=== PATIENT | male | born 1960 | race Caucasian/White ===

== ENCOUNTER → 2020-03-19 15:23 | Outpatient (BNVA) | payer BC, SELFPAY | PROVIDERS: PCP Family Medicine; Visit Provider Internal Medicine | DX: Z95.2 Presence of prosthetic heart valve (principal); Z51.81 Encounter for therapeutic drug level monitoring; Z79.01 Long term (current) use of anticoagulants | CPT/HCPCS: 85610 ==

== ENCOUNTER → 2020-04-16 15:00 | Outpatient (BNVA) | payer BC, SELFPAY | PROVIDERS: PCP Family Medicine; Visit Provider Internal Medicine | DX: Z95.2 Presence of prosthetic heart valve (principal); Z51.81 Encounter for therapeutic drug level monitoring; Z79.01 Long term (current) use of anticoagulants | CPT/HCPCS: 85610; 99211 ==

== ENCOUNTER → 2020-05-14 15:52 | Outpatient (BNVA) | payer BC, SELFPAY | PROVIDERS: PCP Family Medicine; Visit Provider Internal Medicine | DX: Z95.2 Presence of prosthetic heart valve (principal); Z51.81 Encounter for therapeutic drug level monitoring; Z79.01 Long term (current) use of anticoagulants | CPT/HCPCS: 85610; 99211 ==

== ENCOUNTER → 2020-06-11 15:45 | Outpatient (BNVA) | payer BC, SELFPAY | PROVIDERS: PCP Family Medicine; Visit Provider Internal Medicine | DX: Z95.2 Presence of prosthetic heart valve (principal); Z51.81 Encounter for therapeutic drug level monitoring; Z79.01 Long term (current) use of anticoagulants | CPT/HCPCS: 85610; 99211 ==

== ENCOUNTER → 2020-07-09 15:43 | Outpatient (BNVA) | payer BC, SELFPAY | PROVIDERS: PCP Family Medicine; Visit Provider Internal Medicine | DX: Z95.2 Presence of prosthetic heart valve (principal); Z51.81 Encounter for therapeutic drug level monitoring; Z79.01 Long term (current) use of anticoagulants | CPT/HCPCS: 85610; 99211 ==

== ENCOUNTER → 2020-07-23 15:48 | Outpatient (BNVA) | payer BC, SELFPAY | PROVIDERS: PCP Family Medicine; Visit Provider Internal Medicine | DX: Z95.2 Presence of prosthetic heart valve (principal); Z51.81 Encounter for therapeutic drug level monitoring; Z79.01 Long term (current) use of anticoagulants | CPT/HCPCS: 85610; 99211 ==

== ENCOUNTER → 2020-08-13 15:35 | Outpatient (BNVA) | payer BC, SELFPAY | PROVIDERS: PCP Nurse Practitioner Family; Visit Provider Internal Medicine | DX: Z95.2 Presence of prosthetic heart valve (principal); Z51.81 Encounter for therapeutic drug level monitoring; Z79.01 Long term (current) use of anticoagulants | CPT/HCPCS: 85610; 99211 ==

== ENCOUNTER → 2020-08-27 15:53 | Outpatient (BNVA) | payer BC, SELFPAY | PROVIDERS: PCP Nurse Practitioner Family; Visit Provider Internal Medicine | DX: Z95.2 Presence of prosthetic heart valve (principal); Z51.81 Encounter for therapeutic drug level monitoring; Z79.01 Long term (current) use of anticoagulants | CPT/HCPCS: 85610; 99211 ==

== ENCOUNTER → 2020-09-06 13:04 | Outpatient (BNVA) | payer BC, SELFPAY | PROVIDERS: PCP Nurse Practitioner Family; Visit Provider Internal Medicine | DX: Z95.2 Presence of prosthetic heart valve (principal); Z79.01 Long term (current) use of anticoagulants; Z51.81 Encounter for therapeutic drug level monitoring | CPT/HCPCS: 85610; 99211 ==

== ENCOUNTER → 2020-09-20 13:31 | Outpatient (BNVA) | payer BC, SELFPAY | PROVIDERS: PCP Nurse Practitioner Family; Visit Provider Internal Medicine | DX: Z95.2 Presence of prosthetic heart valve (principal); Z79.01 Long term (current) use of anticoagulants; Z51.81 Encounter for therapeutic drug level monitoring | CPT/HCPCS: 85610; 99211 ==

== ENCOUNTER → 2020-10-04 15:54 | Outpatient (BNVA) | payer BC, SELFPAY | PROVIDERS: PCP Nurse Practitioner Family; Visit Provider Internal Medicine | DX: Z95.2 Presence of prosthetic heart valve (principal); Z79.01 Long term (current) use of anticoagulants; Z51.81 Encounter for therapeutic drug level monitoring | CPT/HCPCS: 85610; 99211 ==

== ENCOUNTER → 2020-10-08 09:57 | Outpatient (BNVA) | payer BC, SELFPAY | PROVIDERS: PCP Nurse Practitioner Family; Visit Provider Internal Medicine | DX: Z95.2 Presence of prosthetic heart valve (principal); Z51.81 Encounter for therapeutic drug level monitoring; Z79.01 Long term (current) use of anticoagulants | CPT/HCPCS: 85610; 99211 ==

== ENCOUNTER → 2020-10-15 15:30 | Outpatient (BNVA) | payer BC, SELFPAY | PROVIDERS: PCP Nurse Practitioner Family; Visit Provider Internal Medicine | DX: Z95.2 Presence of prosthetic heart valve (principal); Z51.81 Encounter for therapeutic drug level monitoring; Z79.01 Long term (current) use of anticoagulants | CPT/HCPCS: 85610; 99211 ==

== ENCOUNTER → 2020-10-29 15:33 | Outpatient (BNVA) | payer BC, SELFPAY | PROVIDERS: PCP Nurse Practitioner Family; Visit Provider Internal Medicine | DX: Z95.2 Presence of prosthetic heart valve (principal); Z51.81 Encounter for therapeutic drug level monitoring; Z79.01 Long term (current) use of anticoagulants | CPT/HCPCS: 85610; 99211 ==

== ENCOUNTER → 2020-11-05 15:26 | Outpatient (BNVA) | payer BC, SELFPAY | PROVIDERS: PCP Nurse Practitioner Family; Visit Provider Internal Medicine | DX: Z95.2 Presence of prosthetic heart valve (principal); Z51.81 Encounter for therapeutic drug level monitoring; Z79.01 Long term (current) use of anticoagulants | CPT/HCPCS: 85610; 99211 ==

== ENCOUNTER → 2020-12-05 15:23 | Outpatient (BNVA) | payer BC, SELFPAY | PROVIDERS: PCP Nurse Practitioner Family; Visit Provider Internal Medicine | DX: Z95.2 Presence of prosthetic heart valve (principal); Z51.81 Encounter for therapeutic drug level monitoring; Z79.01 Long term (current) use of anticoagulants | CPT/HCPCS: 85610; 99211 ==

== ENCOUNTER → 2020-12-11 15:09 | Outpatient (BNVA) | payer BC, SELFPAY | PROVIDERS: PCP Nurse Practitioner Family; Visit Provider Internal Medicine | DX: Z95.2 Presence of prosthetic heart valve (principal); Z51.81 Encounter for therapeutic drug level monitoring; Z79.01 Long term (current) use of anticoagulants | CPT/HCPCS: 85610; 99211 ==

== ENCOUNTER → 2020-12-24 15:58 | Outpatient (BNVA) | payer BC, SELFPAY | PROVIDERS: PCP Nurse Practitioner Family; Visit Provider Internal Medicine | DX: Z95.2 Presence of prosthetic heart valve (principal); Z51.81 Encounter for therapeutic drug level monitoring; Z79.01 Long term (current) use of anticoagulants | CPT/HCPCS: 85610; 99211 ==

== ENCOUNTER → 2021-01-16 14:23 | Outpatient (BNVA) | payer BC, SELFPAY | PROVIDERS: PCP Nurse Practitioner Family; Visit Provider Internal Medicine | DX: Z95.2 Presence of prosthetic heart valve (principal); Z51.81 Encounter for therapeutic drug level monitoring; Z79.01 Long term (current) use of anticoagulants | CPT/HCPCS: 85610; 99211 ==

== ENCOUNTER → 2021-01-30 14:59 | Outpatient (BNVA) | payer BC, SELFPAY | PROVIDERS: PCP Nurse Practitioner Family; Visit Provider Internal Medicine | DX: Z95.2 Presence of prosthetic heart valve (principal); Z51.81 Encounter for therapeutic drug level monitoring; Z79.01 Long term (current) use of anticoagulants | CPT/HCPCS: 85610; 99211 ==

== ENCOUNTER → 2021-02-20 15:25 | Outpatient (BNVA) | payer BC, SELFPAY | PROVIDERS: PCP Nurse Practitioner Family; Visit Provider Internal Medicine | DX: Z95.2 Presence of prosthetic heart valve (principal); Z51.81 Encounter for therapeutic drug level monitoring; Z79.01 Long term (current) use of anticoagulants | CPT/HCPCS: 85610; 99211 ==

== ENCOUNTER → 2021-03-04 15:34 | Outpatient (BNVA) | payer BC, SELFPAY | PROVIDERS: PCP Nurse Practitioner Family; Visit Provider Internal Medicine | DX: Z95.2 Presence of prosthetic heart valve (principal); Z51.81 Encounter for therapeutic drug level monitoring; Z79.01 Long term (current) use of anticoagulants | CPT/HCPCS: 85610; 99211 ==

== ENCOUNTER → 2021-03-18 15:26 | Outpatient (BNVA) | payer BC, SELFPAY | PROVIDERS: PCP Nurse Practitioner Family; Visit Provider Internal Medicine | DX: Z95.2 Presence of prosthetic heart valve (principal); Z51.81 Encounter for therapeutic drug level monitoring; Z79.01 Long term (current) use of anticoagulants | CPT/HCPCS: 85610; 99211 ==

== ENCOUNTER → 2021-03-27 15:35 | Outpatient (BNVA) | payer BC, SELFPAY | PROVIDERS: PCP Nurse Practitioner Family; Visit Provider Internal Medicine | DX: Z95.2 Presence of prosthetic heart valve (principal); Z51.81 Encounter for therapeutic drug level monitoring; Z79.01 Long term (current) use of anticoagulants | CPT/HCPCS: 85610; 99211 ==

== ENCOUNTER → 2021-04-08 13:41 | Outpatient (BNVA) | payer BC, SELFPAY | PROVIDERS: PCP Nurse Practitioner Family; Visit Provider Internal Medicine | DX: Z95.2 Presence of prosthetic heart valve (principal); Z51.81 Encounter for therapeutic drug level monitoring; Z79.01 Long term (current) use of anticoagulants | CPT/HCPCS: 85610; 99211 ==

== ENCOUNTER → 2021-04-22 15:28 | Outpatient (BNVA) | payer BC, SELFPAY | PROVIDERS: PCP Nurse Practitioner Family; Visit Provider Internal Medicine | DX: Z95.2 Presence of prosthetic heart valve (principal); Z51.81 Encounter for therapeutic drug level monitoring; Z79.01 Long term (current) use of anticoagulants | CPT/HCPCS: 85610; 99211 ==

== ENCOUNTER → 2021-05-06 15:23 | Outpatient (BNVA) | payer BC, SELFPAY | PROVIDERS: PCP Nurse Practitioner Family; Visit Provider Internal Medicine | DX: Z95.2 Presence of prosthetic heart valve (principal); Z51.81 Encounter for therapeutic drug level monitoring; Z79.01 Long term (current) use of anticoagulants | CPT/HCPCS: 85610; 99211 ==

== ENCOUNTER → 2021-05-20 15:22 | Outpatient (BNVA) | payer BC, SELFPAY | PROVIDERS: PCP Nurse Practitioner Family; Visit Provider Internal Medicine | DX: Z95.2 Presence of prosthetic heart valve (principal); Z51.81 Encounter for therapeutic drug level monitoring; Z79.01 Long term (current) use of anticoagulants | CPT/HCPCS: 85610; 99211 ==

== ENCOUNTER → 2021-06-10 15:42 | Outpatient (BNVA) | payer BC, SELFPAY | PROVIDERS: PCP Nurse Practitioner Family; Visit Provider Internal Medicine | DX: Z95.2 Presence of prosthetic heart valve (principal); Z51.81 Encounter for therapeutic drug level monitoring; Z79.01 Long term (current) use of anticoagulants | CPT/HCPCS: 85610; 99211 ==

== ENCOUNTER → 2021-07-01 15:32 | Outpatient (BNVA) | payer BC, SELFPAY | PROVIDERS: PCP Nurse Practitioner Family; Visit Provider Internal Medicine | DX: Z95.2 Presence of prosthetic heart valve (principal); Z51.81 Encounter for therapeutic drug level monitoring; Z79.01 Long term (current) use of anticoagulants | CPT/HCPCS: 85610; 99211 ==

== ENCOUNTER → 2021-07-15 15:31 | Outpatient (BNVA) | payer BC, SELFPAY | PROVIDERS: PCP Nurse Practitioner Family; Visit Provider Internal Medicine | DX: Z95.2 Presence of prosthetic heart valve (principal); Z51.81 Encounter for therapeutic drug level monitoring; Z79.01 Long term (current) use of anticoagulants | CPT/HCPCS: 85610; 99211 ==

== ENCOUNTER → 2021-07-29 15:41 | Outpatient (BNVA) | payer BC, SELFPAY | PROVIDERS: PCP Nurse Practitioner Family; Visit Provider Internal Medicine | DX: Z95.2 Presence of prosthetic heart valve (principal); Z51.81 Encounter for therapeutic drug level monitoring; Z79.01 Long term (current) use of anticoagulants | CPT/HCPCS: 85610; 99211 ==

== ENCOUNTER → 2021-08-14 15:42 | Outpatient (BNVA) | payer BC, SELFPAY | PROVIDERS: PCP Nurse Practitioner Family; Visit Provider Internal Medicine | DX: Z95.2 Presence of prosthetic heart valve (principal); Z51.81 Encounter for therapeutic drug level monitoring; Z79.01 Long term (current) use of anticoagulants | CPT/HCPCS: 85610; 99211 ==

== ENCOUNTER → 2021-08-27 15:37 | Outpatient (BNVA) | payer BC, SELFPAY | PROVIDERS: PCP Nurse Practitioner Family; Visit Provider Internal Medicine | DX: Z95.2 Presence of prosthetic heart valve (principal); Z51.81 Encounter for therapeutic drug level monitoring; Z79.01 Long term (current) use of anticoagulants | CPT/HCPCS: 85610; 99211 ==

== ENCOUNTER → 2021-09-17 15:28 | Outpatient (BNVA) | payer BC, SELFPAY | PROVIDERS: PCP Family Medicine; Visit Provider Internal Medicine | DX: Z95.2 Presence of prosthetic heart valve (principal); Z79.01 Long term (current) use of anticoagulants; Z51.81 Encounter for therapeutic drug level monitoring | CPT/HCPCS: 85610; 99211 ==

== ENCOUNTER → 2021-10-08 15:07 | Outpatient (BNVA) | payer BC, SELFPAY | PROVIDERS: PCP Family Medicine; Visit Provider Internal Medicine | DX: Z95.2 Presence of prosthetic heart valve (principal); Z79.01 Long term (current) use of anticoagulants; Z51.81 Encounter for therapeutic drug level monitoring | CPT/HCPCS: 85610; 99211 ==

== ENCOUNTER → 2021-10-22 15:23 | Outpatient (BNVA) | payer BC, SELFPAY | PROVIDERS: PCP Family Medicine; Visit Provider Internal Medicine | DX: Z95.2 Presence of prosthetic heart valve (principal); Z51.81 Encounter for therapeutic drug level monitoring; Z79.01 Long term (current) use of anticoagulants | CPT/HCPCS: 85610; 99211 ==

== ENCOUNTER → 2021-11-06 09:58 | Outpatient (BNVA) | payer BC, SELFPAY | PROVIDERS: PCP Family Medicine; Visit Provider Internal Medicine | DX: Z95.2 Presence of prosthetic heart valve (principal); Z79.01 Long term (current) use of anticoagulants; Z51.81 Encounter for therapeutic drug level monitoring | CPT/HCPCS: 85610; 99211 ==

== ENCOUNTER → 2021-11-27 15:55 | Outpatient (BNVA) | payer BC, SELFPAY | PROVIDERS: PCP Family Medicine; Visit Provider Internal Medicine | DX: Z95.2 Presence of prosthetic heart valve (principal); Z51.81 Encounter for therapeutic drug level monitoring; Z79.01 Long term (current) use of anticoagulants | CPT/HCPCS: 85610; 99211 ==

== ENCOUNTER → 2021-12-08 15:39 | Outpatient (BNVA) | payer BC, SELFPAY | PROVIDERS: PCP Family Medicine; Visit Provider Internal Medicine | DX: Z95.2 Presence of prosthetic heart valve (principal); Z51.81 Encounter for therapeutic drug level monitoring; Z79.01 Long term (current) use of anticoagulants | CPT/HCPCS: 85610; 99211 ==

== ENCOUNTER → 2021-12-23 15:17 | Outpatient (BNVA) | payer BC, SELFPAY | PROVIDERS: PCP Family Medicine; Visit Provider Internal Medicine | DX: Z95.2 Presence of prosthetic heart valve (principal); Z51.81 Encounter for therapeutic drug level monitoring; Z79.01 Long term (current) use of anticoagulants | CPT/HCPCS: 85610; 99211 ==

== ENCOUNTER → 2022-01-06 15:41 | Outpatient (BNVA) | payer BC, SELFPAY | PROVIDERS: PCP Family Medicine; Visit Provider Internal Medicine | DX: Z95.0 Presence of cardiac pacemaker (principal); Z51.81 Encounter for therapeutic drug level monitoring; Z79.01 Long term (current) use of anticoagulants | CPT/HCPCS: 85610; 99211 ==

== ENCOUNTER → 2022-01-15 10:24 | Outpatient (BNVA) | payer BC, SELFPAY | PROVIDERS: PCP Family Medicine; Visit Provider Internal Medicine | DX: Z95.2 Presence of prosthetic heart valve (principal); Z51.81 Encounter for therapeutic drug level monitoring; Z79.01 Long term (current) use of anticoagulants | CPT/HCPCS: 85610; 99211 ==

== ENCOUNTER → 2022-01-28 15:24 | Outpatient (BNVA) | payer BC, SELFPAY | PROVIDERS: PCP Family Medicine; Visit Provider Internal Medicine | DX: Z95.2 Presence of prosthetic heart valve (principal); Z51.81 Encounter for therapeutic drug level monitoring; Z79.01 Long term (current) use of anticoagulants | CPT/HCPCS: 85610; 99211 ==

== ENCOUNTER → 2022-01-30 14:21 | Outpatient (BNVA) | payer BC, SELFPAY | PROVIDERS: PCP Family Medicine; Visit Provider Internal Medicine | DX: Z95.2 Presence of prosthetic heart valve (principal); Z51.81 Encounter for therapeutic drug level monitoring; Z79.01 Long term (current) use of anticoagulants | CPT/HCPCS: 85610; 99211 ==

== ENCOUNTER → 2022-02-06 08:16 | Outpatient (BNVA) | payer BC, SELFPAY | PROVIDERS: PCP Family Medicine; Visit Provider Internal Medicine | DX: Z95.2 Presence of prosthetic heart valve (principal); Z51.81 Encounter for therapeutic drug level monitoring; Z79.01 Long term (current) use of anticoagulants | CPT/HCPCS: 85610; 99211 ==

== ENCOUNTER → 2022-02-17 15:14 | Outpatient (BNVA) | payer SELFPAY | PROVIDERS: PCP Family Medicine; Visit Provider Internal Medicine | DX: Z95.2 Presence of prosthetic heart valve (principal); Z51.81 Encounter for therapeutic drug level monitoring; Z79.01 Long term (current) use of anticoagulants | CPT/HCPCS: 85610; 99212 ==

== ENCOUNTER → 2022-02-24 15:29 | Outpatient (BNVA) | payer SELFPAY | PROVIDERS: PCP Family Medicine; Visit Provider Internal Medicine | DX: Z95.2 Presence of prosthetic heart valve (principal); Z79.01 Long term (current) use of anticoagulants; Z51.81 Encounter for therapeutic drug level monitoring | CPT/HCPCS: 85610; 99211 ==

== ENCOUNTER → 2022-03-12 14:55 | Outpatient (BNVA) | payer BC, SELFPAY | PROVIDERS: PCP Family Medicine; Visit Provider Internal Medicine | DX: Z95.2 Presence of prosthetic heart valve (principal); Z79.01 Long term (current) use of anticoagulants; Z51.81 Encounter for therapeutic drug level monitoring | CPT/HCPCS: 85610; 99211 ==

== ENCOUNTER → 2022-03-31 15:37 | Outpatient (BNVA) | payer BC, SELFPAY | PROVIDERS: PCP Family Medicine; Visit Provider Internal Medicine | DX: Z95.2 Presence of prosthetic heart valve (principal); Z79.01 Long term (current) use of anticoagulants; Z51.81 Encounter for therapeutic drug level monitoring | CPT/HCPCS: 85610; 99211 ==

== ENCOUNTER → 2022-04-14 15:24 | Outpatient (BNVA) | payer BC, SELFPAY | PROVIDERS: PCP Family Medicine; Visit Provider Internal Medicine | DX: Z95.2 Presence of prosthetic heart valve (principal); Z79.01 Long term (current) use of anticoagulants; Z51.81 Encounter for therapeutic drug level monitoring | CPT/HCPCS: 85610; 99211 ==

== ENCOUNTER → 2022-04-21 15:25 | Outpatient (BNVA) | payer BC, SELFPAY | PROVIDERS: PCP Family Medicine; Visit Provider Internal Medicine | DX: Z95.2 Presence of prosthetic heart valve (principal); Z51.81 Encounter for therapeutic drug level monitoring; Z79.01 Long term (current) use of anticoagulants | CPT/HCPCS: 85610; 99211 ==

== ENCOUNTER → 2022-05-05 15:19 | Outpatient (BNVA) | payer BC, SELFPAY | PROVIDERS: PCP Family Medicine; Visit Provider Internal Medicine | DX: Z95.2 Presence of prosthetic heart valve (principal); Z51.81 Encounter for therapeutic drug level monitoring; Z79.01 Long term (current) use of anticoagulants | CPT/HCPCS: 85610; 99211 ==

== ENCOUNTER → 2022-05-26 15:20 | Outpatient (BNVA) | payer BC, SELFPAY | PROVIDERS: PCP Family Medicine; Visit Provider Internal Medicine | DX: Z95.2 Presence of prosthetic heart valve (principal); Z79.01 Long term (current) use of anticoagulants; Z51.81 Encounter for therapeutic drug level monitoring | CPT/HCPCS: 85610; 99211 ==

== ENCOUNTER → 2022-06-17 14:56 | Outpatient (BNVA) | payer BC, SELFPAY | PROVIDERS: PCP Family Medicine; Visit Provider Internal Medicine | DX: Z95.2 Presence of prosthetic heart valve (principal); Z51.81 Encounter for therapeutic drug level monitoring; Z79.01 Long term (current) use of anticoagulants | CPT/HCPCS: 85610; 99211 ==

== ENCOUNTER → 2022-07-07 15:34 | Outpatient (BNVA) | payer BC, SELFPAY | PROVIDERS: PCP Family Medicine; Visit Provider Internal Medicine | DX: Z95.2 Presence of prosthetic heart valve (principal); Z51.81 Encounter for therapeutic drug level monitoring; Z79.01 Long term (current) use of anticoagulants | CPT/HCPCS: 85610; 99211 ==

== ENCOUNTER 2022-07-28 15:17 | Outpatient (REF) | payer BC, SELFPAY ==
[2022-07-28 15:58] LABS: Prothrombin Time 101.8 SEC (10.0-13.1)
[2022-07-28 16:20] LABS: INTERNATIONAL NORM RATIO 8.1 (0.9-1.1)
== END 2022-07-28 15:18 | disposition home or self-care (01) ==
LOC: HO.LAB 15:17
PROVIDERS: PCP Family Medicine; Visit Provider Internal Medicine
DX: Z95.2 Presence of prosthetic heart valve (principal); Z51.81 Encounter for therapeutic drug level monitoring; Z79.01 Long term (current) use of anticoagulants
CPT/HCPCS: 36415; 85610; 99212

== ENCOUNTER → 2022-07-31 14:47 | Outpatient (BNVA) | payer BC, SELFPAY | PROVIDERS: PCP Family Medicine; Visit Provider Internal Medicine | DX: Z95.2 Presence of prosthetic heart valve (principal); Z51.81 Encounter for therapeutic drug level monitoring; Z79.01 Long term (current) use of anticoagulants | CPT/HCPCS: 85610; 99211 ==

== ENCOUNTER → 2022-08-07 14:26 | Outpatient (BNVA) | payer BC, SELFPAY | PROVIDERS: PCP Family Medicine; Visit Provider Internal Medicine | DX: Z95.2 Presence of prosthetic heart valve (principal); Z51.81 Encounter for therapeutic drug level monitoring; Z79.01 Long term (current) use of anticoagulants | CPT/HCPCS: 85610; 99211 ==

== ENCOUNTER → 2022-08-13 15:14 | Outpatient (BNVA) | payer BC, SELFPAY | PROVIDERS: PCP Family Medicine; Visit Provider Internal Medicine | DX: Z95.2 Presence of prosthetic heart valve (principal); Z51.81 Encounter for therapeutic drug level monitoring; Z70.1 Counseling related to patient's sexual behavior and orientation | CPT/HCPCS: 85610; 99211 ==

== ENCOUNTER → 2022-08-19 15:19 | Outpatient (BNVA) | payer BC, SELFPAY | PROVIDERS: PCP Family Medicine; Visit Provider Internal Medicine | DX: Z95.2 Presence of prosthetic heart valve (principal); Z51.81 Encounter for therapeutic drug level monitoring; Z79.01 Long term (current) use of anticoagulants | CPT/HCPCS: 85610; 99211 ==

== ENCOUNTER → 2022-08-25 15:27 | Outpatient (BNVA) | payer BC, SELFPAY | PROVIDERS: PCP Family Medicine; Visit Provider Internal Medicine | DX: Z95.2 Presence of prosthetic heart valve (principal); Z51.81 Encounter for therapeutic drug level monitoring; Z79.01 Long term (current) use of anticoagulants | CPT/HCPCS: 85610; 99211 ==

== ENCOUNTER → 2022-09-01 15:57 | Outpatient (BNVA) | payer BC, SELFPAY | PROVIDERS: PCP Family Medicine; Visit Provider Internal Medicine | DX: Z95.2 Presence of prosthetic heart valve (principal); Z51.81 Encounter for therapeutic drug level monitoring; Z79.01 Long term (current) use of anticoagulants | CPT/HCPCS: 85610; 99211 ==

== ENCOUNTER → 2022-09-08 15:36 | Outpatient (BNVA) | payer BC, SELFPAY | PROVIDERS: PCP Family Medicine; Visit Provider Internal Medicine | DX: Z95.2 Presence of prosthetic heart valve (principal); Z51.81 Encounter for therapeutic drug level monitoring; Z79.01 Long term (current) use of anticoagulants | CPT/HCPCS: 85610; 99211 ==

== ENCOUNTER → 2022-09-15 15:38 | Outpatient (BNVA) | payer BC, SELFPAY | PROVIDERS: PCP Family Medicine; Visit Provider Internal Medicine | DX: Z95.2 Presence of prosthetic heart valve (principal); Z51.81 Encounter for therapeutic drug level monitoring; Z79.01 Long term (current) use of anticoagulants | CPT/HCPCS: 85610; 99211 ==

== ENCOUNTER → 2022-09-22 15:18 | Outpatient (BNVA) | payer BC, SELFPAY | PROVIDERS: PCP Family Medicine; Visit Provider Internal Medicine | DX: Z95.2 Presence of prosthetic heart valve (principal); Z51.81 Encounter for therapeutic drug level monitoring; Z79.01 Long term (current) use of anticoagulants | CPT/HCPCS: 85610; 99211 ==

== ENCOUNTER → 2022-10-07 15:39 | Outpatient (BNVA) | payer BC, SELFPAY | PROVIDERS: PCP Family Medicine; Visit Provider Internal Medicine | DX: Z95.2 Presence of prosthetic heart valve (principal); Z51.81 Encounter for therapeutic drug level monitoring; Z79.01 Long term (current) use of anticoagulants | CPT/HCPCS: 85610; 99211 ==

== ENCOUNTER → 2022-10-28 15:31 | Outpatient (BNVA) | payer BC, SELFPAY | PROVIDERS: PCP Family Medicine; Visit Provider Internal Medicine | DX: Z95.2 Presence of prosthetic heart valve (principal); Z51.81 Encounter for therapeutic drug level monitoring; Z79.01 Long term (current) use of anticoagulants | CPT/HCPCS: 85610; 99211 ==

== ENCOUNTER → 2022-11-17 15:13 | Outpatient (BNVA) | payer BC, SELFPAY | PROVIDERS: PCP Family Medicine; Visit Provider Internal Medicine | DX: Z51.81 Encounter for therapeutic drug level monitoring (principal); Z79.01 Long term (current) use of anticoagulants; Z95.2 Presence of prosthetic heart valve | CPT/HCPCS: 85610; 99211 ==

== ENCOUNTER → 2022-12-02 15:25 | Outpatient (BNVA) | payer BC, SELFPAY | PROVIDERS: PCP Family Medicine; Visit Provider Internal Medicine | DX: Z51.81 Encounter for therapeutic drug level monitoring (principal); Z79.01 Long term (current) use of anticoagulants; Z95.2 Presence of prosthetic heart valve | CPT/HCPCS: 85610; 99211 ==

== ENCOUNTER 2022-12-30 15:47 | Outpatient (AMB) | payer BC, SELFPAY ==
[2022-12-30 15:54] LABS: Prothrombin Time Whole Bld POC 38.4 sec (11.1-13.5); ~PT, ~INR - Anti Coag Clinic 3.2 (0.9-1.1)
--- NOTE | 2022-12-30 15:59 | MHC.OFFVISCO ---
Intake Intake Visit Reasons: Anticoagulation Allergies meperidine [From Demerol] Allergy (Severe, Verified 12/30/22 15:47) DIFF BREATHING clopidogrel [From Plavix] Allergy (Intermediate, Verified 12/30/22 15:47) EDEMA allopurinol Allergy (Intermediate, Uncoded 12/30/22 15:47) Hives contrast dye Adverse Reaction (Intermediate, Uncoded 12/30/22 15:47) Hives Medication List - Last Reconciled 12/30/22 by Marguerite Mcclelland RN amoxicillin 2,000 mg PO ONCE PRN aspirin (Adult Low Dose Aspirin) 81 mg PO DAILY ergocalciferol (vitamin D2) 1,250 mcg PO QWEEK fenofibrate micronized 134 mg PO DAILY hydrochlorothiazide 25 mg PO DAILY insulin glargine (Lantus Solostar U-100 Insulin) subcut every morning; metformin ER 1,500 mg PO DAILY metoprolol tartrate 100 mg PO BID metronidazole 1% topical pen needle, diabetic As directed rosuvastatin 40 mg PO DAILY semaglutide 0.5 mg subcut QWEEK warfarin 4 mg See Protocol PO DAILY Nursing Note INR: 3.2 in therapeutic range Medications and supplements reviewed No changes in diet, medications, or supplements, STATES HIS VISION HAS 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 Bleeding, bruising, clotting discussed Nutritional guidance given - KEEP EATING AMIX OF FRUITS AND VEGETABLES Dose: KEEP SAME 6MG X 3 DAYS / 4MG X 4 DAYS F/U INR: 01/26/23Wednesday Patient verbalizes understanding of instructions given Coding Level of Care Code Est Patient Level 1 Diagnoses Current use of anticoagulant therapy Z79.01 Assessment & Plan Assessment & Plan (1) Current use of anticoagulant therapy: Code(s): Z79.01 - shelter (current) use of anticoagulants Category: Medical
== END 2022-12-30 16:01 | disposition home or self-care (01) ==
LOC: HO.ACS 15:47
PROVIDERS: PCP Family Medicine; Visit Provider Internal Medicine
DX: Z79.01 Long term (current) use of anticoagulants (principal)

== ENCOUNTER → 2022-12-30 15:47 | Outpatient (BNVA) | payer BC, SELFPAY | PROVIDERS: PCP Family Medicine; Visit Provider Internal Medicine | DX: Z51.81 Encounter for therapeutic drug level monitoring (principal); Z79.01 Long term (current) use of anticoagulants; Z95.2 Presence of prosthetic heart valve | CPT/HCPCS: 85610; 99211 ==

== ENCOUNTER 2023-01-26 15:30 | Outpatient (AMB) | payer BC, SELFPAY ==
--- NOTE | 2023-01-26 15:35 | MHC.OFFVISCO ---
Intake Intake Visit Reasons: Anticoagulation Allergies meperidine [From Demerol] Allergy (Severe, Verified 01/26/23 15:30) DIFF BREATHING clopidogrel [From Plavix] Allergy (Intermediate, Verified 01/26/23 15:30) EDEMA allopurinol Allergy (Intermediate, Uncoded 01/26/23 15:30) Hives contrast dye Adverse Reaction (Intermediate, Uncoded 01/26/23 15:30) Hives Medication List - Last Reconciled 01/26/23 by Blanca Pavon RN amoxicillin 2,000 mg PO ONCE PRN aspirin (Adult Low Dose Aspirin) 81 mg PO DAILY ergocalciferol (vitamin D2) 1,250 mcg PO QWEEK fenofibrate micronized 134 mg PO DAILY hydrochlorothiazide 25 mg PO DAILY insulin glargine (Lantus Solostar U-100 Insulin) subcut every morning; metformin ER 1,500 mg PO DAILY metoprolol tartrate 100 mg PO BID metronidazole 1% topical pen needle, diabetic As directed rosuvastatin 40 mg PO DAILY semaglutide 0.5 mg subcut QWEEK warfarin 4 mg See Protocol PO DAILY Nursing Note INR 2.3-? out of therapeutic range- unsure if missed a dose Medications and supplements reviewed Patient status: pt recent vacation Medications or supplements: no changes Diet: same Denies any signs and symptoms of bleeding or clotting or unusual bruising Bleeding, bruising, clotting discussed Nutritional guidance given: no greens for 2 days, will have a red today Dose: 6mg today then cont reg 6mg x 3, 4mg x 4 F/U INR Date : 2 weeks?? Patient verbalizing understanding of instructions given. 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
[2023-01-26 15:36] LABS: Prothrombin Time Whole Bld POC 27.7 sec (11.1-13.5); ~PT, ~INR - Anti Coag Clinic 2.3 (0.9-1.1)
== END 2023-01-26 15:42 | disposition home or self-care (01) ==
LOC: HO.ACS 15:30
PROVIDERS: PCP Family Medicine; Visit Provider Internal Medicine
DX: Z79.01 Long term (current) use of anticoagulants (principal)

== ENCOUNTER → 2023-01-26 15:30 | Outpatient (BNVA) | payer BC, SELFPAY | PROVIDERS: PCP Family Medicine; Visit Provider Internal Medicine | DX: Z95.2 Presence of prosthetic heart valve (principal); Z51.81 Encounter for therapeutic drug level monitoring; Z79.01 Long term (current) use of anticoagulants | CPT/HCPCS: 85610; 99211 ==

== ENCOUNTER 2023-02-09 15:26 | Outpatient (AMB) | payer BC, SELFPAY ==
[2023-02-09 15:34] LABS: Prothrombin Time Whole Bld POC 35.6 sec (11.1-13.5)
--- NOTE | 2023-02-09 15:36 | MHC.OFFVISCO ---
Intake Intake Visit Reasons: Anticoagulation Allergies meperidine [From Demerol] Allergy (Severe, Verified 02/09/23 15:27) DIFF BREATHING clopidogrel [From Plavix] Allergy (Intermediate, Verified 02/09/23 15:27) EDEMA allopurinol Allergy (Intermediate, Uncoded 02/09/23 15:27) Hives contrast dye Adverse Reaction (Intermediate, Uncoded 02/09/23 15:27) Hives Medication List - Last Reconciled 02/09/23 by Kimi Garcia RN amoxicillin 2,000 mg PO ONCE PRN aspirin (Adult Low Dose Aspirin) 81 mg PO DAILY fenofibrate micronized 134 mg PO DAILY hydrochlorothiazide 25 mg PO DAILY insulin glargine (Lantus Solostar U-100 Insulin) subcut every morning; metformin ER 1,500 mg PO DAILY metoprolol tartrate 100 mg PO BID metronidazole 1% topical pen needle, diabetic As directed rosuvastatin 40 mg PO DAILY semaglutide 0.5 mg subcut QWEEK warfarin 4 mg See Protocol PO DAILY Nursing Note Amb to [facility] feeling well Medications and supplements reviewed No changes in health, diet, medications, or supplements Denies any unusual signs and symptoms of bruising, bleeding Denies any new Chest pain, SOB, or clotting INR: 3.0 in therapeutic range Nutritional guidance given: balance greens and reds in diet Dose: continue usual dosing;6mg x 3 days and 4mg x 4 days F/U INR: ppt will be in [place] for vacation so f/u 3 weeks Patient verbalizes understanding of instructions given with accurate read back/ teach back of dosing Coding Level of Care Code Est Patient Level 1 Diagnoses Current use of anticoagulant therapy Z79.01 Time Spent (min) 15 Assessment & Plan Assessment & Plan (1) Current use of anticoagulant therapy: Code(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
== END 2023-02-09 15:39 | disposition home or self-care (01) ==
LOC: HO.ACS 15:26
PROVIDERS: PCP Family Medicine; Visit Provider Internal Medicine
DX: Z79.01 Long term (current) use of anticoagulants (principal)

== ENCOUNTER → 2023-02-09 15:26 | Outpatient (BNVA) | payer BC, SELFPAY | PROVIDERS: PCP Family Medicine; Visit Provider Internal Medicine | DX: Z95.2 Presence of prosthetic heart valve (principal); Z51.81 Encounter for therapeutic drug level monitoring; Z79.01 Long term (current) use of anticoagulants | CPT/HCPCS: 85610; 99211 ==

== ENCOUNTER 2023-03-03 08:28 | Outpatient (AMB) | payer BC, SELFPAY ==
--- NOTE | 2023-03-03 08:33 | MHC.OFFVISCO ---
Intake Intake Visit Reasons: Anticoagulation Allergies meperidine [From Demerol] Allergy (Severe, Verified 03/03/23 08:29) DIFF BREATHING clopidogrel [From Plavix] Allergy (Intermediate, Verified 03/03/23 08:29) EDEMA allopurinol Allergy (Intermediate, Uncoded 03/03/23 08:29) Hives contrast dye Adverse Reaction (Intermediate, Uncoded 03/03/23 08:29) Hives Medication List - Last Reconciled 03/03/23 by Blanca Pavon RN amoxicillin 2,000 mg PO ONCE PRN aspirin (Adult Low Dose Aspirin) 81 mg PO DAILY fenofibrate micronized 134 mg PO DAILY hydrochlorothiazide 25 mg PO DAILY insulin glargine (Lantus Solostar U-100 Insulin) subcut every morning; metformin ER 1,500 mg PO DAILY metoprolol tartrate 100 mg PO BID metronidazole 1% topical pen needle, diabetic As directed rosuvastatin 40 mg PO DAILY semaglutide 0.5 mg subcut QWEEK warfarin 4 mg See Protocol PO DAILY Nursing Note INR: 3.4- in therapeutic range Medications and supplements reviewed No changes in health, diet, medications, or supplements, Denies any signs and symptoms of bleeding or bruising or clotting. 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
[2023-03-03 08:34] LABS: Prothrombin Time Whole Bld POC 41.1 sec (11.1-13.5); ~PT, ~INR - Anti Coag Clinic 3.4 (0.9-1.1)
== END 2023-03-03 08:38 | disposition home or self-care (01) ==
LOC: HO.ACS 08:28
PROVIDERS: PCP Family Medicine; Visit Provider Internal Medicine
DX: Z79.01 Long term (current) use of anticoagulants (principal)

== ENCOUNTER → 2023-03-03 08:28 | Outpatient (BNVA) | payer BC, SELFPAY | PROVIDERS: PCP Family Medicine; Visit Provider Internal Medicine | DX: Z95.2 Presence of prosthetic heart valve (principal); Z51.81 Encounter for therapeutic drug level monitoring; Z79.01 Long term (current) use of anticoagulants | CPT/HCPCS: 85610; 99211 ==

== ENCOUNTER 2023-03-23 11:54 | Outpatient (AMB) | payer BC, SELFPAY ==
--- NOTE | 2023-03-23 12:00 | MHC.OFFVISCO ---
Intake Intake Visit Reasons: Anticoagulation Allergies meperidine [From Demerol] Allergy (Severe, Verified 03/23/23 11:55) DIFF BREATHING clopidogrel [From Plavix] Allergy (Intermediate, Verified 03/23/23 11:55) EDEMA allopurinol Allergy (Intermediate, Uncoded 03/23/23 11:55) Hives contrast dye Adverse Reaction (Intermediate, Uncoded 03/23/23 11:55) Hives Medication List - Last Reconciled 03/23/23 by Marguerite Mcclelland RN amoxicillin 2,000 mg PO ONCE PRN aspirin (Adult Low Dose Aspirin) 81 mg PO DAILY fenofibrate micronized 134 mg PO DAILY hydrochlorothiazide 25 mg PO DAILY insulin glargine (Lantus Solostar U-100 Insulin) subcut every morning; metformin ER 1,500 mg PO DAILY metoprolol tartrate 100 mg PO BID metronidazole 1% topical pen needle, diabetic As directed rosuvastatin 40 mg PO DAILY semaglutide 0.5 mg subcut QWEEK sildenafil mg PO warfarin 4 mg See Protocol PO DAILY Nursing Note INR: 3.5 in therapeutic range Medications and supplements reviewed No changes in health, diet, medications, or supplements, Denies any signs and symptoms of bleeding or bruising or clotting. Bleeding, bruising, clotting discussed Nutritional guidance given - [employer] WILL LOWER YOUR INR MORE, ALLOWS MORE VIT K ABOSRPTION Dose: 6MG MWF/ 4MG X 4 DAYS F/U INR: 3 WEEKS Patient verbalizes understanding of instructions given Coding Level of Care Code Est Patient Level 1 Diagnoses Current use of anticoagulant therapy Z79.01 Assessment & Plan Assessment & Plan (1) Current use of anticoagulant therapy: Code(s): Z79.01 - USP (current) use of anticoagulants Category: Medical
[2023-03-23 12:04] LABS: Prothrombin Time Whole Bld POC 42.5 sec (11.1-13.5); ~PT, ~INR - Anti Coag Clinic 3.5 (0.9-1.1)
== END 2023-03-23 12:10 | disposition home or self-care (01) ==
LOC: HO.ACS 11:54
PROVIDERS: PCP Family Medicine; Visit Provider Internal Medicine
DX: Z79.01 Long term (current) use of anticoagulants (principal)

== ENCOUNTER → 2023-03-23 11:54 | Outpatient (BNVA) | payer BC, SELFPAY | PROVIDERS: PCP Family Medicine; Visit Provider Internal Medicine | DX: Z95.2 Presence of prosthetic heart valve (principal); Z51.81 Encounter for therapeutic drug level monitoring; Z79.01 Long term (current) use of anticoagulants | CPT/HCPCS: 85610; 99211 ==

== ENCOUNTER 2023-04-13 15:29 | Outpatient (AMB) | payer BC, SELFPAY ==
[2023-04-13 15:37] LABS: Prothrombin Time Whole Bld POC 35.8 sec (11.1-13.5)
--- NOTE | 2023-04-13 15:42 | MHC.OFFVISCO ---
Intake Intake Visit Reasons: Anticoagulation Allergies meperidine [From Demerol] Allergy (Severe, Verified 04/13/23 15:29) DIFF BREATHING clopidogrel [From Plavix] Allergy (Intermediate, Verified 04/13/23 15:29) EDEMA allopurinol Allergy (Intermediate, Uncoded 04/13/23 15:29) Hives contrast dye Adverse Reaction (Intermediate, Uncoded 04/13/23 15:29) Hives Medication List - Last Reconciled 04/13/23 by Marguerite Mcclelland RN amoxicillin 2,000 mg PO ONCE PRN aspirin (Adult Low Dose Aspirin) 81 mg PO DAILY fenofibrate micronized 134 mg PO DAILY hydrochlorothiazide 25 mg PO DAILY insulin glargine (Lantus Solostar U-100 Insulin) subcut every morning; metformin ER 1,500 mg PO DAILY metoprolol tartrate 100 mg PO BID metronidazole 1% topical pen needle, diabetic As directed rosuvastatin 40 mg PO DAILY semaglutide 0.5 mg subcut QWEEK sildenafil mg PO warfarin 4 mg See Protocol PO DAILY Nursing Note INR: 3.0 in therapeutic range Medications and supplements reviewed No changes in health, diet, medications, or supplements, Denies any signs and symptoms of bleeding or bruising or clotting. 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
== END 2023-04-13 15:45 | disposition home or self-care (01) ==
LOC: HO.ACS 15:29
PROVIDERS: PCP Family Medicine; Visit Provider Internal Medicine
DX: Z79.01 Long term (current) use of anticoagulants (principal)

== ENCOUNTER → 2023-04-13 15:29 | Outpatient (BNVA) | payer BC, SELFPAY | PROVIDERS: PCP Family Medicine; Visit Provider Internal Medicine | DX: Z95.2 Presence of prosthetic heart valve (principal); Z51.81 Encounter for therapeutic drug level monitoring; Z79.01 Long term (current) use of anticoagulants | CPT/HCPCS: 85610; 99211 ==

== ENCOUNTER 2023-05-04 15:27 | Outpatient (AMB) | payer BC, SELFPAY ==
--- NOTE | 2023-05-04 15:31 | MHC.OFFVISCO ---
Intake Intake Visit Reasons: Anticoagulation Allergies meperidine [From Demerol] Allergy (Severe, Verified 04/13/23 15:29) DIFF BREATHING clopidogrel [From Plavix] Allergy (Intermediate, Verified 04/13/23 15:29) EDEMA allopurinol Allergy (Intermediate, Uncoded 04/13/23 15:29) Hives contrast dye Adverse Reaction (Intermediate, Uncoded 04/13/23 15:29) Hives Medication List - Last Reconciled 05/04/23 by Blanca Pavon RN amoxicillin 2,000 mg PO ONCE PRN aspirin (Adult Low Dose Aspirin) 81 mg PO DAILY fenofibrate micronized 134 mg PO DAILY hydrochlorothiazide 25 mg PO DAILY insulin glargine (Lantus Solostar U-100 Insulin) subcut every morning; metformin ER 1,500 mg PO DAILY metoprolol tartrate 100 mg PO BID metronidazole 1% topical pen needle, diabetic As directed rosuvastatin 40 mg PO DAILY semaglutide 0.5 mg subcut QWEEK sildenafil mg PO warfarin 4 mg See Protocol PO DAILY Nursing Note INR 2.0-?? out of therapeutic range of 2.5-3.5 Medications and supplements reviewed Patient status: no c.o, pt states may have missed a dose Medications or supplements: no changes Diet: same Denies any signs and symptoms of bleeding or clotting or unusual bruising Bleeding, bruising, clotting discussed Nutritional guidance given: no greens for 2 days, will eat a red today and tomm Dose: 6mg today then cont reg 6mg x 3, 4mg x 4 F/U INR Date : 1 week? Patient verbalizing understanding of instructions given. pcp office dr horta called with low inr/dosing and f/u appt- spoke to [facility] at 1542. made aware of missed dose. ? 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
[2023-05-04 15:32] LABS: Prothrombin Time Whole Bld POC 24.3 sec (11.1-13.5)
== END 2023-05-04 15:53 | disposition home or self-care (01) ==
PROVIDERS: PCP Family Medicine; Visit Provider Internal Medicine
DX: Z79.01 Long term (current) use of anticoagulants (principal)

== ENCOUNTER → 2023-05-04 15:27 | Outpatient (BNVA) | payer BC, SELFPAY | PROVIDERS: PCP Family Medicine; Visit Provider Internal Medicine | DX: Z95.2 Presence of prosthetic heart valve (principal); Z51.81 Encounter for therapeutic drug level monitoring; Z79.01 Long term (current) use of anticoagulants | CPT/HCPCS: 85610; 99211 ==

== ENCOUNTER 2023-05-06 14:23 | Outpatient (AMB) | payer BC, SELFPAY ==
--- NOTE | 2023-05-06 14:40 | MHC.OFFVISCO ---
Intake Intake Visit Reasons: Anticoagulation Allergies meperidine [From Demerol] Allergy (Severe, Verified 05/06/23 14:36) DIFF BREATHING clopidogrel [From Plavix] Allergy (Intermediate, Verified 05/06/23 14:36) EDEMA allopurinol Allergy (Intermediate, Uncoded 05/06/23 14:36) Hives contrast dye Adverse Reaction (Intermediate, Uncoded 05/06/23 14:36) Hives Medication List - Last Reconciled 05/06/23 by Blanca Pavon RN amoxicillin 2,000 mg PO ONCE PRN aspirin (Adult Low Dose Aspirin) 81 mg PO DAILY fenofibrate micronized 134 mg PO DAILY hydrochlorothiazide 25 mg PO DAILY insulin glargine (Lantus Solostar U-100 Insulin) subcut every morning; metformin ER 1,500 mg PO DAILY metoprolol tartrate 100 mg PO BID metronidazole 1% topical pen needle, diabetic As directed rosuvastatin 40 mg PO DAILY semaglutide 0.5 mg subcut QWEEK sildenafil mg PO warfarin 4 mg See Protocol PO DAILY Nursing Note INR 2.2-? out of therapeutic range of 2.5-3.5 Medications and supplements reviewed Patient status: cont with low inr Medications or supplements: no changes Diet: same Denies any signs and symptoms of bleeding or clotting or unusual bruising Bleeding, bruising, clotting discussed Nutritional guidance given: no greens, eat reds today Dose: 6mg today continue lovenox until inr therapeutic F/U INR Date : 05/07/23?? Patient verbalizing understanding of instructions given. Coding Level of Care Code Est Patient Level 1 Diagnoses Current use of anticoagulant therapy Z79.01 Results AMB INR Fingerstick AMB INR Fingerstick 2.2 Last Edit by Blanca Pavon RN on 05/06/23 14:42 Assessment & Plan Assessment & Plan (1) Current use of anticoagulant therapy: Code(s): Z79.01 - senior living (current) use of anticoagulants Category: Medical
[2023-05-07 08:05] LABS: Prothrombin Time Whole Bld POC 26.3 sec (11.1-13.5); ~PT, ~INR - Anti Coag Clinic 2.2 (0.9-1.1)
== END 2023-05-06 15:03 | disposition home or self-care (01) ==
LOC: HO.ACS 14:23
PROVIDERS: PCP Family Medicine; Visit Provider Internal Medicine
DX: Z79.01 Long term (current) use of anticoagulants (principal)

== ENCOUNTER → 2023-05-06 14:23 | Outpatient (BNVA) | payer BC, SELFPAY | PROVIDERS: PCP Family Medicine; Visit Provider Internal Medicine | DX: Z95.2 Presence of prosthetic heart valve (principal); Z51.81 Encounter for therapeutic drug level monitoring; Z79.01 Long term (current) use of anticoagulants | CPT/HCPCS: 85610; 99211 ==

== ENCOUNTER 2023-05-07 15:02 | Outpatient (AMB) | payer BC, SELFPAY ==
--- NOTE | 2023-05-07 15:06 | MHC.OFFVISCO ---
Intake Intake Visit Reasons: Anticoagulation Allergies meperidine [From Demerol] Allergy (Severe, Verified 05/07/23 15:02) DIFF BREATHING clopidogrel [From Plavix] Allergy (Intermediate, Verified 05/07/23 15:02) EDEMA allopurinol Allergy (Intermediate, Uncoded 05/07/23 15:02) Hives contrast dye Adverse Reaction (Intermediate, Uncoded 05/06/23 14:36) Hives Medication List - Last Reconciled 05/07/23 by Blanca Pavon RN amoxicillin 2,000 mg PO ONCE PRN aspirin (Adult Low Dose Aspirin) 81 mg PO DAILY fenofibrate micronized 134 mg PO DAILY hydrochlorothiazide 25 mg PO DAILY insulin glargine (Lantus Solostar U-100 Insulin) subcut every morning; metformin ER 1,500 mg PO DAILY metoprolol tartrate 100 mg PO BID metronidazole 1% topical pen needle, diabetic As directed rosuvastatin 40 mg PO DAILY semaglutide 0.5 mg subcut QWEEK sildenafil mg PO warfarin 4 mg See Protocol PO DAILY Nursing Note INR 2.4?? out of therapeutic range of 2.5-3.5 Medications and supplements reviewed Patient status: no c.o Medications or supplements: no changes Diet: same Denies any signs and symptoms of bleeding or clotting or unusual bruising Bleeding, bruising, clotting discussed Nutritional guidance given: no greens for 2 days, eat reds to raise Dose: 6mg today, then cont reg 6mg x 3, 4mg x 4 cont lovenox F/U INR Date : wed05/10/23?? Patient verbalizing understanding of instructions given. Coding Level of Care Code Est Patient Level 1 Diagnoses Current use of anticoagulant therapy Z79.01 Assessment & Plan Assessment & Plan (1) Current use of anticoagulant therapy: Code(s): Z79.01 - longterm (current) use of anticoagulants Category: Medical
[2023-05-07 15:07] LABS: Prothrombin Time Whole Bld POC 28.4 sec (11.1-13.5); ~PT, ~INR - Anti Coag Clinic 2.4 (0.9-1.1)
== END 2023-05-07 15:21 | disposition home or self-care (01) ==
LOC: HO.ACS 15:02
PROVIDERS: PCP Family Medicine; Visit Provider Internal Medicine
DX: Z79.01 Long term (current) use of anticoagulants (principal)

== ENCOUNTER → 2023-05-07 15:02 | Outpatient (BNVA) | payer BC, SELFPAY | PROVIDERS: PCP Family Medicine; Visit Provider Internal Medicine | DX: Z95.2 Presence of prosthetic heart valve (principal); Z51.81 Encounter for therapeutic drug level monitoring; Z79.01 Long term (current) use of anticoagulants | CPT/HCPCS: 85610; 99211 ==

== ENCOUNTER 2023-05-10 15:31 | Outpatient (AMB) | payer BC, SELFPAY ==
[2023-05-10 15:39] LABS: Prothrombin Time Whole Bld POC 34.8 sec (11.1-13.5); ~PT, ~INR - Anti Coag Clinic 2.9 (0.9-1.1)
--- NOTE | 2023-05-10 15:46 | MHC.OFFVISCO ---
Intake Intake Visit Reasons: Anticoagulation Allergies meperidine [From Demerol] Allergy (Severe, Verified 05/10/23 15:31) DIFF BREATHING clopidogrel [From Plavix] Allergy (Intermediate, Verified 05/10/23 15:31) EDEMA allopurinol Allergy (Intermediate, Uncoded 05/10/23 15:31) Hives contrast dye Adverse Reaction (Intermediate, Uncoded 05/10/23 15:31) Hives Medication List - Last Reconciled 05/10/23 by Marguerite Mcclelland RN amoxicillin 2,000 mg PO ONCE PRN aspirin (Adult Low Dose Aspirin) 81 mg PO DAILY fenofibrate micronized 134 mg PO DAILY hydrochlorothiazide 25 mg PO DAILY insulin glargine (Lantus Solostar U-100 Insulin) subcut every morning; metformin ER 1,500 mg PO DAILY metoprolol tartrate 100 mg PO BID metronidazole 1% topical pen needle, diabetic As directed rosuvastatin 40 mg PO DAILY semaglutide 0.5 mg subcut QWEEK sildenafil mg PO warfarin 4 mg See Protocol PO DAILY Nursing Note INR: 2.9 in therapeutic range- INR DIPPED LOW 05/04/23 WHEN HE MISSED A DOSE AND TOOK 6 DAYS TO RECOVER Medications and supplements reviewed No changes in health, diet, medications, or supplements, Denies any signs and symptoms of bleeding or bruising or clotting. Bleeding, bruising, clotting discussed Nutritional guidance given : REVIEW FOOD LIST WEEKLY DURING THE HOLIDAYS AND BALANCE YOUR DIET THE BEST YOU CAN Dose: RESUME USUAL DOSE 6MG X 3 DAYS / 4MG X 4 DAYS - STOP LOVENOX F/U INR: 3 WEEKS Patient verbalizes understanding of instructions given Coding Level of Care Code Est Patient Level 1 Diagnoses Current use of anticoagulant therapy Z79.01 Results AMB INR Fingerstick AMB INR Fingerstick 2.9 Last Edit by Marguerite Mcclelland RN on 05/10/23 15:41 manual entry interface failure Assessment & Plan Assessment & Plan (1) Current use of anticoagulant therapy: Code(s): 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
== END 2023-05-10 15:49 | disposition home or self-care (01) ==
LOC: HO.ACS 15:31
PROVIDERS: PCP Family Medicine; Visit Provider Internal Medicine
DX: Z79.01 Long term (current) use of anticoagulants (principal)

== ENCOUNTER → 2023-05-10 15:31 | Outpatient (BNVA) | payer BC, SELFPAY | PROVIDERS: PCP Family Medicine; Visit Provider Internal Medicine | DX: Z95.2 Presence of prosthetic heart valve (principal); Z51.81 Encounter for therapeutic drug level monitoring; Z79.01 Long term (current) use of anticoagulants | CPT/HCPCS: 85610; 99211 ==

== ENCOUNTER 2023-06-01 15:25 | Outpatient (AMB) | payer BC, SELFPAY ==
--- NOTE | 2023-06-01 15:31 | MHC.OFFVISCO ---
Intake Intake Visit Reasons: Anticoagulation Allergies meperidine [From Demerol] Allergy (Severe, Verified 06/01/23 15:26) DIFF BREATHING clopidogrel [From Plavix] Allergy (Intermediate, Verified 06/01/23 15:26) EDEMA allopurinol Allergy (Intermediate, Uncoded 06/01/23 15:26) Hives contrast dye Adverse Reaction (Intermediate, Uncoded 06/01/23 15:26) Hives Medication List - Last Reconciled 06/01/23 by Blanca Pavon RN amoxicillin 2,000 mg PO ONCE PRN aspirin (Adult Low Dose Aspirin) 81 mg PO DAILY fenofibrate micronized 134 mg PO DAILY hydrochlorothiazide 25 mg PO DAILY insulin glargine (Lantus Solostar U-100 Insulin) subcut every morning; metformin ER 1,500 mg PO DAILY metoprolol tartrate 100 mg PO BID metronidazole 1% topical pen needle, diabetic As directed rosuvastatin 40 mg PO DAILY semaglutide 0.5 mg subcut QWEEK sildenafil mg PO warfarin 4 mg See Protocol PO DAILY Nursing Note INR: 2.6- in therapeutic range of 2.5-3.5 Medications and supplements reviewed- no changes No changes in health, diet, medications, or supplements, Denies any signs and symptoms of bleeding or bruising or clotting. 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
[2023-06-01 15:32] LABS: Prothrombin Time Whole Bld POC 31.7 sec (11.1-13.5); ~PT, ~INR - Anti Coag Clinic 2.6 (0.9-1.1)
== END 2023-06-01 15:36 | disposition home or self-care (01) ==
LOC: HO.ACS 15:25
PROVIDERS: PCP Family Medicine; Visit Provider Internal Medicine
DX: Z79.01 Long term (current) use of anticoagulants (principal)

== ENCOUNTER → 2023-06-01 15:25 | Outpatient (BNVA) | payer BC, SELFPAY | PROVIDERS: PCP Family Medicine; Visit Provider Internal Medicine | DX: Z95.2 Presence of prosthetic heart valve (principal); Z51.81 Encounter for therapeutic drug level monitoring; Z79.01 Long term (current) use of anticoagulants | CPT/HCPCS: 85610; 99211 ==

== ENCOUNTER 2023-07-07 14:55 | Outpatient (AMB) | payer BC, SELFPAY ==
--- NOTE | 2023-07-07 14:59 | MHC.OFFVISCO ---
Intake Intake Visit Reasons: Anticoagulation Allergies meperidine [From Demerol] Allergy (Severe, Verified 07/07/23 14:55) DIFF BREATHING clopidogrel [From Plavix] Allergy (Intermediate, Verified 07/07/23 14:55) EDEMA allopurinol Allergy (Intermediate, Uncoded 07/07/23 14:55) Hives contrast dye Adverse Reaction (Intermediate, Uncoded 07/07/23 14:55) Hives Medication List - Last Reconciled 07/07/23 by Blanca Pavon RN amoxicillin 2,000 mg PO ONCE PRN aspirin (Adult Low Dose Aspirin) 81 mg PO DAILY fenofibrate micronized 134 mg PO DAILY hydrochlorothiazide 25 mg PO DAILY insulin glargine (Lantus Solostar U-100 Insulin) subcut every morning; metformin ER 1,500 mg PO DAILY metoprolol tartrate 100 mg PO BID metronidazole 1% topical pen needle, diabetic As directed rosuvastatin 40 mg PO DAILY semaglutide 0.5 mg subcut QWEEK sildenafil mg PO warfarin 4 mg See Protocol PO DAILY Nursing Note INR: 3.2-in therapeutic range of 2.5-3.5 Medications and supplements reviewed- no changes No changes in health, diet, medications, or supplements, Denies any signs and symptoms of bleeding or bruising or clotting. 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
[2023-07-07 15:01] LABS: ~PT, ~INR - Anti Coag Clinic 3.2 (0.9-1.1)
== END 2023-07-07 15:04 | disposition home or self-care (01) ==
LOC: HO.ACS 14:55
PROVIDERS: PCP Family Medicine; Visit Provider Internal Medicine
DX: Z79.01 Long term (current) use of anticoagulants (principal)

== ENCOUNTER → 2023-07-07 14:55 | Outpatient (BNVA) | payer BC, SELFPAY | PROVIDERS: PCP Family Medicine; Visit Provider Internal Medicine | DX: Z95.2 Presence of prosthetic heart valve (principal); Z51.81 Encounter for therapeutic drug level monitoring; Z79.01 Long term (current) use of anticoagulants | CPT/HCPCS: 85610; 99211 ==

== ENCOUNTER 2023-08-03 15:10 | Outpatient (AMB) | payer BC, SELFPAY ==
[2023-08-03 15:17] LABS: Prothrombin Time Whole Bld POC 35.8 sec (11.1-13.5)
--- NOTE | 2023-08-03 15:19 | MHC.OFFVISCO ---
Intake Intake Visit Reasons: Anticoagulation Allergies meperidine [From Demerol] Allergy (Severe, Verified 08/03/23 15:11) DIFF BREATHING clopidogrel [From Plavix] Allergy (Intermediate, Verified 08/03/23 15:11) EDEMA allopurinol Allergy (Intermediate, Uncoded 08/03/23 15:11) Hives contrast dye Adverse Reaction (Intermediate, Uncoded 08/03/23 15:11) Hives Medication List - Last Reconciled 08/03/23 by Kimi Gross RN amoxicillin 2,000 mg PO ONCE PRN aspirin (Adult Low Dose Aspirin) 81 mg PO DAILY fenofibrate micronized 134 mg PO DAILY hydrochlorothiazide 25 mg PO DAILY insulin glargine (Lantus Solostar U-100 Insulin) subcut every morning; metformin ER 1,500 mg PO DAILY metoprolol tartrate 100 mg PO BID metronidazole 1% topical pen needle, diabetic As directed rosuvastatin 40 mg PO DAILY semaglutide 0.5 mg subcut QWEEK sildenafil mg PO warfarin 4 mg See Protocol PO DAILY Nursing Note INR: 3.0 in therapeutic range 2.5-3.5 Medications and supplements reviewed, no changes No changes in health, diet, medications, or supplements, Denies any signs and symptoms of bleeding or bruising or clotting. 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
== END 2023-08-03 15:27 | disposition home or self-care (01) ==
LOC: HO.ACS 15:10
PROVIDERS: PCP Family Medicine; Visit Provider Internal Medicine
DX: Z79.01 Long term (current) use of anticoagulants (principal)

== ENCOUNTER → 2023-08-03 15:10 | Outpatient (BNVA) | payer BC, SELFPAY | PROVIDERS: PCP Family Medicine; Visit Provider Internal Medicine | DX: Z95.2 Presence of prosthetic heart valve (principal); Z51.81 Encounter for therapeutic drug level monitoring; Z79.01 Long term (current) use of anticoagulants | CPT/HCPCS: 85610; 99211 ==

== ENCOUNTER 2023-09-01 15:35 | Outpatient (AMB) | payer BC, SELFPAY ==
--- NOTE | 2023-09-01 15:45 | MHC.OFFVISCO ---
Intake Intake Visit Reasons: Anticoagulation Allergies meperidine [From Demerol] Allergy (Severe, Verified 09/01/23 15:36) DIFF BREATHING clopidogrel [From Plavix] Allergy (Intermediate, Verified 09/01/23 15:36) EDEMA allopurinol Allergy (Intermediate, Uncoded 08/03/23 15:11) Hives contrast dye Adverse Reaction (Intermediate, Uncoded 08/03/23 15:11) Hives Medication List - Last Reconciled 09/01/23 by Ruby iDck RN amoxicillin 2,000 mg PO ONCE PRN aspirin (Adult Low Dose Aspirin) 81 mg PO DAILY fenofibrate micronized 134 mg PO DAILY hydrochlorothiazide 25 mg PO DAILY insulin glargine (Lantus Solostar U-100 Insulin) subcut every morning; metformin ER 1,500 mg PO DAILY metoprolol tartrate 100 mg PO BID metronidazole 1% topical pen needle, diabetic As directed rosuvastatin 40 mg PO DAILY semaglutide 0.5 mg subcut QWEEK sildenafil mg PO warfarin 4 mg See Protocol PO DAILY Nursing Note PT.HAS BEEN TAKING X 4 DAILY FOR APPROX.4-5 DAYS NO CP,SOB,DIET CHANGES,FALLS OR SX OF BLEEDING. HOLD WARFARIN TODAY THEN RESUME USUAL DOSE AND FOLLOW-UP ON 09/06. GOOD UNDERSTANDING OF DOSING INSTR. 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
[2023-09-01 16:44] LABS: ~PT, ~INR - Anti Coag Clinic 4.4 (0.9-1.1)
== END 2023-09-01 15:48 | disposition home or self-care (01) ==
LOC: HO.ACS 15:35
PROVIDERS: PCP Family Medicine; Visit Provider Internal Medicine
DX: Z79.01 Long term (current) use of anticoagulants (principal)

== ENCOUNTER → 2023-09-01 15:35 | Outpatient (BNVA) | payer BC, SELFPAY | PROVIDERS: PCP Family Medicine; Visit Provider Internal Medicine | DX: Z95.2 Presence of prosthetic heart valve (principal); Z51.81 Encounter for therapeutic drug level monitoring; Z79.01 Long term (current) use of anticoagulants | CPT/HCPCS: 85610; 99211 ==

== ENCOUNTER 2023-09-07 15:05 | Outpatient (AMB) | payer BC, SELFPAY ==
--- NOTE | 2023-09-07 15:09 | MHC.OFFVISCO ---
Intake Intake Visit Reasons: Anticoagulation Allergies meperidine [From Demerol] Allergy (Severe, Verified 09/07/23 15:06) DIFF BREATHING clopidogrel [From Plavix] Allergy (Intermediate, Verified 09/07/23 15:06) EDEMA allopurinol Allergy (Intermediate, Uncoded 09/07/23 15:06) Hives contrast dye Adverse Reaction (Intermediate, Uncoded 09/07/23 15:06) Hives Nursing Note INR: 2.6- in therapeutic range of 2.5-3.5 Medications and supplements reviewed No changes in health, diet, medications, or supplements, Denies any signs and symptoms of bleeding or bruising or clotting. 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
[2023-09-07 15:10] LABS: Prothrombin Time Whole Bld POC 31.7 sec (11.1-13.5); ~PT, ~INR - Anti Coag Clinic 2.6 (0.9-1.1)
== END 2023-09-07 15:14 | disposition home or self-care (01) ==
LOC: HO.ACS 15:05
PROVIDERS: PCP Family Medicine; Visit Provider Internal Medicine
DX: Z79.01 Long term (current) use of anticoagulants (principal)

== ENCOUNTER → 2023-09-07 15:05 | Outpatient (BNVA) | payer BC, SELFPAY | PROVIDERS: PCP Family Medicine; Visit Provider Internal Medicine | DX: Z95.2 Presence of prosthetic heart valve (principal); Z51.81 Encounter for therapeutic drug level monitoring; Z79.01 Long term (current) use of anticoagulants | CPT/HCPCS: 85610; 99211 ==

== ENCOUNTER 2023-09-23 15:27 | Outpatient (AMB) | payer BC, SELFPAY ==
[2023-09-23 15:33] LABS: Prothrombin Time Whole Bld POC 37.7 sec (11.1-13.5); ~PT, ~INR - Anti Coag Clinic 3.1 (0.9-1.1)
--- NOTE | 2023-09-23 15:40 | MHC.OFFVISCO ---
Intake Intake Visit Reasons: Anticoagulation Allergies meperidine [From Demerol] Allergy (Severe, Verified 09/23/23 15:28) DIFF BREATHING clopidogrel [From Plavix] Allergy (Intermediate, Verified 09/23/23 15:28) EDEMA allopurinol Allergy (Intermediate, Uncoded 09/23/23 15:28) Hives contrast dye Adverse Reaction (Intermediate, Uncoded 09/23/23 15:28) Hives Medication List - Last Reconciled 09/23/23 by Marguerite Mcclelland RN amoxicillin 2,000 mg PO ONCE PRN aspirin (Adult Low Dose Aspirin) 81 mg PO DAILY fenofibrate micronized 134 mg PO DAILY hydrochlorothiazide 25 mg PO DAILY insulin glargine (Lantus Solostar U-100 Insulin) subcut every morning; metformin ER 1,500 mg PO DAILY metoprolol tartrate 100 mg PO BID metronidazole 1% topical pen needle, diabetic As directed rosuvastatin 40 mg PO DAILY semaglutide 0.5 mg subcut QWEEK sildenafil mg PO warfarin 4 mg See Protocol PO DAILY Nursing Note INR: 3.1 in therapeutic range Medications and supplements reviewed No changes in health, diet, medications, or supplements, Denies any signs and symptoms of bleeding or bruising or clotting. 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
== END 2023-09-23 15:43 | disposition home or self-care (01) ==
LOC: HO.ACS 15:27
PROVIDERS: PCP Family Medicine; Visit Provider Internal Medicine
DX: Z79.01 Long term (current) use of anticoagulants (principal)

== ENCOUNTER → 2023-09-23 15:27 | Outpatient (BNVA) | payer BC, SELFPAY | PROVIDERS: PCP Family Medicine; Visit Provider Internal Medicine | DX: Z95.2 Presence of prosthetic heart valve (principal); Z51.81 Encounter for therapeutic drug level monitoring; Z79.01 Long term (current) use of anticoagulants | CPT/HCPCS: 85610; 99211 ==

== ENCOUNTER 2023-10-19 14:23 | Outpatient (AMB) | payer BC, SELFPAY ==
[2023-10-19 14:40] LABS: Prothrombin Time Whole Bld POC 37.9 sec (11.1-13.5); ~PT, ~INR - Anti Coag Clinic 3.2 (0.9-1.1)
--- NOTE | 2023-10-19 14:42 | MHC.OFFVISCO ---
Intake Intake Visit Reasons: Anticoagulation Allergies meperidine [From Demerol] Allergy (Severe, Verified 10/19/23 14:34) DIFF BREATHING clopidogrel [From Plavix] Allergy (Intermediate, Verified 10/19/23 14:34) EDEMA allopurinol Allergy (Intermediate, Uncoded 10/19/23 14:34) Hives contrast dye Adverse Reaction (Intermediate, Uncoded 10/19/23 14:34) Hives Medication List - Last Reconciled 10/19/23 by Kimi Garcia RN amoxicillin 2,000 mg PO ONCE PRN aspirin (Adult Low Dose Aspirin) 81 mg PO DAILY fenofibrate micronized 134 mg PO DAILY hydrochlorothiazide 25 mg PO DAILY insulin glargine (Lantus Solostar U-100 Insulin) subcut every morning; metformin ER 1,500 mg PO DAILY metoprolol tartrate 100 mg PO BID metronidazole 1% topical pen needle, diabetic As directed rosuvastatin 40 mg PO DAILY semaglutide 0.5 mg subcut QWEEK sildenafil mg PO warfarin 4 mg See Protocol PO DAILY Nursing Note Amb to ACS feeling well Medications and supplements reviewed No changes in health, diet, medications, or supplements, Denies any signs and symptoms of bleeding or bruising or clotting. INR 3.2 in therapeutic range (2.5-3.5) Dose: continue same dosing 6mg x 3 days and 4mg x 4 days balance greens and reds in diet, be consistent F/U INR:3 weeks Patient verbalizes understanding of instructions given Questionnaires HAS-BLED Does the patient had uncontrolled Hypertension?: No Does the patient have renal disease?: No Does the patient have liver disease?: No Does the patient have a history of stroke?: No Has the patient had major bleeding or predisposition to bleeding?: Yes Does the patient have labile INRs?: No Is the patient over 65 years of age?: Yes Is the patient on medications that gives them a predisposition to bleeding?: Yes Does the patient use alcohol?: Yes HAS-BLED Score: 4 CHADSVASC Age: <65 Gender: Male Does the patient have a history of CHF?: No Does the patient have a history of Hypertension?: Yes Does the patient have a history of Stroke/TIA/Thromboembolism?: No Does the patient have a history of Vascular Disease (prior SC, PAD or aortic plaque)?: Yes Does the patient have a history of Diabetes?: Yes CHADS VACS Score: 3 Julieta Prediction Score Rsk VTE Active Cancer: No Previous VTE, excluding superficial vein thrombosis: No Reduced mobility: No Already known Thrombophilic Condition: Yes With-in last month Trauma and/or Surgery: No Elderly 70 year or older: No Heart and/or Respiratory Failure: No Acute Myocardial infarction and/or Ischemic Stroke: No Acute Infection and/or Rheumatologic Disorder: No Obesity (BMI 30 or greater): No Ongoing Hormonal Treatment: No Score: 3 Julieta Score less than 4; Low Risk of VTE Julieta Score 4 or greater; High Risk of VTE Coding Level of Care Code Est Patient Level 1 Diagnoses Current use of anticoagulant therapy Z79.01 Time Spent (min) 15 Assessment & Plan Assessment & Plan (1) Current use of anticoagulant therapy: Code(s): Z79.01 - [facility] (current) use of anticoagulants Category: Medical
== END 2023-10-19 14:50 | disposition home or self-care (01) ==
LOC: HO.ACS 14:23
PROVIDERS: PCP Family Medicine; Visit Provider Internal Medicine
DX: Z79.01 Long term (current) use of anticoagulants (principal)

== ENCOUNTER → 2023-10-19 14:23 | Outpatient (BNVA) | payer BC, SELFPAY | PROVIDERS: PCP Family Medicine; Visit Provider Internal Medicine | DX: Z95.2 Presence of prosthetic heart valve (principal); Z51.81 Encounter for therapeutic drug level monitoring; Z79.01 Long term (current) use of anticoagulants | CPT/HCPCS: 85610; 99211 ==

== ENCOUNTER 2023-11-09 15:22 | Outpatient (AMB) | payer BC, SELFPAY ==
[2023-11-09 15:37] LABS: Prothrombin Time Whole Bld POC 42.9 sec (11.1-13.5); ~PT, ~INR - Anti Coag Clinic 3.6 (0.9-1.1)
--- NOTE | 2023-11-09 15:41 | MHC.OFFVISCO ---
Intake Intake Visit Reasons: Anticoagulation Allergies meperidine [From Demerol] Allergy (Severe, Verified 11/09/23 15:23) DIFF BREATHING clopidogrel [From Plavix] Allergy (Intermediate, Verified 11/09/23 15:23) EDEMA allopurinol Allergy (Intermediate, Uncoded 11/09/23 15:23) Hives contrast dye Adverse Reaction (Intermediate, Uncoded 11/09/23 15:23) Hives Medication List - Last Reconciled 11/09/23 by Kimi Gross RN amoxicillin 2,000 mg PO ONCE PRN aspirin (Adult Low Dose Aspirin) 81 mg PO DAILY fenofibrate micronized 134 mg PO DAILY hydrochlorothiazide 25 mg PO DAILY insulin glargine (Lantus Solostar U-100 Insulin) subcut every morning; metformin ER 1,500 mg PO DAILY metoprolol tartrate 100 mg PO BID metronidazole 1% topical mupirocin 2% 1 appl topical TID pen needle, diabetic As directed rosuvastatin 40 mg PO DAILY semaglutide 0.5 mg subcut QWEEK sildenafil mg PO triamcinolone acetonide 0.1% appl topical warfarin 4 mg See Protocol PO DAILY Nursing Note INR: 3.6 out of therapeutic range of 2.5-3.5 Pt states has had cherries and rhubard recently Medications and supplements reviewed No changes in health, diet, medications, or supplements, Denies any signs and symptoms of bleeding or bruising or clotting. 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
== END 2023-11-09 15:44 | disposition home or self-care (01) ==
LOC: HO.ACS 15:22
PROVIDERS: PCP Family Medicine; Visit Provider Internal Medicine
DX: Z79.01 Long term (current) use of anticoagulants (principal)

== ENCOUNTER → 2023-11-09 15:22 | Outpatient (BNVA) | payer BC, SELFPAY | PROVIDERS: PCP Family Medicine; Visit Provider Internal Medicine | DX: Z95.2 Presence of prosthetic heart valve (principal); Z51.81 Encounter for therapeutic drug level monitoring; Z79.01 Long term (current) use of anticoagulants | CPT/HCPCS: 85610; 99211 ==

== ENCOUNTER 2023-12-07 15:36 | Outpatient (AMB) | payer BC, SELFPAY ==
[2023-12-07 15:42] LABS: Prothrombin Time Whole Bld POC 44.1 sec (11.1-13.5); ~PT, ~INR - Anti Coag Clinic 3.7 (0.9-1.1)
--- NOTE | 2023-12-07 15:47 | MHC.OFFVISCO ---
Intake Intake Visit Reasons: Anticoagulation Allergies meperidine [From Demerol] Allergy (Severe, Verified 12/07/23 15:37) DIFF BREATHING clopidogrel [From Plavix] Allergy (Intermediate, Verified 12/07/23 15:37) EDEMA allopurinol Allergy (Intermediate, Uncoded 12/07/23 15:37) Hives contrast dye Adverse Reaction (Intermediate, Uncoded 12/07/23 15:37) Hives Medication List - Last Reconciled 12/07/23 by Kimi Gross RN amoxicillin 2,000 mg PO ONCE PRN aspirin (Adult Low Dose Aspirin) 81 mg PO DAILY fenofibrate micronized 134 mg PO DAILY hydrochlorothiazide 25 mg PO DAILY insulin glargine (Lantus Solostar U-100 Insulin) subcut every morning; metformin ER 1,500 mg PO DAILY metoprolol tartrate 100 mg PO BID metronidazole 1% topical mupirocin 2% 1 appl topical TID pen needle, diabetic As directed rosuvastatin 40 mg PO DAILY semaglutide 0.5 mg subcut QWEEK sildenafil mg PO triamcinolone acetonide 0.1% appl topical warfarin 4 mg See Protocol PO DAILY Nursing Note INR 3.7?out of therapeutic range of 2.5-3.5 Medications and supplements reviewed Patient status: well Medications or supplements: no changes Diet: usual diet for pt Denies any signs and symptoms of bleeding or clotting or unusual bruising Bleeding, bruising, clotting discussed Nutritional guidance given: to have a serving of greens today Dose: usual dose of 4mg X 4 days and 6mg X 3 days F/U INR Date : 4 weeks?? Patient verbalizing understanding of instructions given. Coding Level of Care Code Est Patient Level 1 Diagnoses Current use of anticoagulant therapy Z79.01 Assessment & Plan Assessment & Plan (1) Current use of anticoagulant therapy: Code(s): Z79.01 - [facility] (current) use of anticoagulants Category: Medical
== END 2023-12-07 15:49 | disposition home or self-care (01) ==
LOC: HO.ACS 15:36
PROVIDERS: PCP Family Medicine; Visit Provider Internal Medicine
DX: Z79.01 Long term (current) use of anticoagulants (principal)

== ENCOUNTER → 2023-12-07 15:36 | Outpatient (BNVA) | payer BC, SELFPAY | PROVIDERS: PCP Family Medicine; Visit Provider Internal Medicine | DX: Z95.2 Presence of prosthetic heart valve (principal); Z51.81 Encounter for therapeutic drug level monitoring; Z79.01 Long term (current) use of anticoagulants | CPT/HCPCS: 85610; 99211 ==

== ENCOUNTER 2024-01-05 13:42 | Outpatient (AMB) | payer BC, SELFPAY ==
[2024-01-05 13:55] LABS: Prothrombin Time Whole Bld POC 41.8 sec (11.1-13.5); ~PT, ~INR - Anti Coag Clinic 3.5 (0.9-1.1)
--- NOTE | 2024-01-05 13:59 | MHC.OFFVISCO ---
Intake Intake Visit Reasons: Anticoagulation Allergies meperidine [From Demerol] Allergy (Severe, Verified 01/05/24 13:50) DIFF BREATHING clopidogrel [From Plavix] Allergy (Intermediate, Verified 01/05/24 13:50) EDEMA allopurinol Allergy (Intermediate, Uncoded 12/07/23 15:37) Hives contrast dye Adverse Reaction (Intermediate, Uncoded 12/07/23 15:37) Hives Medication List - Last Reconciled 01/05/24 by Ruby Dick RN amoxicillin 2,000 mg PO ONCE PRN aspirin (Adult Low Dose Aspirin) 81 mg PO DAILY fenofibrate micronized 134 mg PO DAILY hydrochlorothiazide 25 mg PO DAILY insulin glargine (Lantus Solostar U-100 Insulin) subcut every morning; metformin ER 1,500 mg PO DAILY metoprolol tartrate 100 mg PO BID metronidazole 1% topical mupirocin 2% 1 appl topical TID pen needle, diabetic As directed rosuvastatin 40 mg PO DAILY semaglutide 0.5 mg subcut QWEEK sildenafil mg PO triamcinolone acetonide 0.1% appl topical warfarin 4 mg See Protocol PO DAILY Nursing Note NO CP,SOB,DIET/MED CHANGES,FALLS OR SX OF BLEEDING. CONTINUE PRESENT DOSE AND FOLLOW-UP IN 4 WEEKS. GOOD UNDERSTANDING OF DOSING INSTR. 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
== END 2024-01-05 14:00 | disposition home or self-care (01) ==
LOC: HO.ACS 13:42
PROVIDERS: PCP Family Medicine; Visit Provider Internal Medicine
DX: Z79.01 Long term (current) use of anticoagulants (principal)

== ENCOUNTER → 2024-01-05 13:42 | Outpatient (BNVA) | payer BC, SELFPAY | PROVIDERS: PCP Family Medicine; Visit Provider Internal Medicine | DX: Z95.2 Presence of prosthetic heart valve (principal); Z51.81 Encounter for therapeutic drug level monitoring; Z79.01 Long term (current) use of anticoagulants | CPT/HCPCS: 85610; 99211 ==

== ENCOUNTER 2024-02-01 15:32 | Outpatient (AMB) | payer BC, SELFPAY ==
--- NOTE | 2024-02-01 15:44 | MHC.OFFVISCO ---
Intake Intake Visit Reasons: Anticoagulation Allergies meperidine [From Demerol] Allergy (Severe, Verified 02/01/24 15:33) DIFF BREATHING clopidogrel [From Plavix] Allergy (Intermediate, Verified 02/01/24 15:33) EDEMA allopurinol Allergy (Intermediate, Uncoded 02/01/24 15:33) Hives contrast dye Adverse Reaction (Intermediate, Uncoded 02/01/24 15:33) Hives Medication List - Last Reconciled 02/01/24 by Kimi Gross RN amoxicillin 2,000 mg PO ONCE PRN aspirin (Adult Low Dose Aspirin) 81 mg PO DAILY fenofibrate micronized 134 mg PO DAILY hydrochlorothiazide 25 mg PO DAILY insulin glargine (Lantus Solostar U-100 Insulin) subcut every morning; metformin ER 1,500 mg PO DAILY metoprolol tartrate 100 mg PO BID metronidazole 1% topical mupirocin 2% 1 appl topical TID pen needle, diabetic As directed rosuvastatin 40 mg PO DAILY semaglutide 0.5 mg subcut QWEEK sildenafil mg PO triamcinolone acetonide 0.1% appl topical warfarin 4 mg See Protocol PO DAILY Nursing Note INR 3.7?out of therapeutic range of 2.5-3.5 Medications and supplements reviewed Patient status: well Medications or supplements: no changes Diet: usual diet for pt Denies any signs and symptoms of bleeding or clotting or unusual bruising Bleeding, bruising, clotting discussed Nutritional guidance given: to have a serving of greens today Dose: continue same dose of 4mg X 4 days and 6mg X 3 days F/U INR Date : 4 weeks?? Patient verbalizing understanding of instructions given. Coding Level of Care Code Est Patient Level 1 Diagnoses Current use of anticoagulant therapy Z79.01 Results AMB INR Fingerstick AMB INR Fingerstick 3.7 Last Edit by Kimi Gross RN on 02/01/24 15:40 interface delay Assessment & Plan Assessment & Plan (1) Current use of anticoagulant therapy: Code(s): Z79.01 - [facility] (current) use of anticoagulants Category: Medical
[2024-02-01 15:46] LABS: Prothrombin Time Whole Bld POC 43.9 sec (11.1-13.5); ~PT, ~INR - Anti Coag Clinic 3.7 (0.9-1.1)
== END 2024-02-01 15:46 | disposition home or self-care (01) ==
LOC: HO.ACS 15:32
PROVIDERS: PCP Family Medicine; Visit Provider Internal Medicine
DX: Z79.01 Long term (current) use of anticoagulants (principal)

== ENCOUNTER → 2024-02-01 15:32 | Outpatient (BNVA) | payer BC, SELFPAY | PROVIDERS: PCP Family Medicine; Visit Provider Internal Medicine | DX: Z95.2 Presence of prosthetic heart valve (principal); Z79.01 Long term (current) use of anticoagulants; Z51.81 Encounter for therapeutic drug level monitoring | CPT/HCPCS: 85610; 99211 ==

== ENCOUNTER 2024-02-28 14:47 | Outpatient (AMB) | payer BC, SELFPAY ==
--- NOTE | 2024-02-28 15:04 | MHC.OFFVISCO ---
Intake Intake Visit Reasons: Anticoagulation Allergies meperidine [From Demerol] Allergy (Severe, Verified 02/28/24 14:52) DIFF BREATHING clopidogrel [From Plavix] Allergy (Intermediate, Verified 02/28/24 14:52) EDEMA allopurinol Allergy (Intermediate, Uncoded 02/28/24 14:52) Hives contrast dye Adverse Reaction (Intermediate, Uncoded 02/28/24 14:52) Hives Medication List - Last Reconciled 02/28/24 by Kimi Gross RN amoxicillin 2,000 mg PO ONCE PRN aspirin (Adult Low Dose Aspirin) 81 mg PO DAILY fenofibrate micronized 134 mg PO DAILY hydrochlorothiazide 25 mg PO DAILY insulin glargine (Lantus Solostar U-100 Insulin) subcut every morning; metformin ER 1,500 mg PO DAILY metoprolol tartrate 100 mg PO BID metronidazole 1% topical mupirocin 2% 1 appl topical TID pen needle, diabetic As directed rosuvastatin 40 mg PO DAILY semaglutide 0.5 mg subcut QWEEK sildenafil mg PO triamcinolone acetonide 0.1% appl topical warfarin 4 mg See Protocol PO DAILY Nursing Note INR: 2.5 in therapeutic range of 2.5-3.5 Pt states he missed his dose yesterday. Medications and supplements reviewed No changes in health, diet, medications, or supplements, Denies any signs and symptoms of bleeding or bruising or clotting. Bleeding, bruising, clotting discussed Nutritional guidance given to avoid greens today and to have a serving of foods from the list that raises the INR today. 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
[2024-02-28 15:05] LABS: Prothrombin Time Whole Bld POC 30.4 sec (11.1-13.5); ~PT, ~INR - Anti Coag Clinic 2.5 (0.9-1.1)
== END 2024-02-28 15:08 | disposition home or self-care (01) ==
LOC: HO.ACS 14:47
PROVIDERS: PCP Family Medicine; Visit Provider Internal Medicine
DX: Z79.01 Long term (current) use of anticoagulants (principal)

== ENCOUNTER → 2024-02-28 14:47 | Outpatient (BNVA) | payer BC, SELFPAY | PROVIDERS: PCP Family Medicine; Visit Provider Internal Medicine | DX: Z95.2 Presence of prosthetic heart valve (principal); Z79.01 Long term (current) use of anticoagulants; Z51.81 Encounter for therapeutic drug level monitoring | CPT/HCPCS: 85610; 99211 ==

== ENCOUNTER 2024-03-29 15:37 | Outpatient (AMB) | payer BC, SELFPAY ==
--- NOTE | 2024-03-29 15:50 | MHC.OFFVISCO ---
Intake Intake Visit Reasons: Anticoagulation Allergies meperidine [From Demerol] Allergy (Severe, Verified 03/29/24 15:37) DIFF BREATHING clopidogrel [From Plavix] Allergy (Intermediate, Verified 03/29/24 15:37) EDEMA allopurinol Allergy (Intermediate, Uncoded 02/28/24 14:52) Hives contrast dye Adverse Reaction (Intermediate, Uncoded 02/28/24 14:52) Hives Medication List - Last Reconciled 03/29/24 by Ruby Dick RN amoxicillin 2,000 mg PO ONCE PRN aspirin (Adult Low Dose Aspirin) 81 mg PO DAILY fenofibrate micronized 134 mg PO DAILY hydrochlorothiazide 25 mg PO DAILY insulin glargine (Lantus Solostar U-100 Insulin) subcut every morning; metformin ER 1,500 mg PO DAILY metoprolol tartrate 100 mg PO BID metronidazole 1% topical mupirocin 2% 1 appl topical TID pen needle, diabetic As directed rosuvastatin 40 mg PO DAILY semaglutide 0.5 mg subcut QWEEK sildenafil mg PO triamcinolone acetonide 0.1% appl topical warfarin 4 mg See Protocol PO DAILY Nursing Note NO CP,SOB,DIET/MED CHANGES,FALLS OR SX OF BLEEDING. REDUCE DOSE SLIGHTLY TODAY THEN RESUME USUAL DOSING AND FOLLOW-UP IN 5 WEEKS. DARK [place] TODAY GOOD UNDERSTANDING OF DOSING INSTR. 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
[2024-03-29 15:51] LABS: Prothrombin Time Whole Bld POC 45.7 sec (11.1-13.5); ~PT, ~INR - Anti Coag Clinic 3.8 (0.9-1.1)
== END 2024-03-29 15:53 | disposition home or self-care (01) ==
LOC: HO.ACS 15:37
PROVIDERS: PCP Family Medicine; Visit Provider Internal Medicine
DX: Z79.01 Long term (current) use of anticoagulants (principal)

== ENCOUNTER → 2024-03-29 15:37 | Outpatient (BNVA) | payer BC, SELFPAY | PROVIDERS: PCP Family Medicine; Visit Provider Internal Medicine | DX: Z95.2 Presence of prosthetic heart valve (principal); Z79.01 Long term (current) use of anticoagulants; Z51.81 Encounter for therapeutic drug level monitoring | CPT/HCPCS: 85610; 99211 ==

== ENCOUNTER 2024-05-02 15:28 | Outpatient (AMB) | payer BC, SELFPAY ==
[2024-05-02 15:33] LABS: Prothrombin Time Whole Bld POC 44.9 sec (11.1-13.5); ~PT, ~INR - Anti Coag Clinic 3.7 (0.9-1.1)
--- NOTE | 2024-05-02 15:40 | MHC.OFFVISCO ---
Intake Intake Visit Reasons: Anticoagulation Allergies meperidine [From Demerol] Allergy (Severe, Verified 05/02/24 15:28) DIFF BREATHING clopidogrel [From Plavix] Allergy (Intermediate, Verified 05/02/24 15:28) EDEMA allopurinol Allergy (Intermediate, Uncoded 05/02/24 15:28) Hives contrast dye Adverse Reaction (Intermediate, Uncoded 05/02/24 15:28) Hives Medication List - Last Reconciled 05/02/24 by Kimi Gross RN amoxicillin 2,000 mg PO ONCE PRN aspirin (Adult Low Dose Aspirin) 81 mg PO DAILY fenofibrate micronized 134 mg PO DAILY hydrochlorothiazide 25 mg PO DAILY insulin glargine (Lantus Solostar U-100 Insulin) subcut every morning; metformin ER 1,500 mg PO DAILY metoprolol tartrate 100 mg PO BID metronidazole 1% topical mupirocin 2% 1 appl topical TID pen needle, diabetic As directed rosuvastatin 40 mg PO DAILY semaglutide 0.5 mg subcut QWEEK sildenafil mg PO triamcinolone acetonide 0.1% appl topical warfarin 4 mg See Protocol PO DAILY Nursing Note INR: 3.7 in therapeutic range of 2.5-3.5 Medications and supplements reviewed No changes in health, diet, medications, or supplements, Denies any signs and symptoms of bleeding or bruising or clotting. 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
--- OUTSIDE RECORDS SUMMARY | 2024-05-09 15:18 | XMS_ITS | Continuity of Care Document ---
Author Organization [facility] Address [address] [place] [address]- Care Team Providers Care [employer] Custodian Name Role Phone Pito Maya DO Primary Care Physician [place] [facility] [place]): 03/27/24 - 04/26/24 [facility] [address] [place] [address]- Encounter Type: Triage Allergies, Adverse Reactions, Alerts Substance Criticality Severity Reaction Reaction Severity Status allopurinol hives Active contrast media (iodine-based) Active Plavix hives Active Demerol HCl stops breathing Ac tive Lipitor hives Active Contrast Dye Unknown Active Immunizations Given and Recorded Vaccine Date Status Refusal Reason SARS-CoV-2(COVID-19)mRNA-LNP vac([id number]) 04/01/23 Recorded [id number] 12y+ bivalent booster vax 04/17/22 Recorded tetanus/diphtheria/pertussis, acel(Tdap) 03/01/22 Recorded tetanus/diphtheria/pertussis, acel(Tdap) 05/28/15 Given influenza virus vaccine, inactivated 02/17/22 Kj rded influenza virus vaccine, inactivated 03/06/21 Give n influenza virus vaccine, inactivated 01/22/20 Kj rded influenza virus vaccine, inactivated 1 07/10/19 Gi frandy influenza virus vaccine, inactivated 2 04/01/17 Re corded influenza virus vaccine, inactivated 03/03/16 Give n SARS-CoV-2 (COVID-19) mRNA BNT-162b2 vac 3 04/03/21 Given SARS-CoV-2 (COVID-19) mRNA-1273 vaccine 08/24/20 G iven SARS-CoV-2 (COVID-19) mRNA-1273 vaccine 07/27/20 G iven pneumococcal 23-valent vaccine 4 10/26/18 Given 1Result Comment: [facility]#[id number] 2Result Comment: [04/08/2017] Afluria [id number] [facility] 3Result Comment: [id number] 4Result Comment: [facility]: [id number] Medications acetaminophen 325 mg oral tablet 650 mg, By Mouth, Every 4 hours, PRN, greater than 101F or Mild Pain, Refills 0, Maintenance, Temperature, 02/05/16 2:00:35 PM EDT Start Date: 02/05/16 Status: Ordered Repeat number: 1 amoxicillin 500 mg oral tablet 4 tablet = 2,000 mg, By Mouth, Once, 4 tabs 1 hour prior to dental procedure, # 4 tablet, 2 Refills, Soft Stop, 04/28/23 11:22:00 AM EST, [facility], 172.7, cm, 04/27/23 14:30:00 EST, Height, 88.5, kg, 09/02/22 20:03:00 EDT, Dry Weight Start Date: 04/28/23 Status: Ordered Quantity: 4.0 Unit: tablet Repeat number: 3 aspirin 81 mg oral tablet 81 mg, 1, tablet, By Mouth, Daily, 0 Refills Start Date: 05/27/07 Status: Ordered Repeat number: 1 Crestor 40 mg oral tablet 1 tablet = 40 mg, By Mouth, Daily, # 90 tablet, 3 Refills, Maintenance, 09/29/23 10:07:00 AM EDT, Tablet, [facility], Please ask patient to call office to schedule a medication follow appt elenita, 172.7, cm, 04/27/23 14:30:00 EST, Height, 88.5, kg, 09/02/22 20:03:00 EDT, Dry Weight Start Date: 09/29/23 Stop Date: 09/23/24 Status: Ordered Quantity: 90.0 Unit: tablet Repeat number: 4 fenofibrate 134 mg oral capsule 1 capsule = 134 mg, By Mouth, Daily, # 90 capsule, 3 Refills, Maintenance, 09/29/23 10:08:00 AM EDT, Capsule, [facility], Please ask patient to call office to schedule a medication follow appt elenita, 172.7, cm, 04/27/23 14:30:00 EST, Height, 88.5, kg, 09/02/22 20:03:00 EDT, Dry Weight Start Date: 09/29/23 Stop Date: 09/23/24 Status: Ordered Quantity: 90.0 Unit: capsule Repeat number: 4 Freestyle Lite Monitor See Instructions, # 1 each, Refills 0, Tot. Refills 0, Maintenance, Test blood sugars 3 times a day, 04/17/19 9:24:03 AM EST, Compound Start Date: 04/17/19 Status: Ordered Quantity: 1.0 Unit: each Repeat number: 1 Indication: Type 2 diabetes mellitus without complications Freestyle Lite Test Strips See Instructions, # 100 each, Refills 0, Tot. Refills 0, Maintenance, Test blood sugars 3 times a day, 04/17/19 9:25:15 AM EST, Compound Start Date: 04/17/19 Status: Ordered Quantity: 100.0 Unit: each Repeat number: 1 Indication: Type 2 diabetes mellitus without complications hydrochlorothiazide 25 mg oral tablet 25 mg, 1, tablet, By Mouth, Daily, Take with Food, # 90 tablet, Refills 3, Tot. Refills 3, Maintenance, 10/05/23 3:47:00 PM EDT, Route to Pharmacy Electronically, [facility], 172.7, cm, 10/05/23 15:37:00 EDT, Height, 88.5, kg, 09/02/22 20:03:00 EDT, Dry Weight Start Date: 10/05/23 Stop Date: 09/29/24 Status: Ordered Quantity: 90.0 Unit: tablet Repeat number: 4 Lantus Solostar Pen 100 units/mL subcutaneous solution See Instructions, INJECT 30 UNITS UNDER THE SKIN EVERY MORNING, # 15 mL, 3 Refills, Maintenance, 10/11/23 2:00:00 PM EDT, [facility], 172.7, cm, 10/05/23 15:37:00 EDT, Height, 88.5, kg, 09/02/22 20:03:00 EDT, Dry Weight Start Date: 10/11/23 Status: Ordered Quantity: 15.0 Unit: mL Repeat number: 4 metFORMIN 750 mg oral tablet, extended release 2 tablet = 1,500 mg, By Mouth, Daily, Take with food, # 180 tablet, 1 Refills, Maintenance, 10/05/23 3:47:00 PM EDT, [facility], 172.7, cm, 10/05/23 15:37:00 EDT, Height, 88.5, kg, 09/02/22 20:03:00 EDT, Dry Weight Start Date: 10/05/23 Stop Date: 04/02/24 Status: Ordered Quantity: 180.0 Unit: tablet Repeat number: 2 Metoprolol Tartrate 100 mg oral tablet 1 tablet, By Mouth, 2 times a day, # 180 tablet, 1 Refills, Maintenance, 10/05/23 3:47:00 PM EDT, [facility], 172.7, cm, 10/05/23 15:37:00 EDT, Height, 88.5, kg, 09/02/22 20:03:00 EDT, Dry Weight Start Date: 10/05/23 Stop Date: 04/02/24 Status: Ordered Quantity: 180.0 Unit: tablet Repeat number: 2 metroNIDAZOLE 1% topical gel 1 application, Topically, Daily, apply a thin film to affected area after washing, # 60 Gm, 5 Refills, Maintenance, 12/11/20 11:49:00 AM EDT, Gel, [facility], Partial fill upon patient request if the prescription is for a schedule II opioid drug., 1 application Topically Daily,Instr:applya thin film to affected area after washing, 175.26, cm, 11/28/20 15:48:00 EDT, Height, 103.7, kg, 02/06/19 12:38:00 EDT, Dry Weight Start Date: 12/11/20 Status: Ordered Quantity: 60.0 Unit: g Repeat number: 6 Indication: Rosacea, unspecified mupirocin 2% topical cream 1 application, Topically, 3 times a day, # 15 Gm, 0 Refills, Acute 05/31/25 12:00:00 AM EST, 10/05/23 3:44:00 PM EDT, Cream, [facility], Partial fill upon patient request if the prescription is for a schedule II opioid drug., 1 application Topically 3 times a day, 172.7, cm, 10/05/23 15:37:00 EDT, Height, 88.5, kg, 09/02/22 20:03:00 EDT, Dry Weight Start Date: 10/05/23 Stop Date: 05/31/25 Status: Ordered Quantity: 15.0 Unit: g Repeat number: 1 Indication: Encounter for general adult medical examination without abnormal findings One Touch Delica Lancets See Instructions, # 100 each, Refills 3, Tot. Refills 3, Maintenance, 1 box = 100 lancets Use to test blood sugar 3 x day DX 250.0, 07/14/19 3:49:00 PM EST, Compound, 175.26, cm, 07/10/19 15:39:00 EST, Height, 103.7, kg, 02/06/19 12:38:00 EDT, Dry Weight Start Date: 07/14/19 Status: Ordered Quantity: 100.0 Unit: each Repeat number: 4 One Touch Ultra 2 Glucose Meter See Instructions, # 1 kit, Maintenance, to be used to test blood sugars 3x daily DX 250.0, :11:51 PM EST, Compound Start Date: 04/18/19 Status: Ordered Quantity: 1.0 Unit: kit Repeat number: 1 One Touch Ultra Test Strips See Instructions, # 200 each, Refills 5, Tot. Refills 5, Maintenance, TEST BLOOD SUGARS 3 X DAILY DIRECTED for Type 2 Diabetes MellituS, 04/18/19 3:11:04 PM EST, Compound Start Date: 04/18/19 Stop Date: 10/15/19 Status: Ordered Quantity: 200.0 Unit: each Repeat number: 6 Ozempic 2 mg/3 mL (0.25 mg or 0.5 mg dose) subcutaneous solution See Instructions, INJECT 0.5MG SUBCUTANEOUSLY ONCE A WEEK, # 90 each, 1 Refills, Maintenance, 10/05/23 3:47:00 PM EDT, [facility], 172.7, cm, 10/05/23 15:37:00 EDT, Height, 88.5, kg, 09/02/22 20:03:00 EDT, Dry Weight Start Date: 10/05/23 Status: Ordered Quantity: 90.0 Unit: each Repeat number: 2 Pen [place], 32 G x 4 mm BD Ultra Fine III See Instructions, # 100 each, Refills 3, Tot. Refills 3, Maintenance, for flex pen needles Use as directed with flex pen Dx: E11.9, 08/19/23 7:48:00 AM EDT, Dx: DM type 2 ICD10: E11.9, Compound, 172.7, cm, 04/27/23 14:30:00 EST, Height, 88.5, kg, 09/02/22 20:03:00 EDT, Dry Weight Start Date: 08/19/23 Status: Ordered Quantity: 100.0 Unit: each Repeat number: 4 Indication: Type 2 diabetes mellitus without complications warfarin 4 mg oral tablet See Instructions, TAKE 2 TABLETS BY MOUTH ONCE DAILY DIRECTED BY [facility], # 180 tablet, 3 Refills, 06/21/23 9:10:00 AM EST, [facility], 172.7, cm, 04/27/23 14:30:00 EST, Height, 88.5, kg, 09/02/22 20:03:00 EDT, Dry Weight Start Date: 06/21/23 Status: Ordered Quantity: 180.0 Unit: tablet Repeat number: 4 Problem List Condition Confirmation Course Effective Dates Status Health Status Informant Anticoagulation goal of INR 2.5 to 3.5- due to mechanical Aortic valve- managed by [facility] 1, 2 Confirmed Active Carpal tunnel syndrome, bilateral Confirmed Active Cavernoma- 7mm located in the [place], seen by neurovascular, 2022, will see neuro surg. Confirmed Active CKD stage 3 secondary to diabetes Confirmed Active Coronary angioplasty Confirmed Active Coronary artery disease Confirmed Active Diabetes mellitus, with long-term current use of insulin Confirmed Active Diplopia- dx with cavernoma of [place] 2022, seen by neurovascular- pending neurosurg Confirmed Active Gout Confirmed Active S/P AVR (aortic valve replacement) Confirmed Active S/P CABG x 3-----2013 3 Confirmed Active Mechanical heart valve present- Aortic 4 Confirmed Active Hypercholesterolemia Confirmed Active Hypertension Confirmed Active Hypomagnesemia Confirmed Active Long-term (current) use of anticoagulants- due to mechanical AVR, followed by [facility] 5 Confirmed Active Mitral valve regurgitation Confirmed 03/25/22 Active Obese class I Confirmed Active Health care maintenance Confirmed Active Persistent proteinuria associated with type 2 diabetes mellitus Confirmed 06/20/13 Active Rosacea Confirmed Active Trigger finger of right hand Confirmed Active Vitamin D deficiency Confirmed Active 1managed by [place] [facility] 2goal of INR 2.5 to 3.5- due to mechanical valve [id number] 4Aortic 5due to mechanical AVR, followed by [place] [facility] Social History Social History Type Response Tobacco Use: Occasional ciga r special occasion. Type: Cigars. Sex Sex Representation Male (finding) Patient Care team information Care Team Personnel Name: Mary Pena RN Position: [facility] RN Member Role: Primary Care Nurse Name: Kandi Samson RN Position: [facility] RN Member Role: Primary Care Nurse Name: Caitlin Locke RN Position: [facility] RN Member Role: Primary Care Nurse Name: Pretty Street MA Position: [facility] JOSSELYN ROSE Member Role: [employer] Consulting Physician Name: Pito Maya DO Position: [facility] Physician - Primary Care Member Role: PCP Address: [address] [place] [address] Telecom: Name: Nelsy Gan RN Position: [facility] RN Member Role: Primary Care Nurse Care Team Related Persons Name: WELLINGTON GREEN Name: AGUSTIN GREEN Insurance Providers Guarantor name: EDDIE GILBERT Health Plan Information #: 1 Payer: [employer] Member Number: NA Policy Number: NA Group Number: NA
--- OUTSIDE RECORDS SUMMARY | 2024-05-09 15:18 | XMS_ITS | Continuity of Care Document ---
Author Organization [facility] Address [address] [place] [address]- Care Team Providers Care Shrimp Header Name Role Phone Pito Maya DO Primary Care Physician Encounter [facility] ACCT R [id number] Date(s): 04/10/24 - 04/17/24 [facility] [address] [place] [address]- Encounter Diagnosis Trigger finger of right hand(Discharge Diagnosis) - 04/10/24 CKD stage 3 secondary to diabetes(Discharge Diagnosis) - 04/10/24 Diabetes mellitus, with long-term current use of insulin(Discharge Diagnosis) - 04/10/24 Attending Physician: Pito Maya DO Encounter Type: Office Visit Allergies, Adverse Reactions, Alerts Substance Criticality Severity Reaction Reaction Severity Status allopurinol hives Active contrast media (iodine-based) Active Plavix hives Active Demerol HCl stops breathing Ac tive Lipitor hives Active Contrast Dye Unknown Active Immunizations Given and Recorded Vaccine Date Status Refusal Reason SARS-CoV-2(COVID-19)mRNA-LNP vac([id number]) 04/01/23 Recorded [id number] 12y+ bivalent booster vax 04/17/22 Recorded tetanus/diphtheria/pertussis, [...] 23-valent vaccine 4 10/26/18 Given 1Result Comment: [facility]#[id number] 2Result Comment: [04/08/2017] [facility] [id number] Comment: [id number] 4Result Comment: [facility]: [id number] Medications acetaminophen 325 mg oral tablet 650 [...] Refills, Soft Stop, 04/28/23 11:22:00 AM EST, [facility], 172.7, cm, 04/27/23 14:30:00 EST, [...] Refills, Maintenance, 09/29/23 10:07:00 AM EDT, Tablet, [facility], Please ask patient to call [...] Refills, Maintenance, 09/29/23 10:08:00 AM EDT, Capsule, [facility], Please ask patient to call [...] 3:47:00 PM EDT, Route to Pharmacy Electronically, [facility], 172.7, cm, 10/05/23 15:37:00 EDT, Height, 88.5, kg, 09/02/22 20:03:00 EDT, Dry Weight Start Date: 10/05/23 Stop Date: 09/29/24 Status: Ordered Quantity: 90.0 Unit: tablet Repeat number: 4 Lantus Solostar Pen 100 units/mL subcutaneous solution See Instructions, INJECT 30 UNITS UNDER THE SKIN EVERY MORNING, # 15 mL, 3 Refills, Maintenance, 10/11/23 2:00:00 PM EDT, [facility], 172.7, cm, 10/05/23 15:37:00 EDT, Height, 88.5, kg, 09/02/22 20:03:00 EDT, Dry Weight Start Date: 10/11/23 Status: Ordered Quantity: 15.0 Unit: mL Repeat number: 4 metFORMIN 750 mg oral tablet, extended release 2 tablet = 1,500 mg, By Mouth, Daily, Take with food, # 180 tablet, 1 Refills, Maintenance, 10/05/23 3:47:00 PM EDT, [facility], 172.7, cm, 10/05/23 15:37:00 EDT, Height, 88.5, kg, 09/02/22 20:03:00 EDT, Dry Weight Start Date: 10/05/23 Stop Date: 04/02/24 Status: Ordered Quantity: 180.0 Unit: tablet Repeat number: 2 Metoprolol Tartrate 100 mg oral tablet 1 tablet, By Mouth, 2 times a day, # 180 tablet, 1 Refills, Maintenance, 10/05/23 3:47:00 PM EDT, [facility], 172.7, cm, 10/05/23 15:37:00 EDT, Height, 88.5, kg, 09/02/22 20:03:00 EDT, Dry Weight Start Date: 10/05/23 Stop Date: 04/02/24 Status: Ordered Quantity: 180.0 Unit: tablet Repeat number: 2 metroNIDAZOLE 1% topical gel 1 application, Topically, Daily, apply a thin film to affected area after washing, # 60 Gm, 5 Refills, Maintenance, 12/11/20 11:49:00 AM EDT, Gel, [facility], Partial fill upon patient request [...] AM EST, 10/05/23 3:44:00 PM EDT, Cream, [facility], Partial fill upon patient request [...] test blood sugars 3x daily DX 250.0, 193:11:51 PM EST, Compound Start Date: 04/18/19 Status: [...] 1 Refills, Maintenance, 10/05/23 3:47:00 PM EDT, [facility], 172.7, cm, 10/05/23 15:37:00 EDT, Height, 88.5, kg, 09/02/22 20:03:00 EDT, Dry Weight Start Date: 10/05/23 Status: Ordered Quantity: 90.0 Unit: each Repeat number: 2 Pen Celina, 32 G x 4 mm BD Ultra [...] tablet, 3 Refills, 06/21/23 9:10:00 AM EST, [facility], 172.7, cm, 04/27/23 14:30:00 EST, Height, 88.5, kg, 09/02/22 20:03:00 EDT, Dry Weight Start Date: 06/21/23 Status: Ordered Quantity: 180.0 Unit: tablet Repeat number: 4 Problem List Condition Confirmation Course Effective Dates Status Health Status Informant Anticoagulation goal of INR 2.5 to 3.5- due to mechanical Aortic valve- managed by [facility] clinic 1, 2 Confirmed Active [...] anticoagulants- due to mechanical AVR, followed by [facility] 5 Confirmed Active Mitral valve regurgitation Confirmed 03/25/22 Active Obese class I Confirmed Active Health care maintenance Confirmed Active Persistent proteinuria associated with type 2 diabetes mellitus Confirmed 06/20/13 Active Rosacea Confirmed Active Trigger finger of right hand Confirmed Active Vitamin D deficiency Confirmed Active 1managed by [facility] clinic 2goal of INR 2.5 to 3.5- due to mechanical valve [id number] 4Aortic 5due to mechanical AVR, followed by [facility] Diagnosis Diagnosis Type Effective Dates Health Status Cl inical Service Informant Trigger finger of right hand Discharge Diagnosis 04/10/24 CKD stage 3 secondary to diabetes Discharge Diagnosis 04/10/24 Diabetes mellitus, with long-term current use of insulin Discharge Diagnosis 04/10/24 Vital Signs Most recent to oldest [Reference Range]: 1 Height 172.7 cm (04/10/24 2:44 PM) Weight 95.6 kg (04/10/24 2:44 PM) Oxygen Saturation [94-100 %] 96 % (04/10/24 2:44 PM) Pulse Rate [55-90 bpm] 77 bpm (04/10/24 2:44 PM) Body Mass Index [18.5-24.99 kg/m2] 32.05 kg/m2 *>HHI* (04/10/24 2:44 PM) Blood Pressure [90-138/55-84 mm Hg] 144/ 64mm Hg *H* (04/10/24 2:44 PM) Blood pressure sites Arm, left (04/10/24 2:44 PM) Weight Obtained Via Standing scale (04/10/24 2:44 PM) Social History Social History Type Response Tobacco Use: Occasional ciga r special occasion. Type: Cigars. Sex Sex Representation Male (finding) Note * Alyssa Hammer: PERFORM Event Display: Patient Education/Instruction Authored Date: Ambulatory Adult Visit Summary [address] [id number] Name: EDDIE OFELIA : 1960?? Visit: 04/10/2024 14:35?? Ambulatory Visit Instructions ?? Your Care Team Primary Care Provider Pito Maya DO? This Visit Provider Pito Maya DO Your Diagnosis Trigger finger of right hand CKD stage 3 secondary to diabetes Diabetes mellitus, with long-term current use of insulin Chronic kidney disease, stage 3 unspecified prison (current) use of insulin Vitals Signs Pulse Rate: 77 bpm Height: 172.7 cm Systolic Blood Pressure:??144 mm Hg??High Weight: 95.6 kg Diastolic Blood Pressure: 64 mm Hg Body Mass Index:??32.05 kg/m2??Critical Oxygen Saturation: 96 % Body surface area: 2.14 What to do next Follow-Up Appointments Follow Up with??Pito Maya DO When:??10/03/2024 02:40 PM EDT Where: [address] [place] [id number]- Business (1) Follow up Appointment - Ordered?-- 6 months, CPE, 04/10/24 15:05:00 EST Future Orders Basic Metabolic Panel - Routine, Once, 09/06/23 13:56:00 EDT, Future Order, [facility], Blood?? PSA Screen - Routine, Once, 10/05/23 15:46:00 EDT, Order for Today, [facility], Blood?? CBC w/ Differential - Routine, Once, 04/10/24 15:04:00 EST, Order for Today, [facility], Blood?? Comprehensive Metabolic Panel - Routine, Once, 04/10/24 15:04:00 EST, Order for Today, [facility], Blood?? Hemoglobin A1C (Monitoring) - Routine, Once, 04/10/24 15:04:00 EST, Order for Today, [facility], Blood?? Medications The list below reflects the information in our records and provided by you today along with any changes made during this visit. Please continue your medications until treatment is completed or stopped by your provider. If this is different from the information you have or there are other questions,please contact the prescribing provider. What How Much When Why Instructions Changed Rosuvastatin (Crestor 40 mg oral tablet) 1 tab(s) Oral Daily Duration: 90 Days Unchanged Acetaminophen (acetaminophen 325 mg oral tablet) 650 Milligram Oral Every 4 hours as needed for Temperature greater than 101F or Mild Pain ?? Unchanged Amoxicillin (amoxicillin 500 mg oral tablet) 4 tab(s) Oral Once 4 tabs 1 hour prior to dental procedure ?? Unchanged Aspirin (aspirin 81 mg oral tablet) 1 tab(s) Oral Daily Unchanged Durable Medical Equipment (Freestyle Lite Monitor) See instructions DIABETES MELLITUS Test blood sugars 3 times a day ?? Unchanged Durable Medical Equipment (Freestyle Lite Test Strips) See instructions DIABETES MELLITUS Test blood sugars 3 times a day ?? Unchanged Durable Medical Equipment (One Touch Delica Lancets) See instructions 1 box = 100 lancets Use to test blood sugar 3 x day DX 250.0 ?? Unchanged Durable Medical Equipment (One Touch Ultra 2 Glucose Meter) See instructions to be used to test blood sugars 3x daily DX 250.0 ?? Unchanged Durable Medical Equipment (One Touch Ultra Test Strips) See instructions Duration: 30 Days TEST BLOOD SUGARS 3 X DAILY DIRECTED for Type 2 Diabetes MellituS ?? Unchanged Durable Medical Equipment (Pen Celina, 32 G x 4 mm BD Ultra Fine III) See instructions DM (diabetes mellitus), type 2 for flex pen needles Use as directed with flex pen Dx: E11.9 ?? Unchanged Fenofibrate (fenofibrate 134 mg oral capsule) 1 capsule Oral Daily Duration: 90 Days Unchanged Hydrochlorothiazide (hydrochlorothiazide 25 mg oral tablet) 1 tab(s) Oral Daily Duration: 90 Days Take with Food ?? Unchanged Insulin Glargine (Lantus Solostar Pen 100 units/ mL subcutaneous solution) See instructions INJECT 30 UNITS UNDER THE SKIN EVERY MORNING ?? Unchanged Metformin (metFORMIN 750 mg oral tablet, extended release) 2 tab(s) Oral Daily Duration: 90 Days Take with food ?? Unchanged Metoprolol (Metoprolol Tartrate 100 mg oral tablet) 1 tab(s) Oral Twice a day Duration: 90 Days Unchanged Metronidazole Topical (metroNIDAZOLE 1% topical gel) 1 sera Topically Daily Rosacea apply a thin film to affected area after washing ?? Unchanged Mupirocin Topical (mupirocin 2% topical cream) 1 sera Topically 3 times a day Health care maintenance Unchanged semaglutide (Ozempic 2 mg/ 3 mL (0.25 mg or 0.5 mg dose) subcutaneous solution) See instructions INJECT 0.5MG SUBCUTANEOUSLY ONCE A WEEK ?? Unchanged Warfarin (warfarin 4 mg oral tablet) See instructions TAKE 2 TABLETS BY MOUTH ONCE DAILY DIRECTED BY ??COUMADIN ??CLINIC ? 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 Stop Taking Triamcinolone Topical (triamcinolone 0.1% topical cream) 1 sera Topically Twice a day Health care maintenance Test Performed Below is a partial list of the tests performed during your Visit. You may have had other tests and procedures not included in this list. Please discuss all test results with your provider. CBC w/ Differential?-- Results Pending -- Comprehensive Metabolic Panel?-- Results Pending -- Hemoglobin A1C (Monitoring)?-- Results Pending -- Medications and Immunizations Administered Medications Given During Visit No medications given during this visit.?? Allergies (NKA means No Known Allergies) Contrast Dye??(Unknown) Demerol HCl??(stops breathing) Lipitor??(hives) Plavix??(hives) allopurinol??(hives) contrast media (iodine-based) Common Emergency Awareness Tips IS IT A STROKE? Act FAST and Check for these signs: FACE Does the face look uneven? ARM Does one arm drift down? SPEECH Does their speech sound strange? TIME Call at any sign of stroke ?? Heart Attack Signs Chest discomfort: Most heart attacks involve discomfort in the center of the chest and lasts more than a few minutes, or goes away and comes back. It can feel like uncomfortable pressure, squeezing, fullness or pain. Discomfort in upper body: Symptoms can include pain or discomfort in one or both arms, back, neck, jaw or stomach. Shortness of breath: With or without discomfort. Other signs: Breaking out in a cold sweat, nausea, or lightheaded. Remember, MINUTES DO MATTER. If you experience any of these heart attack warning signs, call to get immediate medical attention! ?? Smoking can increase your chances of developing chronic health problems and can cause harmful effects to other family members in your house. If you smoke, you are strongly encouraged to quit. Please call [facility] at [phone] or [phone] ([phone]) or log in to [email or web address] for referrals to smoking cessation programs. ?? The National Suicide Prevention Hotline is available 21/12 if you or someone you know needs to find a reason to keep living. By calling 5-516-512-[facility] (2741) you'll be connected to a skilled, trained counselor at a crisis center in your area. [facility] You can view and manage your care through the patient portal or by using a health care sera of your choosing. [email or web address] is a website that allows you to securely view your medical information including your hospital discharge summary, office visit summaries, medications and follow-up visits. You can also request appointments, renew medications, and request access to your medical information using a health care sera of your choosing, or just ask a question. You can enroll at [email or web address] or register during your next office visit. [facility], in keeping with [facility] guidance, no longer requires face masks for staff, patientsor visitors in most situations. Similiar to time spent indoors at other locations, there is the chance that you were exposed to repiratory viruses during your time with us (such as flu or COVID-19). If you develop symptoms concerning for a viral respiratory infection, please seek testing (and treatment if indicated) from your medical provider or home test kit. ?? Disclaimer: The information provided is of a general nature and is intended to be used in conjunction with the recommendations and advice of your health care practitioner. Every effort has been made to ensure that the information provided is accurate and complete at the time it is provided to you however, as your needs change, or, as new information becomes available, different or additional instructions may be required. ?? If you have questions, please consult with your primary care provider or pharmacist, as appropriate. This information is not intended to serve as substitution for assessment and evaluation by a qualified health care provider. If you do not have a primary care provider, you may find a [facility] provider by calling [facility] at [phone]. * Alyssa Hammer: PERFORM Event Display: Patient Education/Instruction Authored Date: Ambulatory Adult Visit Summary [address] [id number] Name: EDDIE GILBERT : 1960?? Visit: 04/10/2024 14:35?? Ambulatory Visit Instructions ?? Your Care Team Primary Care Provider Pito Maya DO? This Visit Provider Pito Maya DO Your Diagnosis Trigger finger of right hand CKD stage 3 secondary to diabetes Diabetes mellitus, with long-term current use of insulin Chronic kidney disease, stage 3 unspecified prison (current) use of insulin Vitals Signs Pulse Rate: 77 bpm Height: 172.7 cm Systolic Blood Pressure:??144 mm Hg??High Weight: 95.6 kg Diastolic Blood Pressure: 64 mm Hg Body Mass Index:??32.05 kg/m2??Critical Oxygen Saturation: 96 % Body surface area: 2.14 What to do next Follow-Up Appointments Follow up Appointment - Ordered?-- 6 months, CPE, 04/10/24 15:05:00 EST Future Orders Basic Metabolic Panel - Routine, Once, 09/06/23 13:56:00 EDT, Future Order, [facility], Blood?? PSA Screen - Routine, Once, 10/05/23 15:46:00 EDT, Order for Today, [facility], Blood?? CBC w/ Differential - Routine, Once, 04/10/24 15:04:00 EST, Order for Today, [facility], Blood?? Comprehensive Metabolic Panel - Routine, Once, 04/10/24 15:04:00 EST, Order for Today, [facility], Blood?? Hemoglobin A1C (Monitoring) - Routine, Once, 04/10/24 15:04:00 EST, Order for Today, [facility], Blood?? Medications The list below reflects the information in our records and provided by you today along with any changes made during this visit. Please continue your medications until treatment is completed or stopped by your provider. If this is different from the information you have or there are other questions,please contact the prescribing provider. What How Much When Why Instructions Changed Rosuvastatin (Crestor 40 mg oral tablet) 1 tab(s) Oral Daily Duration: 90 Days Unchanged Acetaminophen (acetaminophen 325 mg oral tablet) 650 Milligram Oral Every 4 hours as needed for Temperature greater than 101F or Mild Pain ?? Unchanged Amoxicillin (amoxicillin 500 mg oral tablet) 4 tab(s) Oral Once 4 tabs 1 hour prior to dental procedure ?? Unchanged Aspirin (aspirin 81 mg oral tablet) 1 tab(s) Oral Daily Unchanged Durable Medical Equipment (Freestyle Lite Monitor) See instructions DIABETES MELLITUS Test blood sugars 3 times a day ?? Unchanged Durable Medical Equipment (Freestyle Lite Test Strips) See instructions DIABETES MELLITUS Test blood sugars 3 times a day ?? Unchanged Durable Medical Equipment (One Touch Delica Lancets) See instructions 1 box = 100 lancets Use to test blood sugar 3 x day DX 250.0 ?? Unchanged Durable Medical Equipment (One Touch Ultra 2 Glucose Meter) See instructions to be used to test blood sugars 3x daily DX 250.0 ?? Unchanged Durable Medical Equipment (One Touch Ultra Test Strips) See instructions Duration: 30 Days TEST BLOOD SUGARS 3 X DAILY DIRECTED for Type 2 Diabetes MellituS ?? Unchanged Durable Medical Equipment (Pen Celina, 32 G x 4 mm BD Ultra Fine III) See instructions DM (diabetes mellitus), type 2 for flex pen needles Use as directed with flex pen Dx: E11.9 ?? Unchanged Fenofibrate (fenofibrate 134 mg oral capsule) 1 capsule Oral Daily Duration: 90 Days Unchanged Hydrochlorothiazide (hydrochlorothiazide 25 mg oral tablet) 1 tab(s) Oral Daily Duration: 90 Days Take with Food ?? Unchanged Insulin Glargine (Lantus Solostar Pen 100 units/ mL subcutaneous solution) See instructions INJECT 30 UNITS UNDER THE SKIN EVERY MORNING ?? Unchanged Metformin (metFORMIN 750 mg oral tablet, extended release) 2 tab(s) Oral Daily Duration: 90 Days Take with food ?? Unchanged Metoprolol (Metoprolol Tartrate 100 mg oral tablet) 1 tab(s) Oral Twice a day Duration: 90 Days Unchanged Metronidazole Topical (metroNIDAZOLE 1% topical gel) 1 sera Topically Daily Rosacea apply a thin film to affected area after washing ?? Unchanged Mupirocin Topical (mupirocin 2% topical cream) 1 sera Topically 3 times a day Health care maintenance Unchanged semaglutide (Ozempic 2 mg/ 3 mL (0.25 mg or 0.5 mg dose) subcutaneous solution) See instructions INJECT 0.5MG SUBCUTANEOUSLY ONCE A WEEK ?? Unchanged Warfarin (warfarin 4 mg oral tablet) See instructions TAKE 2 TABLETS BY MOUTH ONCE DAILY DIRECTED BY ??COUMADIN ??CLINIC ? 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 Stop Taking Triamcinolone Topical (triamcinolone 0.1% topical cream) 1 sera Topically Twice a day Health care maintenance Test Performed Below is a partial list of the tests performed during your Visit. You may have had other tests and procedures not included in this list. Please discuss all test results with your provider. CBC w/ Differential?-- Results Pending -- Comprehensive Metabolic Panel?-- Results Pending -- Hemoglobin A1C (Monitoring)?-- Results Pending -- Medications and Immunizations Administered Medications Given During Visit No medications given during this visit.?? Allergies (NKA means No Known Allergies) Contrast Dye??(Unknown) Demerol HCl??(stops breathing) Lipitor??(hives) Plavix??(hives) allopurinol??(hives) contrast media (iodine-based) Common Emergency Awareness Tips IS IT A STROKE? Act FAST and Check for these signs: FACE Does the face look uneven? ARM Does one arm drift down? SPEECH Does their speech sound strange? TIME Call at any sign of stroke ?? Heart Attack Signs Chest discomfort: Most heart attacks involve discomfort in the center of the chest and lasts more than a few minutes, or goes away and comes back. It can feel like uncomfortable pressure, squeezing, fullness or pain. Discomfort in upper body: Symptoms can include pain or discomfort in one or both arms, back, neck, jaw or stomach. Shortness of breath: With or without discomfort. Other signs: Breaking out in a cold sweat, nausea, or lightheaded. Remember, MINUTES DO MATTER. If you experience any of these heart attack warning signs, call to get immediate medical attention! ?? Smoking can increase your chances of developing chronic health problems and can cause harmful effects to other family members in your house. If you smoke, you are strongly encouraged to quit. Please call [facility] at [phone] or [phone] ([phone]) or log in to [email or web address] for referrals to smoking cessation programs. ?? The National Suicide Prevention Hotline is available 21/12 if you or someone you know needs to find a reason to keep living. By calling 0-388-817-[facility] (4089) you'll be connected to a skilled, trained counselor at a crisis center in your area. [facility] You can view and manage your care through the patient portal or by using a health care sera of your choosing. [email or web address] is a website that allows you to securely view your medical information including your hospital discharge summary, office visit summaries, medications and follow-up visits. You can also request appointments, renew medications, and request access to your medical information using a health care sera of your choosing, or just ask a question. You can enroll at [email or web address] or register during your next office visit. [facility], in keeping with [facility] guidance, no longer requires face masks for staff, patientsor visitors in most situations. Similiar to time spent indoors at other locations, there is the chance that you were exposed to repiratory viruses during your time with us (such as flu or COVID-19). If you develop symptoms concerning for a viral respiratory infection, please seek testing (and treatment if indicated) from your medical provider or home test kit. ?? Disclaimer: The information provided is of a general nature and is intended to be used in conjunction with the recommendations and advice of your health care practitioner. Every effort has been made to ensure that the information provided is accurate and complete at the time it is provided to you however, as your needs change, or, as new information becomes available, different or additional instructions may be required. ?? If you have questions, please consult with your primary care provider or pharmacist, as appropriate. This information is not intended to serve as substitution for assessment and evaluation by a qualified health care provider. If you do not have a primary care provider, you may find a [facility] provider by calling [facility] at [phone]. Patient Care team information Care Team Personnel Name: Mary Pena RN Position: [facility] RN Member Role: Primary Care Nurse Name: Kandi Samson RN Position: [facility] RN Member Role: Primary Care Nurse Name: Caitlin Locke RN Position: [facility] RN Member Role: Primary Care Nurse Name: Pretty Street [place] Position: [facility] JOSSELYN ROSE Member Role: Lifetime Consulting Physician Name: Pito Maya DO Position: [facility] Physician - Primary Care Member Role: PCP Address: [address] [place] [address] Telecom: Name: Nelsy Gan RN Position: [facility] RN Member Role: Primary Care Nurse Care Team Related Persons Name: WELLINGTON GREEN Name: AGUSTIN GREEN Insurance Providers Guarantor name: EDDIE GILBERT Health Plan Information #: 1 Payer: [employer] Member Number: [id number] Policy Number: NA Group Number: [id number] Health Plan Information #: 2 Payer: [employer] Member Number: [id number] Policy Number: NA Group Number: [id number]
== END 2024-05-02 15:43 | disposition home or self-care (01) ==
LOC: HO.ACS 15:28
PROVIDERS: PCP Family Medicine; Visit Provider Internal Medicine
DX: Z79.01 Long term (current) use of anticoagulants (principal)

== ENCOUNTER → 2024-05-02 15:28 | Outpatient (BNVA) | payer BC, SELFPAY | PROVIDERS: PCP Family Medicine; Visit Provider Internal Medicine | DX: Z95.2 Presence of prosthetic heart valve (principal); Z79.01 Long term (current) use of anticoagulants; Z51.81 Encounter for therapeutic drug level monitoring | CPT/HCPCS: 85610; 99211 ==

== ENCOUNTER 2024-05-29 15:07 | Outpatient (AMB) | payer BC, SELFPAY ==
--- OUTSIDE RECORDS SUMMARY | 2024-05-29 15:09 | XMS_ITS | Continuity of Care Document ---
Author Organization [facility] Address [address] [place] [address]- Care Team Providers Care Manager Legal Name Role Phone Pito Maya DO Primary Care Physician [phone] [facility] - 05/11/24 [facility] [address] [place] [address]- Encounter Type: Triage Allergies, Adverse Reactions, Alerts Substance Criticality Severity Reaction Reaction Severity Status allopurinol hives Active contrast media (iodine-based) Active Plavix hives Active Demerol HCl stops breathing Ac tive Lipitor hives Active Contrast Dye Unknown Active Immunizations Given and Recorded Vaccine Date Status Refusal Reason influenza virus vaccine, inactivated 04/21/24 Kj rded influenza virus vaccine, inactivated 04/01/23 Kj rded influenza virus vaccine, inactivated 02/17/22 Kj rded influenza virus vaccine, inactivated 03/06/21 Give n influenza virus vaccine, inactivated 01/22/20 Kj rded influenza virus vaccine, inactivated 1 07/10/19 Gi frandy influenza virus vaccine, inactivated 2 04/01/17 Re corded influenza virus vaccine, inactivated 03/03/16 Give n SARS-CoV-2(COVID-19)mRNA-LNP vac([id number]) 04/21/24 Recorded SARS-CoV-2(COVID-19)mRNA-LNP vac([id number]) 04/01/23 Recorded [id number] 12y+ bivalent booster vax 04/17/22 Recorded tetanus/diphtheria/pertussis, acel(Tdap) 03/01/22 Recorded tetanus/diphtheria/pertussis, acel(Tdap) 05/28/15 Given SARS-CoV-2 (COVID-19) mRNA BNT-162b2 vac 3 04/03/21 Given SARS-CoV-2 (COVID-19) mRNA-1273 vaccine 08/24/20 G iven SARS-CoV-2 (COVID-19) mRNA-1273 vaccine 07/27/20 G iven pneumococcal 23-valent vaccine 4 10/26/18 Given 1Result Comment: [facility]#[id number] 2Result Comment: [04/08/2017] Afluria [id number] [facility] 3Result Comment: [id number] 4Result Comment: [facility]: 8961-8014-00 Medications acetaminophen 325 mg oral tablet 650 [...] Refills, Soft Stop, 04/28/23 11:22:00 AM EST, [facility], 172.7, cm, 04/27/23 14:30:00 [...] Refills, Maintenance, 09/29/23 10:07:00 AM EDT, Tablet, [facility], Please ask patient to [...] Refills, Maintenance, 09/29/23 10:08:00 AM EDT, Capsule, [facility], Please ask patient to [...] 3:47:00 PM EDT, Route to Pharmacy Electronically, [facility], 172.7, cm, 10/05/23 15:37:00 EDT, Height, 88.5, kg, 09/02/22 20:03:00 EDT, Dry Weight Start Date: 10/05/23 Stop Date: 09/29/24 Status: Ordered Quantity: 90.0 Unit: tablet Repeat number: 4 Lantus Solostar Pen 100 units/mL subcutaneous solution See Instructions, INJECT 30 UNITS UNDER THE SKIN EVERY MORNING, # 15 mL, 3 Refills, Maintenance, 10/11/23 2:00:00 PM EDT, [facility], 172.7, cm, 10/05/23 15:37:00 EDT, Height, 88.5, kg, 09/02/22 20:03:00 EDT, Dry Weight Start Date: 10/11/23 Status: Ordered Quantity: 15.0 Unit: mL Repeat number: 4 metFORMIN 750 mg oral tablet, extended release 2 tablet = 1,500 mg, By Mouth, Daily, Take with food, # 180 tablet, 1 Refills, Maintenance, 10/05/23 3:47:00 PM EDT, [facility], 172.7, cm, 10/05/23 15:37:00 EDT, Height, 88.5, kg, 09/02/22 20:03:00 EDT, Dry Weight Start Date: 10/05/23 Stop Date: 04/02/24 Status: Ordered Quantity: 180.0 Unit: tablet Repeat number: 2 Metoprolol Tartrate 100 mg oral tablet 1 tablet, By Mouth, 2 times a day, # 180 tablet, 1 Refills, Maintenance, 05/10/24 12:33:00 PM EST, [facility], 172.7, cm, 04/10/24 14:44:00 EST, Height, 88.5, kg, 09/02/22 20:03:00 EDT, Dry Weight Start Date: 05/10/24 Status: Ordered Quantity: 180.0 Unit: tablet Repeat number: 1 metroNIDAZOLE 1% topical gel 1 application, Topically, Daily, apply a thin film to affected area after washing, # 60 Gm, 5 Refills, Maintenance, 12/11/20 11:49:00 AM EDT, Gel, [facility], Partial fill upon patient [...] AM EST, 10/05/23 3:44:00 PM EDT, Cream, [facility], Partial fill upon patient [...] 1 Refills, Maintenance, 10/05/23 3:47:00 PM EDT, [facility], 172.7, cm, 10/05/23 15:37:00 EDT, Height, 88.5, kg, 09/02/22 20:03:00 EDT, Dry Weight Start Date: 10/05/23 Status: Ordered Quantity: 90.0 Unit: each Repeat number: 2 Pen [place], 32 G x 4 mm BD Ultra [...] tablet, 3 Refills, 06/21/23 9:10:00 AM EST, [facility], 172.7, cm, 04/27/23 14:30:00 EST, Height, 88.5, kg, 09/02/22 20:03:00 EDT, Dry Weight Start Date: 06/21/23 Status: Ordered Quantity: 180.0 Unit: tablet Repeat number: 4 Problem List Condition Confirmation Course Effective Dates Status Health Status Informant Anticoagulation goal of INR 2.5 to 3.5- due to mechanical Aortic valve- managed by [facility] 1, 2 Confirmed Active [...] anticoagulants- due to mechanical AVR, followed by [facility] 5 Confirmed Active Mitral valve regurgitation Confirmed 03/25/22 Active Obese class I Confirmed Active Health care maintenance Confirmed Active Persistent proteinuria associated with type 2 diabetes mellitus Confirmed 06/20/13 Active Rosacea Confirmed Active Trigger finger of right hand Confirmed Active Vitamin D deficiency Confirmed Active 1managed by [facility] 2goal of INR 2.5 to 3.5- due to mechanical valve 25433 4Aortic 5due to mechanical AVR, followed by [facility] Social History Social History Type Response Tobacco Use: Occasional ciga r special occasion. Type: Cigars. Sex Sex Representation Male (finding) Patient Care team information Care Team Personnel Name: Mary Pena RN Position: [facility] RN Member Role: Primary Care Nurse Name: Kandi Samson RN Position: [facility] RN Member Role: Primary Care Nurse Name: Caitlin Locke RN Position: [facility] RN Member Role: Primary Care Nurse Name: Pretty Street [place] Position: [facility] JOSSELYN ROSE Member Role: Lifetime Consulting Physician Name: Pito Maya DO Position: [facility] Physician - Primary Care Member Role: PCP Address: [address] [place] [address]- Telecom: Name: Nelsy Gan RN Position: [facility] RN Member Role: Primary Care Nurse Care Team Related Persons Name: WELLINGTON GREEN Name: AGUSTIN GREEN Insurance Providers Guarantor name: [facility]IE [facility] Plan Information #: 1 Payer: [employer] Member Number: NA Policy Number: NA Group Number: NA
--- NOTE | 2024-05-29 15:12 | MHC.OFFVISCO ---
Intake Intake Visit Reasons: Anticoagulation Allergies meperidine [From Demerol] Allergy (Severe, Verified 05/29/24 15:08) DIFF BREATHING clopidogrel [From Plavix] Allergy (Intermediate, Verified 05/29/24 15:08) EDEMA allopurinol Allergy (Intermediate, Uncoded 05/29/24 15:08) Hives contrast dye Adverse Reaction (Intermediate, Uncoded 05/29/24 15:08) Hives Medication List - Last Reconciled 05/29/24 by Blanca Pavon RN amoxicillin 2,000 mg PO ONCE PRN aspirin (Adult Low Dose Aspirin) 81 mg PO DAILY fenofibrate micronized 134 mg PO DAILY hydrochlorothiazide 25 mg PO DAILY insulin glargine (Lantus Solostar U-100 Insulin) subcut every morning; metformin ER 1,500 mg PO DAILY metoprolol tartrate 100 mg PO BID metronidazole 1% topical mupirocin 2% 1 appl topical TID pen needle, diabetic As directed rosuvastatin 40 mg PO DAILY semaglutide 0.5 mg subcut QWEEK sildenafil mg PO triamcinolone acetonide 0.1% appl topical warfarin 4 mg See Protocol PO DAILY Nursing Note INR: 3.0- in therapeutic range of 2.5- 3.5 Medications and supplements reviewed No changes in health, diet, medications, or supplements, Denies any signs and symptoms of bleeding or bruising or clotting. 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
[2024-05-29 15:13] LABS: Prothrombin Time Whole Bld POC 36.2 sec (11.1-13.5)
== END 2024-05-29 15:18 | disposition home or self-care (01) ==
LOC: HO.ACS 15:07
PROVIDERS: PCP Family Medicine; Visit Provider Internal Medicine
DX: Z79.01 Long term (current) use of anticoagulants (principal)

== ENCOUNTER → 2024-05-29 15:07 | Outpatient (BNVA) | payer BC, SELFPAY | PROVIDERS: PCP Family Medicine; Visit Provider Internal Medicine | DX: Z95.2 Presence of prosthetic heart valve (principal); Z79.01 Long term (current) use of anticoagulants; Z51.81 Encounter for therapeutic drug level monitoring | CPT/HCPCS: 85610; 99211 ==

== ENCOUNTER 2024-06-22 15:04 | Outpatient (AMB) | payer BC, SELFPAY ==
--- NOTE | 2024-06-22 15:19 | MHC.OFFVISCO ---
Intake Intake Visit Reasons: Anticoagulation Allergies meperidine [From Demerol] Allergy (Severe, Verified 05/29/24 15:08) DIFF BREATHING clopidogrel [From Plavix] Allergy (Intermediate, Verified 05/29/24 15:08) EDEMA allopurinol Allergy (Intermediate, Uncoded 05/29/24 15:08) Hives contrast dye Adverse Reaction (Intermediate, Uncoded 05/29/24 15:08) Hives Medication List - Last Reconciled 06/22/24 by Marguerite Mcclelland RN amoxicillin 2,000 mg PO ONCE PRN aspirin (Adult Low Dose Aspirin) 81 mg PO DAILY fenofibrate micronized 134 mg PO DAILY hydrochlorothiazide 25 mg PO DAILY insulin glargine (Lantus Solostar U-100 Insulin) subcut every morning; metformin ER 1,500 mg PO DAILY metoprolol tartrate 100 mg PO BID metronidazole 1% topical mupirocin 2% 1 appl topical TID pen needle, diabetic As directed rosuvastatin 40 mg PO DAILY semaglutide 0.5 mg subcut QWEEK sildenafil mg PO triamcinolone acetonide 0.1% appl topical warfarin 4 mg See Protocol PO DAILY Nursing Note INR: 2.5 in therapeutic range 2.5-3.5 Medications and supplements reviewed No changes in health, diet, medications, or supplements, Denies any signs and symptoms of bleeding or bruising or clotting. 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
[2024-06-22 15:22] LABS: Prothrombin Time Whole Bld POC 29.7 sec (11.1-13.5); ~PT, ~INR - Anti Coag Clinic 2.5 (0.9-1.1)
--- OUTSIDE RECORDS SUMMARY | 2024-06-22 18:00 | XMS_ITS | Continuity of Care Document ---
Author Organization [facility] Address [address] [place] [address]- Care Team Providers Care Web Marketing Manager Name Role Phone Pito Maya DO Primary Care Physician [facility]): 05[facility]10[facility]24 - 06/09/24 [facility] [address] [place] [address]- Encounter Type: Triage Allergies, Adverse Reactions, Alerts [...] virus vaccine, inactivated 03/03/16 Give n SARS-CoV-2(COVID-19)mRNA-LNP vac([id number]) 04/21/24 Recorded SARS-CoV-2(COVID-19)mRNA-LNP vac(ctv717) 04/01/23 Recorded [id number] 12y+ bivalent booster vax 04/17/22 Recorded tetanus/diphtheria/pertussis, acel(Tdap) 03/01/22 Recorded tetanus/diphtheria/pertussis, acel(Tdap) 05/28/15 Given SARS-CoV-2 (COVID-19) mRNA BNT-162b2 vac 3 04/03/21 Given SARS-CoV-2 (COVID-19) mRNA-1273 vaccine 08/24/20 G iven SARS-CoV-2 (COVID-19) mRNA-1273 vaccine 07/27/20 G iven pneumococcal 23-valent vaccine 4 10/26/18 Given 1Result Comment: [facility]#[id number] 2Result Comment: [04/08/2017] Afluria [id number] [facility] 3Result Comment: [id number] 4Result Comment: [facility]: [id number] Medications acetaminophen 325 mg oral tablet 650 [...] # 4 tablet, 2 Refills, Soft Stop, 06/01/24 3:08:00 PM EST, [facility], 172.7, cm, 05/30/24 14:42:00 EST, Height,88.5, kg, 09/02/22 20:03:00 EDT, Dry Weight Start Date: 06/01/24 Status: Ordered Quantity: 4.0 Unit: tablet Repeat number: 3 aspirin 81 mg oral tablet 81 mg, 1, tablet, By Mouth, Daily, 0 Refills Start Date: 05/27/07 Status: Ordered Repeat number: 1 Crestor 40 mg oral tablet 1 tablet = 40 mg, By Mouth, Daily, # 90 tablet, 3 Refills, Maintenance, 09/29/23 10:07:00 AM EDT, Tablet, [facility], Please ask patient to [...] Refills, Maintenance, 09/29/23 10:08:00 AM EDT, Capsule, [facility], Please ask patient to [...] 3:47:00 PM EDT, Route to Pharmacy Electronically, [facility], 172.7, cm, 10/05/23 15:37:00 EDT, Height, 88.5, kg, 09/02/22 20:03:00 EDT, Dry Weight Start Date: 10/05/23 Stop Date: 09/29/24 Status: Ordered Quantity: 90.0 Unit: tablet Repeat number: 4 Lantus Solostar Pen 100 units/mL subcutaneous solution See Instructions, INJECT 30 UNITS UNDER THE SKIN EVERY MORNING, # 15 mL, 3 Refills, Maintenance, 10/11/23 2:00:00 PM EDT, [facility], 172.7, cm, 10/05/23 15:37:00 EDT, Height, 88.5, kg, 09/02/22 20:03:00 EDT, Dry Weight Start Date: 10/11/23 Status: Ordered Quantity: 15.0 Unit: mL Repeat number: 4 metFORMIN 750 mg oral tablet, extended release See Instructions, TAKE 2 TABLETS BY MOUTH ONCE DAILY WITH FOOD, # 180 tablet, 1 Refills, Maintenance, 05/29/24 11:15:00 PM EST, [facility], 172.7, cm, 04/10/24 14:44:00 EST, Height, 88.5, kg, 09/02/22 20:03:00 EDT, Dry Weight Start Date: 05/29/24 Status: Ordered Quantity: 180.0 Unit: tablet Repeat number: 1 Metoprolol Tartrate 100 mg oral tablet 1 tablet, By Mouth, 2 times a day, # 180 tablet, 1 Refills, Maintenance, 05/10/24 12:33:00 PM EST, [facility], 172.7, cm, 04/10/24 14:44:00 EST, Height, 88.5, kg, 09/02/22 20:03:00 EDT, Dry Weight Start Date: 05/10/24 Status: Ordered Quantity: 180.0 Unit: tablet Repeat number: 1 metroNIDAZOLE 1% topical gel 1 application, Topically, Daily, apply a thin film to affected area after washing, # 60 Gm, 5 Refills, Maintenance, 12/11/20 11:49:00 AM EDT, Gel, [facility], Partial fill upon patient [...] AM EST, 10/05/23 3:44:00 PM EDT, Cream, [facility], Partial fill upon patient [...] 1 Refills, Maintenance, 10/05/23 3:47:00 PM EDT, [facility], 172.7, cm, 10/05/23 15:37:00 EDT, Height, 88.5, kg, 09/02/22 20:03:00 EDT, Dry Weight Start Date: 10/05/23 Status: Ordered Quantity: 90.0 Unit: each Repeat number: 2 Pen [place], 32 G x 4 mm BD Ultra [...] tablet, 3 Refills, 06/21/23 9:10:00 AM EST, [facility], 172.7, cm, 04/27/23 14:30:00 EST, Height, 88.5, kg, 09/02/22 20:03:00 EDT, Dry Weight Start Date: 06/21/23 Status: Ordered Quantity: 180.0 Unit: tablet Repeat number: 4 Problem List Condition Confirmation Course Effective Dates Status Health Status Informant Anticoagulation goal of INR 2.5 to 3.5- due to mechanical Aortic valve- managed by [facility] 1, 2 Confirmed Active Carpal [...] anticoagulants- due to mechanical AVR, followed by [facility] 5 Confirmed Active Mitral valve regurgitation Confirmed 03/25/22 Active Obese class I Confirmed Active Health care maintenance Confirmed Active Persistent proteinuria associated with type 2 diabetes mellitus Confirmed 06/20/13 Active Rosacea Confirmed Active Trigger finger of right hand Confirmed Active Vitamin D deficiency Confirmed Active 1managed by [facility] 2goal of INR 2.5 to 3.5- due to mechanical valve 43888 4Aortic 5due to mechanical AVR, followed by [facility] Social History Social History Type Response Tobacco Use: Occasional ciga r special occasion. Type: Cigars. Sex Sex Representation Male (finding) Patient Care team information Care Team Personnel Name: Mary Pena RN Position: [facility] RN Member Role: Primary Care Nurse Name: Kandi Samson RN Position: [facility] RN Member Role: Primary Care Nurse Name: Caitlin Locke RN Position: [facility] RN Member Role: Primary Care Nurse Name: Pretty Street [place] Position: [facility] JOSSELYN ROSE Member Role: Lifetime Consulting Physician Name: Pito Maya DO Position: [facility] Physician - Primary Care Member Role: PCP Address: [address] [place] [address] Telecom: Name: Nelsy Gan RN Position: [facility] RN Member Role: Primary Care Nurse Care Team Related Persons Name: WELLINGTON GREEN Name: AGUSTIN GREEN Insurance Providers Guarantor name: EDDIE GILBERT Health Plan Information #: 1 Payer: [employer] Member Number: NA Policy Number: NA Group Number: NA
== END 2024-06-22 15:22 | disposition home or self-care (01) ==
LOC: HO.ACS 15:04
PROVIDERS: PCP Family Medicine; Visit Provider Internal Medicine
DX: Z79.01 Long term (current) use of anticoagulants (principal)

== ENCOUNTER → 2024-06-22 15:04 | Outpatient (BNVA) | payer BC, SELFPAY | PROVIDERS: PCP Family Medicine; Visit Provider Internal Medicine | DX: Z95.2 Presence of prosthetic heart valve (principal); Z79.01 Long term (current) use of anticoagulants; Z51.81 Encounter for therapeutic drug level monitoring | CPT/HCPCS: 85610; 99211 ==

== ENCOUNTER 2024-07-24 15:32 | Outpatient (AMB) | payer BC, SELFPAY ==
[2024-07-24 15:39] LABS: Prothrombin Time Whole Bld POC 40.3 sec (11.1-13.5); ~PT, ~INR - Anti Coag Clinic 3.4 (0.9-1.1)
--- NOTE | 2024-07-24 15:42 | MHC.OFFVISCO ---
Intake Intake Visit Reasons: Anticoagulation Allergies meperidine [From Demerol] Allergy (Severe, Verified 07/24/24 15:33) DIFF BREATHING clopidogrel [From Plavix] Allergy (Intermediate, Verified 07/24/24 15:33) EDEMA allopurinol Allergy (Intermediate, Uncoded 07/24/24 15:33) Hives contrast dye Adverse Reaction (Intermediate, Uncoded 07/24/24 15:33) Hives Medication List - Last Reconciled 07/24/24 by Marguerite Mcclelland RN amoxicillin 2,000 mg PO ONCE PRN aspirin (Adult Low Dose Aspirin) 81 mg PO DAILY fenofibrate micronized 134 mg PO DAILY hydrochlorothiazide 25 mg PO DAILY insulin glargine (Lantus Solostar U-100 Insulin) subcut every morning; metformin ER 1,500 mg PO DAILY metoprolol tartrate 100 mg PO BID metronidazole 1% topical mupirocin 2% 1 appl topical TID pen needle, diabetic As directed rosuvastatin 40 mg PO DAILY semaglutide 0.5 mg subcut QWEEK sildenafil mg PO triamcinolone acetonide 0.1% appl topical warfarin 4 mg See Protocol PO DAILY Nursing Note INR: 3.4 in therapeutic range Medications and supplements reviewed No changes in health, diet, medications, or supplements, Denies any signs and symptoms of bleeding or bruising or clotting. 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
--- OUTSIDE RECORDS SUMMARY | 2024-07-24 17:49 | XMS_ITS | Encounter Summary ---
Author Organization [facility], Address [address] [place] [address] Phone Care Team Providers Care Table Saw Operator Name Role Phone Cindi Houston MD Primary Care Provider [phone] Encounter Details Date Type Department Care Team (Late st Contact Info) Description 08/05/2022 Documentation Only [facility], [facility] [address] [place] [id number] Cindi Houston MD [address] [place], [place] [id number] Social History Tobacco Use Types Packs/Day Years Used Date Smoking Tobacco: Some Days Cigars Alcohol Use Standard Drinks/Week Comments Yes 0 (1 standard drink = 0.6 oz pur e alcohol) 1-2 per month Sex and Gender Information Value Date Recorded Sex Assigned at Not on file Legal Sex Male 2:16 PM EST Gender Identity Not on file Sexual Orientation Not on file 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
--- OUTSIDE RECORDS SUMMARY | 2024-07-24 17:49 | XMS_ITS | Continuity of Care Document ---
Author Organization [facility] Address [address] [place] [address]- Care Team Providers Care Press Tender Short Goods Name Role Phone Pito Maya DO Primary Care Physician [phone] [facility] 07/[facility]/24 [facility] [address] [place] [address]- Encounter Type: Triage Allergies, Adverse Reactions, Alerts [...] virus vaccine, inactivated 03/03/16 Give n SARS-CoV-2(COVID-19)mRNA-LNP vac([id number]) 04/21/24 Recorded SARS-CoV-2(COVID-19)mRNA-LNP vac([id number]) 04/01/23 Recorded [id number] 12y+ bivalent booster vax 04/17/22 Recorded tetanus/diphtheria/pertussis, acel(Tdap) 03/01/22 Recorded tetanus/diphtheria/pertussis, acel(Tdap) 05/28/15 Given SARS-CoV-2 (COVID-19) mRNA BNT-162b2 vac 3 04/03/21 Given SARS-CoV-2 (COVID-19) mRNA-1273 vaccine 08/24/20 G iven SARS-CoV-2 (COVID-19) mRNA-1273 vaccine 07/27/20 G iven pneumococcal 23-valent vaccine 4 10/26/18 Given 1Result Comment: [facility]#[id number] 2Result Comment: [04/08/2017] Afluria [id number] [facility] 3Result Comment: [id number] 4Result Comment: [facility]: [id number] Medications acetaminophen 325 mg oral tablet 650 [...] Refills, Soft Stop, 06/01/24 3:08:00 PM EST, [facility], 172.7, cm, 05/30/24 14:42:00 [...] Refills, Maintenance, 09/29/23 10:07:00 AM EDT, Tablet, [facility], Please ask patient to [...] Refills, Maintenance, 09/29/23 10:08:00 AM EDT, Capsule, [facility], Please ask patient to [...] 3:47:00 PM EDT, Route to Pharmacy Electronically, [facility], 172.7, cm, 10/05/23 15:37:00 EDT, Height, 88.5, kg, 09/02/22 20:03:00 EDT, Dry Weight Start Date: 10/05/23 Stop Date: 09/29/24 Status: Ordered Quantity: 90.0 Unit: tablet Repeat number: 4 Lantus Solostar Pen 100 units/mL subcutaneous solution See Instructions, INJECT 30 UNITS UNDER THE SKIN EVERY MORNING, # 15 mL, 3 Refills, Maintenance, 10/11/23 2:00:00 PM EDT, [facility], 172.7, cm, 10/05/23 15:37:00 EDT, Height, 88.5, kg, 09/02/22 20:03:00 EDT, Dry Weight Start Date: 10/11/23 Status: Ordered Quantity: 15.0 Unit: mL Repeat number: 4 metFORMIN 750 mg oral tablet, extended release See Instructions, TAKE 2 TABLETS BY MOUTH ONCE DAILY WITH FOOD, # 180 tablet, 1 Refills, Maintenance, 05/29/24 11:15:00 PM EST, [facility], 172.7, cm, 04/10/24 14:44:00 EST, Height, 88.5, kg, 09/02/22 20:03:00 EDT, Dry Weight Start Date: 05/29/24 Status: Ordered Quantity: 180.0 Unit: tablet Repeat number: 1 Metoprolol Tartrate 100 mg oral tablet 1 tablet, By Mouth, 2 times a day, # 180 tablet, 1 Refills, Maintenance, 05/10/24 12:33:00 PM EST, [facility], 172.7, cm, 04/10/24 14:44:00 EST, Height, 88.5, kg, 09/02/22 20:03:00 EDT, Dry Weight Start Date: 05/10/24 Status: Ordered Quantity: 180.0 Unit: tablet Repeat number: 1 metroNIDAZOLE 1% topical gel 1 application, Topically, Daily, apply a thin film to affected area after washing, # 60 Gm, 5 Refills, Maintenance, 12/11/20 11:49:00 AM EDT, Gel, [facility], Partial fill upon patient request if [...] AM EST, 10/05/23 3:44:00 PM EDT, Cream, [facility], Partial fill upon patient [...] WEEK, # 90 each, 1 Refills, Maintenance, 06/20/24 7:21:00 PM EST, [facility], 172.7, cm, 05/30/24 14:42:00 EST, Height, 88.5, kg, 09/02/22 20:03:00 EDT, Dry Weight Start Date: 06/20/24 Status: Ordered Quantity: 90.0 Unit: each Repeat number: 2 Pen [place], 32 G x 4 mm BD Ultra [...] tablet, 3 Refills, 06/21/23 9:10:00 AM EST, [facility], 172.7, cm, 04/27/23 14:30:00 EST, Height, 88.5, kg, 09/02/22 20:03:00 EDT, Dry Weight Start Date: 06/21/23 Status: Ordered Quantity: 180.0 Unit: tablet Repeat number: 4 Problem List Condition Confirmation Course Effective Dates Status Health Status Informant Anticoagulation goal of INR 2.5 to 3.5- due to mechanical Aortic valve- managed by [facility] 1, 2 Confirmed Active Carpal tunnel [...] valve replacement) Confirmed Active S/P CABG x 3-----2014 3 Confirmed Active Mechanical heart valve present- Aortic 4 Confirmed Active Hypercholesterolemia Confirmed Active Hypertension Confirmed Active Hypomagnesemia Confirmed Active Long-term (current) use of anticoagulants- due to mechanical AVR, followed by [place] [facility] 5 Confirmed Active Mitral valve regurgitation Confirmed 03/25/22 Active Obese class I Confirmed Active Health care maintenance Confirmed Active Persistent proteinuria associated with type 2 diabetes mellitus Confirmed 06/20/13 Active Rosacea Confirmed Active Trigger finger of right hand Confirmed Active Vitamin D deficiency Confirmed Active 1managed by [facility] 2goal of INR 2.5 to 3.5- due to mechanical valve 72599 4Aortic 5due to mechanical AVR, followed by [facility] Social History Social History Type Response Tobacco Use: Occasional ciga r special occasion. Type: Cigars. Sex Sex Representation Male (finding) Patient Care team information Care Team Personnel Name: Mary Pena RN Position: [facility] RN Member Role: Primary Care Nurse Name: Kandi Samson RN Position: [facility] RN Member Role: Primary Care Nurse Name: Caitlin Locke RN Position: [facility] RN Member Role: Primary Care Nurse Name: Pretty Street [place] Position: [facility] JOSSELYN ROSE Member Role: Lifetime Consulting Physician Name: Pito Maya DO Position: [facility] Physician - Primary Care Member Role: PCP Address: [address] [place] [address] Telecom: Name: Nelsy Gan RN Position: [facility] RN Member Role: Primary Care Nurse Care Team Related Persons Name: WELLINGTON GREEN Name: AGUSTIN GREEN Insurance Providers Guarantor name: [facility] Plan Information #: 1 Payer: [employer] ELECT Member Number: NA Policy Number: NA Group Number: NA
--- OUTSIDE RECORDS SUMMARY | 2024-07-24 17:49 | XMS_ITS | Clinical Summary ---
Author Organization [facility], Address [address] [place] [address] Phone Care Team Providers Care Boats Renter Name Role Phone Cindi Houston MD Primary Care Provider [phone] Allergies Active Allergy Reactions Criticality Noted Date Comments Allopurinol Hives 05/06/2021 Other reaction(s): hives Atorvastatin Hives 05/06/2021 Other reaction(s): hives Clopidogrel 11/04/2017 Other reaction(s): Unknown Other reaction(s): hives Iodinated Contrast Media 05/06/2021 Other reaction(s): Unknown Meperidine Anaphylaxis High 07/06/2017 Other reaction(s): Unknown Other reaction(s): stops breathing Medications aspirin (ST JEIMY) 81 MG EC tablet Take 81 mg by mouth 1 (one) time each day Active fenofibrate micronized (LOFIBRA) 134 MG capsule Take 134 mg by mouth 1 (one) time each day before breakfast Active insulin detemir (LEVEMIR) 100 UNIT/ML injection Inject under the skin every night Active lisinopril 40 MG tablet Take 40 mg by mouth 1 (one) time each day Active metFORMIN XR (GLUCOPHAGE-XR) 750 MG 24 hr tablet Take 1,500 mg by mouth 1 (one) time each day with dinner Do not crush, chew, or split. Active metoprolol tartrate (LOPRESSOR) 100 MG tablet Take 100 mg by mouth 3 (three) times a day Active rosuvastatin (CRESTOR) 40 MG tablet Take 40 mg by mouth 1 (one) time each day Active Semaglutide,0.2 5 or 0.5MG/DOS, (Ozempic, 0.25 or 0.5 MG/DOSE,) 2 MG/1.5ML solution pen-injector Inject under the skin Active warfarin (COUMADIN) 6 MG tablet Take by mouth 1 (one) time each day Take as directed per After Visit Summary. Active hydroCHLOROthia zide 25 MG tablet Take 25 mg by mouth in the morning. 2 Active insulin glargine (Lantus SoloStar) 100 UNIT/ML injection Inject 30 Units under the skin daily 2 Active Semaglutide-Vamshi ght Management 0.5 MG/0.5ML solution auto-injector Inject 0.5 mg under the skin 2 Active Active Problems Problem Noted Date Diagnosed Date Vitamin D deficiency, not otherwise specified Stage 3a chronic kidney disease 05/07/2021 Renal disorder due to type 2 diabetes mellitus 1 07/08/2020 Hypomagnesemia 05/06/2021 Gout 05/06/2021 Diabetes mellitus 09/01/2018 Overview (10/29/2021): Last Assessment & Plan: I do not have a recent A1c. Patient reports this is well controlled. He does continue with daily Levemir. Hypercholesterolemia 06/01/2017 Overview (10/29/2021): Last Assessment & Plan: Despite fenofibrate his triglycerides remain moderately high at around 350. LDL is 55 with HDL of 27. Renal and hepatic function are fine. Last Assessment & Plan: Continue on statin therapy without change. Essential hypertension 06/01/2017 Overview (10/29/2021): Last Assessment & Plan: Elevated today. He recently bought a home device. I think his goal should be a systolic of around 120 and I have pushed his lisinopril to 40 mg a day. Last Assessment & Plan: Good blood pressure control on current cardiac regimen. No indication for changes today. 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 Not on file Plan of Treatment Health Maintenance Due Date Last Done Comments Colorectal Cancer Screening: Annual FOBT 2007 Colorectal Cancer Screening: Colonoscopy 2007 Colorectal Cancer Screening: Sigmoidoscopy 2007 Pneumococcal Vaccine: 65+ Years (2 of 2 - PCV) 10/27/2019 10/26/2018 Diabetes: Hemoglobin A1C 04/15/2021 Diabetes: Ophthalmology Exam 04/15/2021 Diabetes: Pedal Pulse Checked 04/15/2021 Diabetes: Sensory Foot Exam 04/15/2021 Diabetes: Visual Foot Exam 04/15/2021 Influenza Vaccine (#1) 2024 2, 03/06/2021, 01/22/2020, Additional history exists Hepatitis B Vaccine Aged Out No longe r eligible based on patient's age to complete this topic Insurance , [address] [place] [id number] [facility] Care Teams Boats Renter Relationship Specialty Start Date End Date Cindi Houston MD [address] [place], [place] [phone] PCP - General Family Medicine 10/30/21
--- OUTSIDE RECORDS SUMMARY | 2024-07-24 17:49 | XMS_ITS | Continuity of Care Document ---
Author Organization [facility] Address [address] [place] [address]- Care Team Providers Care Building And Grounds Supervisor Name Role Phone Pito Maya DO Primary Care Physician [phone] [facility] - 06/29/24 [facility] [address] [place] [address]- Encounter Type: Triage Allergies, Adverse Reactions, Alerts [...] virus vaccine, inactivated 03/03/16 Give n SARS-CoV-2(COVID-19)mRNA-LNP vac([id number]) 04/21/24 Recorded SARS-CoV-2(COVID-19)mRNA-LNP vac(xek258) 04/01/23 Recorded [id number] 12y+ bivalent booster vax 04/17/22 Recorded tetanus/diphtheria/pertussis, acel(Tdap) 03/01/22 Recorded tetanus/diphtheria/pertussis, acel(Tdap) 05/28/15 Given SARS-CoV-2 (COVID-19) mRNA BNT-162b2 vac 3 04/03/21 Given SARS-CoV-2 (COVID-19) mRNA-1273 vaccine 08/24/20 G iven SARS-CoV-2 (COVID-19) mRNA-1273 vaccine 07/27/20 G iven pneumococcal 23-valent vaccine 4 10/26/18 Given 1Result Comment: [facility]#[id number] 2Result Comment: [04/08/2017] Afluria [id number] [facility] 3Result Comment: [id number] 4Result Comment: [facility]: [id number] Medications acetaminophen 325 mg oral tablet 650 [...] Refills, Soft Stop, 06/01/24 3:08:00 PM EST, [facility], 172.7, cm, 05/30/24 14:42:00 [...] Refills, Maintenance, 09/29/23 10:07:00 AM EDT, Tablet, [facility], Please ask patient to [...] Refills, Maintenance, 09/29/23 10:08:00 AM EDT, Capsule, [facility], Please ask patient to [...] 3:47:00 PM EDT, Route to Pharmacy Electronically, [facility], 172.7, cm, 10/05/23 15:37:00 EDT, Height, 88.5, kg, 09/02/22 20:03:00 EDT, Dry Weight Start Date: 10/05/23 Stop Date: 09/29/24 Status: Ordered Quantity: 90.0 Unit: tablet Repeat number: 4 Lantus Solostar Pen 100 units/mL subcutaneous solution See Instructions, INJECT 30 UNITS UNDER THE SKIN EVERY MORNING, # 15 mL, 3 Refills, Maintenance, 10/11/23 2:00:00 PM EDT, [facility], 172.7, cm, 10/05/23 15:37:00 EDT, Height, 88.5, kg, 09/02/22 20:03:00 EDT, Dry Weight Start Date: 10/11/23 Status: Ordered Quantity: 15.0 Unit: mL Repeat number: 4 metFORMIN 750 mg oral tablet, extended release See Instructions, TAKE 2 TABLETS BY MOUTH ONCE DAILY WITH FOOD, # 180 tablet, 1 Refills, Maintenance, 05/29/24 11:15:00 PM EST, [facility], 172.7, cm, 04/10/24 14:44:00 EST, Height, 88.5, kg, 09/02/22 20:03:00 EDT, Dry Weight Start Date: 05/29/24 Status: Ordered Quantity: 180.0 Unit: tablet Repeat number: 1 Metoprolol Tartrate 100 mg oral tablet 1 tablet, By Mouth, 2 times a day, # 180 tablet, 1 Refills, Maintenance, 05/10/24 12:33:00 PM EST, [facility], 172.7, cm, 04/10/24 14:44:00 EST, Height, 88.5, kg, 09/02/22 20:03:00 EDT, Dry Weight Start Date: 05/10/24 Status: Ordered Quantity: 180.0 Unit: tablet Repeat number: 1 metroNIDAZOLE 1% topical gel 1 application, Topically, Daily, apply a thin film to affected area after washing, # 60 Gm, 5 Refills, Maintenance, 12/11/20 11:49:00 AM EDT, Gel, [facility], Partial fill upon patient [...] AM EST, 10/05/23 3:44:00 PM EDT, Cream, [facility], Partial fill upon patient [...] 1 Refills, Maintenance, 06/20/24 7:21:00 PM EST, [facility], 172.7, cm, 05/30/24 14:42:00 EST, Height, 88.5, kg, 09/02/22 20:03:00 EDT, Dry Weight Start Date: 06/20/24 Status: Ordered Quantity: 90.0 Unit: each Repeat number: 2 Pen [place], 32 G x 4 mm BD Ultra [...] tablet, 3 Refills, 06/21/23 9:10:00 AM EST, [facility], 172.7, cm, 04/27/23 14:30:00 EST, Height, 88.5, kg, 09/02/22 20:03:00 EDT, Dry Weight Start Date: 06/21/23 Status: Ordered Quantity: 180.0 Unit: tablet Repeat number: 4 Problem List Condition Confirmation Course Effective Dates Status Health Status Informant Anticoagulation goal of INR 2.5 to 3.5- due to mechanical Aortic valve- managed by [facility] 1, 2 Confirmed Active Carpal [...] anticoagulants- due to mechanical AVR, followed by [place] [facility] 5 Confirmed Active Mitral valve regurgitation Confirmed 03/25/22 Active Obese class I Confirmed Active Health care maintenance Confirmed Active Persistent proteinuria associated with type 2 diabetes mellitus Confirmed 06/20/13 Active Rosacea Confirmed Active Trigger finger of right hand Confirmed Active Vitamin D deficiency Confirmed Active 1managed by [facility] 2goal of INR 2.5 to 3.5- due to mechanical valve 69362 4Aortic 5due to mechanical AVR, followed by [facility] Social History Social History Type Response Tobacco Use: Occasional ciga r special occasion. Type: Cigars. Sex Sex Representation Male (finding) Patient Care team information Care Team Personnel Name: Mary Pena RN Position: [facility] RN Member Role: Primary Care Nurse Name: Kandi Samson RN Position: [facility] RN Member Role: Primary Care Nurse Name: Caitlin Locke RN Position: [facility] RN Member Role: Primary Care Nurse Name: Pretty Street [place] Position: [facility] JOSSELYN ROSE Member Role: Lifetime Consulting Physician Name: Pito Maya DO Position: [facility] Physician - Primary Care Member Role: PCP Address: [address] [place] [address] Telecom: Name: Nelsy Gan RN Position: [facility] RN Member Role: Primary Care Nurse Care Team Related Persons Name: WELLINGTON GREEN Name: AGUSTIN GREEN Insurance Providers Guarantor name: [facility] Information #: 1 Payer: [employer] ELECT Member Number: NA Policy Number: NA Group Number: NA
== END 2024-07-24 15:45 | disposition home or self-care (01) ==
LOC: HO.ACS 15:32
PROVIDERS: PCP Family Medicine; Visit Provider Internal Medicine
DX: Z79.01 Long term (current) use of anticoagulants (principal)

== ENCOUNTER → 2024-07-24 15:32 | Outpatient (BNVA) | payer BC, SELFPAY | PROVIDERS: PCP Family Medicine; Visit Provider Internal Medicine | DX: Z95.2 Presence of prosthetic heart valve (principal); Z79.01 Long term (current) use of anticoagulants; Z51.81 Encounter for therapeutic drug level monitoring | CPT/HCPCS: 85610; 99211 ==

== ENCOUNTER 2024-08-21 14:29 | Outpatient (AMB) | payer BC, SELFPAY ==
--- NOTE | 2024-08-21 15:00 | MHC.OFFVISCO ---
Intake Intake Visit Reasons: Anticoagulation Allergies meperidine [From Demerol] Allergy (Severe, Verified 08/21/24 14:39) DIFF BREATHING clopidogrel [From Plavix] Allergy (Intermediate, Verified 08/21/24 14:39) EDEMA allopurinol Allergy (Intermediate, Uncoded 08/21/24 14:39) Hives contrast dye Adverse Reaction (Intermediate, Uncoded 08/21/24 14:39) Hives Medication List - Last Reconciled 08/21/24 by Marguerite Mcclelland RN amoxicillin 2,000 mg PO ONCE PRN aspirin (Adult Low Dose Aspirin) 81 mg PO DAILY fenofibrate micronized 134 mg PO DAILY hydrochlorothiazide 25 mg PO DAILY insulin glargine (Lantus Solostar U-100 Insulin) subcut every morning; metformin ER 1,500 mg PO DAILY metoprolol tartrate 100 mg PO BID metronidazole 1% topical mupirocin 2% 1 appl topical TID pen needle, diabetic As directed rosuvastatin 40 mg PO DAILY semaglutide 0.5 mg subcut QWEEK sildenafil mg PO triamcinolone acetonide 0.1% appl topical warfarin 4 mg See Protocol PO DAILY Nursing Note INR 6.8 CRITICAL INR RESULT out of therapeutic range-2.5-3.5 - refused to go to the lab - Pt aware of bleeding / stroke risk Medications and supplements reviewed Patient status: Pt was having sciatic pain and took naprosyn for a few days then again today- risk of bleeding made aware to pt - but he said he could barley walk, he was enc if he must take it to take with food and increase greens and call md regarding pain. Medications or supplements: no other changes Diet:good Denies any signs and symptoms of bleeding or clotting or unusual bruising Bleeding, bruising, clotting discussed Nutritional guidance given: eat a serving of greens today with out over compensating Dose: hold today and tomorrow due to bleed hx and recheck Wed - pt states unable to return tomorrow- he has an echo in [place] F/U INR Date : 08/23/24 ?? Patient verbalizing understanding of instructions given with read back and will go to ER with any s/x of bleeding or bruising,or stroke symptoms whcih were listed on his instruction sheet. Call to PCP regarding pt status --on hold for over 20 minutes spoke with Vera clerical personel who took msg because nurses too busy and will have them call [facility]. Coding Level of Care Code Est Patient Level 2 Diagnoses Current use of anticoagulant therapy Z79.01 Comment t/c to PCP on hold over >20 min and still waiting call back on critical INR Results AMB INR Fingerstick AMB INR Fingerstick 6.8 Last Edit by Marguerite Mcclelland RN on 08/21/24 14:46 REFUSED LAB DRAW Assessment & Plan Assessment & Plan (1) Current use of anticoagulant therapy: Code(s): Z79.01 - ocean transportation intermediary (current) use of anticoagulants Category: Medical
[2024-08-21 15:28] LABS: Prothrombin Time Whole Bld POC 81.3 sec (11.1-13.5); ~PT, ~INR - Anti Coag Clinic 6.8 (0.9-1.1)
== END 2024-08-21 15:22 | disposition home or self-care (01) ==
LOC: HO.ACS 14:29
PROVIDERS: PCP Family Medicine; Visit Provider Internal Medicine Medical Oncology
DX: Z79.01 Long term (current) use of anticoagulants (principal)

== ENCOUNTER → 2024-08-21 14:29 | Outpatient (BNVA) | payer BC, SELFPAY | PROVIDERS: PCP Family Medicine; Visit Provider Internal Medicine Medical Oncology | DX: Z95.2 Presence of prosthetic heart valve (principal); Z51.81 Encounter for therapeutic drug level monitoring; Z79.01 Long term (current) use of anticoagulants | CPT/HCPCS: 85610; 99212 ==

== ENCOUNTER 2024-08-23 15:21 | Outpatient (AMB) | payer BC, SELFPAY ==
--- NOTE | 2024-08-23 15:28 | MHC.OFFVISCO ---
Intake Intake Visit Reasons: Anticoagulation Allergies meperidine [From Demerol] Allergy (Severe, Verified 08/23/24 15:42) DIFF BREATHING clopidogrel [From Plavix] Allergy (Intermediate, Verified 08/23/24 15:42) EDEMA allopurinol Allergy (Intermediate, Uncoded 08/23/24 15:42) Hives contrast dye Adverse Reaction (Intermediate, Uncoded 08/23/24 15:42) Hives Medication List - Last Reconciled 08/23/24 by Blanca Pavon RN amoxicillin 2,000 mg PO ONCE PRN aspirin (Adult Low Dose Aspirin) 81 mg PO DAILY fenofibrate micronized 134 mg PO DAILY hydrochlorothiazide 25 mg PO DAILY insulin glargine (Lantus Solostar U-100 Insulin) subcut every morning; metformin ER 1,500 mg PO DAILY metoprolol tartrate 100 mg PO BID metronidazole 1% topical mupirocin 2% 1 appl topical TID pen needle, diabetic As directed rosuvastatin 40 mg PO DAILY semaglutide 0.5 mg subcut QWEEK sildenafil mg PO triamcinolone acetonide 0.1% appl topical warfarin 4 mg See Protocol PO DAILY Nursing Note INR 2.2-?? out of therapeutic range of 2.5-3.5 Medications and supplements reviewed Patient status: pt with prev poc inr 6.8 on 08/23/24 Medications or supplements: no changes other than stopped naprosyn Diet: ate increased greens Denies any signs and symptoms of bleeding or clotting or unusual bruising Bleeding, bruising, clotting discussed - denies Nutritional guidance given: no greens for 2 days, eat a red today Dose: 6mg today and tomm then cont reg dosing 6mg x 3, 4mg x 4 F/U INR Date : 1 week? Patient verbalizing understanding of instructions given. Questionnaires HAS-BLED Does the patient had uncontrolled Hypertension?: No Does the patient have renal disease?: No Does the patient have liver disease?: No Does the patient have a history of stroke?: No Has the patient had major bleeding or predisposition to bleeding?: No Does the patient have labile INRs?: Yes Is the patient over 65 years of age?: Yes Is the patient on medications that gives them a predisposition to bleeding?: Yes Does the patient use alcohol?: Yes HAS-BLED Score: 4 CHADSVASC Age: 66-74 Gender: Male Does the patient have a history of CHF?: No Does the patient have a history of Hypertension?: Yes Does the patient have a history of Stroke/TIA/Thromboembolism?: No Does the patient have a history of Vascular Disease (prior MN, PAD or aortic plaque)?: Yes Does the patient have a history of Diabetes?: Yes CHADS VACS Score: 4 Julieta Prediction Score Rsk VTE Active Cancer: No Previous VTE, excluding superficial vein thrombosis: No Reduced mobility: No Already known Thrombophilic Condition: No With-in last month Trauma and/or Surgery: No Elderly 70 year or older: No Heart and/or Respiratory Failure: No Acute Myocardial infarction and/or Ischemic Stroke: No Acute Infection and/or Rheumatologic Disorder: No Obesity (BMI 30 or greater): No Ongoing Hormonal Treatment: No Score: 0 Julieta Score less than 4; Low Risk of VTE Julieta Score 4 or greater; High Risk of VTE Coding Level of Care Code Est Patient Level 1 Diagnoses Current use of anticoagulant therapy Z79.01 Results AMB INR Fingerstick AMB INR Fingerstick 2.2 Last Edit by Blanca Pavon RN on 08/23/24 15:34 interface delay Assessment & Plan Assessment & Plan (1) Current use of anticoagulant therapy: Code(s): Z79.01 - care home (current) use of anticoagulants Category: Medical
[2024-08-23 15:50] LABS: Prothrombin Time Whole Bld POC 26.7 sec (11.1-13.5); ~PT, ~INR - Anti Coag Clinic 2.2 (0.9-1.1)
--- OUTSIDE RECORDS SUMMARY | 2024-08-23 18:24 | XMS_ITS | Clinical Summary ---
Author Organization [facility], Address 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 [place] [id number] [facility] Care Teams Photographic Editor Relationship Specialty Start Date End Date Cindi Houston MD [address] [place], [place] [phone] PCP - General Family Medicine 10/30/21
--- OUTSIDE RECORDS SUMMARY | 2024-08-23 18:24 | XMS_ITS | Encounter Summary ---
Author Organization [facility], Address [address] [place] [address] Phone Care Team Providers Care Casino Floor Supervisor Name Role Phone Cindi Houston MD Primary Care Provider [phone] Encounter Details Date Type Department Care Team (Late st Contact Info) Description 08/05/2022 Documentation Only [facility], [facility] [address] [place] [phone] Cindi Houston MD [address] [place], [place] [id number] Social History Tobacco Use Types Packs/Day Years [...] 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
== END 2024-08-23 15:47 | disposition home or self-care (01) ==
LOC: HO.ACS 15:21
PROVIDERS: PCP Family Medicine; Visit Provider Internal Medicine
DX: Z79.01 Long term (current) use of anticoagulants (principal)

== ENCOUNTER → 2024-08-23 15:21 | Outpatient (BNVA) | payer BC, SELFPAY | PROVIDERS: PCP Family Medicine; Visit Provider Internal Medicine | DX: Z95.2 Presence of prosthetic heart valve (principal); Z79.01 Long term (current) use of anticoagulants; Z51.81 Encounter for therapeutic drug level monitoring | CPT/HCPCS: 85610; 99211 ==

== ENCOUNTER 2024-08-30 14:51 | Outpatient (AMB) | payer BC, SELFPAY ==
--- NOTE | 2024-08-30 14:57 | MHC.OFFVISCO ---
Intake Intake Visit Reasons: Anticoagulation Allergies meperidine [From Demerol] Allergy (Severe, Verified 08/30/24 14:51) DIFF BREATHING clopidogrel [From Plavix] Allergy (Intermediate, Verified 08/30/24 14:51) EDEMA allopurinol Allergy (Intermediate, Uncoded 08/30/24 14:51) Hives contrast dye Adverse Reaction (Intermediate, Uncoded 08/30/24 14:51) Hives Medication List - Last Reconciled 08/30/24 by Blanca Pavon RN amoxicillin 2,000 mg PO ONCE PRN aspirin (Adult Low Dose Aspirin) 81 mg PO DAILY fenofibrate micronized 134 mg PO DAILY hydrochlorothiazide 25 mg PO DAILY insulin glargine (Lantus Solostar U-100 Insulin) subcut every morning; metformin ER 1,500 mg PO DAILY metoprolol tartrate 100 mg PO BID metronidazole 1% topical mupirocin 2% 1 appl topical TID pen needle, diabetic As directed rosuvastatin 40 mg PO DAILY semaglutide 0.5 mg subcut QWEEK sildenafil mg PO triamcinolone acetonide 0.1% appl topical warfarin 4 mg See Protocol PO DAILY Nursing Note INR: 2.8- in therapeutic range 2.5-3.5 Medications and supplements reviewed- no changes No changes in health, diet, medications, or supplements, Denies any signs and symptoms of bleeding or bruising or clotting. Bleeding, bruising, clotting discussed Nutritional guidance given Dose: 6mg x 3, 4mg x 4 F/U INR: 2 weeks Patient verbalizes understanding of instructions given Coding Level of Care Code Est Patient Level 1 Diagnoses Current use of anticoagulant therapy Z79.01 Assessment & Plan Assessment & Plan (1) Current use of anticoagulant therapy: Code(s): Z79.01 - [facility] (current) use of anticoagulants Category: Medical
[2024-08-30 14:58] LABS: Prothrombin Time Whole Bld POC 33.5 sec (11.1-13.5); ~PT, ~INR - Anti Coag Clinic 2.8 (0.9-1.1)
--- OUTSIDE RECORDS SUMMARY | 2024-08-30 17:25 | XMS_ITS | Encounter Summary ---
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
--- OUTSIDE RECORDS SUMMARY | 2024-08-30 17:25 | XMS_ITS | Clinical Summary ---
Author Organization [facility], Address 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 [place] [id number] [facility] Care Teams Telegraph Repeater Installer Relationship Specialty Start Date End Date Cindi Houston MD [address] [place], [place] [phone] PCP - General Family Medicine 10/30/21
== END 2024-08-30 15:07 | disposition home or self-care (01) ==
LOC: HO.ACS 14:51
PROVIDERS: PCP Family Medicine; Visit Provider Internal Medicine Medical Oncology
DX: Z79.01 Long term (current) use of anticoagulants (principal)

== ENCOUNTER → 2024-08-30 14:51 | Outpatient (BNVA) | payer BC, SELFPAY | PROVIDERS: PCP Family Medicine; Visit Provider Internal Medicine Medical Oncology | DX: Z95.2 Presence of prosthetic heart valve (principal); Z79.01 Long term (current) use of anticoagulants; Z51.81 Encounter for therapeutic drug level monitoring | CPT/HCPCS: 85610; 99211 ==

== ENCOUNTER 2024-09-12 15:21 | Outpatient (AMB) | payer BC, SELFPAY ==
[2024-09-12 15:27] LABS: Prothrombin Time Whole Bld POC 36.9 sec (11.1-13.5); ~PT, ~INR - Anti Coag Clinic 3.1 (0.9-1.1)
--- NOTE | 2024-09-12 15:31 | MHC.OFFVISCO ---
Intake Intake Visit Reasons: Anticoagulation Allergies meperidine [From Demerol] Allergy (Severe, Verified 09/12/24 15:22) DIFF BREATHING clopidogrel [From Plavix] Allergy (Intermediate, Verified 09/12/24 15:22) EDEMA allopurinol Allergy (Intermediate, Uncoded 09/12/24 15:22) Hives contrast dye Adverse Reaction (Intermediate, Uncoded 09/12/24 15:22) Hives Medication List - Last Reconciled 09/12/24 by Kimi Gross, TOBI amoxicillin 2,000 mg PO ONCE PRN aspirin (Adult Low Dose Aspirin) 81 mg PO DAILY fenofibrate micronized 134 mg PO DAILY hydrochlorothiazide 25 mg PO DAILY insulin glargine (Lantus Solostar U-100 Insulin) subcut every morning; metformin ER 1,500 mg PO DAILY metoprolol tartrate 100 mg PO BID metronidazole 1% topical mupirocin 2% 1 appl topical TID pen needle, diabetic As directed rosuvastatin 40 mg PO DAILY semaglutide 0.5 mg subcut QWEEK sildenafil mg PO triamcinolone acetonide 0.1% appl topical warfarin 4 mg See Protocol PO DAILY Nursing Note INR: 3.1 in therapeutic range of 2.5-3.5 Medications and supplements reviewed No changes in health, diet, medications, or supplements, Denies any signs and symptoms of bleeding or bruising or clotting. Bleeding, bruising, clotting discussed Nutritional guidance given Dose: 4mg X 4 days and 6mg X 3 days (M/W/F) F/U INR: 4 weeks Patient verbalizes understanding of instructions given Coding Level of Care Code Est Patient Level 1 Diagnoses Current use of anticoagulant therapy Z79.01 Assessment & Plan Assessment & Plan (1) Current use of anticoagulant therapy: Code(s): Z79.01 - prison (current) use of anticoagulants Category: Medical
--- OUTSIDE RECORDS SUMMARY | 2024-09-12 18:32 | XMS_ITS | Clinical Summary ---
Author Organization [facility], Address [address] [place] [address] Phone Care Team Providers Care Aerial Hurricane Hunter Name Role Phone Cindi Houston MD Primary Care Provider [phone] Allergies Active Allergy Reactions Criticality Noted Date [...] for changes today. 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 on file Not on file Plan of Treatment Health Maintenance Due Date Last Done Comments Colorectal Cancer Screening: Annual FOBT 2007 Colorectal Cancer Screening: Colonoscopy 2007 Colorectal Cancer Screening: Sigmoidoscopy 2007 Pneumococcal Vaccine: 50+ Years (2 of 2 - PCV) 10/27/2019 10/26/2018 Diabetes: Hemoglobin A1C 04/15/2021 Diabetes: Ophthalmology Exam 04/15/2021 Diabetes: Pedal Pulse Checked 04/15/2021 Diabetes: Sensory Foot Exam 04/15/2021 Diabetes: Visual Foot Exam 04/15/2021 Influenza Vaccine (Season Ended) 2025 02/17/2022, 03/06/2021, 01/22/2020, Additional history exists Pneumococcal Vaccine: Peds (0 to 5 Years) and At-Risk Patients (6 to 49 Years) Discontinued 10/26/2018 Hepatitis B Vaccine Aged Out No longe r eligible based on patient's age to complete this topic Insurance [facility] Care Teams Aerial Hurricane Hunter Relationship Specialty Start Date End Date Cindi Houston MD [address] [place] [address] PCP - General Family Medicine 10/30/21
--- OUTSIDE RECORDS SUMMARY | 2024-09-12 18:32 | XMS_ITS | Encounter Summary ---
Author Organization [facility], Address [address] [place] [address] Phone Care Team Providers Care Display Coordinator Name Role Phone Cindi Houston MD Primary Care Provider [phone] Encounter Details Date Type Department Care Team (Late st Contact Info) Description 08/05/2022 Documentation Only [facility], [facility] [address] [facility] [address] [place] [phone] Cindi Houston MD [address] [place], [place] [phone] Social History Tobacco Use Types Packs/Day Years [...] 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
== END 2024-09-12 15:33 | disposition home or self-care (01) ==
LOC: HO.ACS 15:21
PROVIDERS: PCP Family Medicine; Visit Provider Internal Medicine Medical Oncology
DX: Z79.01 Long term (current) use of anticoagulants (principal)

== ENCOUNTER → 2024-09-12 15:21 | Outpatient (BNVA) | payer BC, SELFPAY | PROVIDERS: PCP Family Medicine; Visit Provider Internal Medicine Medical Oncology | DX: Z95.2 Presence of prosthetic heart valve (principal); Z51.81 Encounter for therapeutic drug level monitoring; Z79.01 Long term (current) use of anticoagulants | CPT/HCPCS: 85610; 99211 ==

== ENCOUNTER 2024-10-10 15:17 | Outpatient (AMB) | payer BC, SELFPAY ==
[2024-10-10 15:29] LABS: Prothrombin Time Whole Bld POC 63.6 sec (11.1-13.5); ~PT, ~INR - Anti Coag Clinic 5.3 (0.9-1.1)
--- NOTE | 2024-10-10 15:35 | MHC.OFFVISCO ---
Intake Intake Visit Reasons: Anticoagulation Allergies meperidine [From Demerol] Allergy (Severe, Verified 10/10/24 15:19) DIFF BREATHING clopidogrel [From Plavix] Allergy (Intermediate, Verified 10/10/24 15:19) EDEMA allopurinol Allergy (Intermediate, Uncoded 10/10/24 15:19) Hives contrast dye Adverse Reaction (Intermediate, Uncoded 10/10/24 15:19) Hives Medication List - Last Reconciled 10/10/24 by Marguerite Mcclelland RN amoxicillin 2,000 mg PO ONCE PRN aspirin (Adult Low Dose Aspirin) 81 mg PO DAILY fenofibrate micronized 134 mg PO DAILY hydrochlorothiazide 25 mg PO DAILY insulin glargine (Lantus Solostar U-100 Insulin) subcut every morning; metformin ER 1,500 mg PO DAILY metoprolol tartrate 100 mg PO BID metronidazole 1% topical mupirocin 2% 1 appl topical TID pen needle, diabetic As directed rosuvastatin 40 mg PO DAILY semaglutide 0.5 mg subcut QWEEK sildenafil mg PO triamcinolone acetonide 0.1% appl topical warfarin 4 mg See Protocol PO DAILY Nursing Note INR 5.3?out of therapeutic range- DECLINED lab draw - will f/u in 2 days Medications and supplements reviewed Patient status: states he did not eat greens for a few days - may have had more foods that could raise the INR Medications or supplements: states no changes Diet: good Denies any signs and symptoms of bleeding or clotting or unusual bruising Bleeding, bruising, clotting discussed Nutritional guidance given: review food list weekly and especially during season changes, eat greens today but not every day. Dose: INR drops quickly - hold warfarin today then decrease to 4mg wed and recheck INR F/U INR Date: 2 days 10/12/2024 ?? Patient verbalizing understanding of instructions given with read back. t/c to PCP regarding pt status and plan of care spoke with Yonny to convey msg to PCP was sent to nurse triage, spoke with nurse Radha Christiansen RN who will convey pt status mentioned above to PCP Coding Level of Care Code Est Patient Level 2 Diagnoses Current use of anticoagulant therapy Z79.01 Comment t/c to PCP regarding pt critical INR result Results AMB INR Fingerstick AMB INR Fingerstick 5.3 Last Edit by Marguerite Mcclelland RN on 10/10/24 15:31 MANUAL ENTRY Assessment & Plan Assessment & Plan (1) Current use of anticoagulant therapy: Code(s): Z79.01 - shelter (current) use of anticoagulants Category: Medical
--- OUTSIDE RECORDS SUMMARY | 2024-10-10 16:12 | XMS_ITS | Clinical Summary ---
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
--- OUTSIDE RECORDS SUMMARY | 2024-10-10 16:12 | XMS_ITS | Encounter Summary ---
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
== END 2024-10-10 16:01 | disposition home or self-care (01) ==
LOC: HO.ACS 15:17
PROVIDERS: PCP Family Medicine; Visit Provider Internal Medicine Medical Oncology
DX: Z79.01 Long term (current) use of anticoagulants (principal)

== ENCOUNTER → 2024-10-10 15:17 | Outpatient (BNVA) | payer BC, SELFPAY | PROVIDERS: PCP Family Medicine; Visit Provider Internal Medicine Medical Oncology | DX: Z95.2 Presence of prosthetic heart valve (principal); Z51.81 Encounter for therapeutic drug level monitoring; Z79.01 Long term (current) use of anticoagulants | CPT/HCPCS: 85610; 99212 ==

== ENCOUNTER 2024-10-12 08:16 | Outpatient (AMB) | payer BC, SELFPAY ==
[2024-10-12 08:26] LABS: Prothrombin Time Whole Bld POC 35.1 sec (11.1-13.5); ~PT, ~INR - Anti Coag Clinic 2.9 (0.9-1.1)
--- OUTSIDE RECORDS SUMMARY | 2024-10-12 08:26 | XMS_ITS | Continuity of Care Document ---
Author Organization [facility] Address [address] [place] [address]- Care Team Providers Care Finishing Room Operator Name Role Phone Alannah YEAST MAKER, Priscilla Stone Primary Care Physician [phone] Encounter [facility] Date(s): 10/03/24 - 10/10/24 [facility] [address] [place], [place] [address] Encounter Diagnosis Diabetes mellitus, with long-term current use of insulin(Discharge Diagnosis) - 10/03/24 CKD stage 3 secondary to diabetes(Discharge Diagnosis) - 10/03/24 Mechanical heart valve present- Aortic(Discharge Diagnosis) - 10/03/24 Attending Physician: Pito Maya DO Encounter Type: Office Visit Allergies, Adverse Reactions, Alerts Substance Criticality Severity Reaction Reaction Severity Status allopurinol hives Active Plavix hives Active Demerol HCl stops breathing Ac tive contrast media (iodine-based) Active Lipitor hives Active Contrast Dye Unknown Active [...] virus vaccine, inactivated 03/03/16 Give n SARS-CoV-2(COVID-19)mRNA-LNP vac(iei144) 04/21/24 Recorded SARS-CoV-2(COVID-19)mRNA-LNP vac(iil437) 04/01/23 Recorded [id number] 12y+ bivalent booster vax 04/17/22 Recorded tetanus/diphtheria/pertussis, acel(Tdap) 03/01/22 Recorded tetanus/diphtheria/pertussis, acel(Tdap) 05/28/15 Given SARS-CoV-2 (COVID-19) mRNA BNT-162b2 vac 3 04/03/21 Given SARS-CoV-2 (COVID-19) mRNA-1273 vaccine 08/24/20 G iven SARS-CoV-2 (COVID-19) mRNA-1273 vaccine 07/27/20 G iven pneumococcal 23-valent vaccine 4 10/26/18 Given 1Result Comment: [facility]#[id number] 2Result Comment: [04/08/2017] Afluria [id number] [facility] 3Result Comment: [id number] 4Result Comment: [facility][NOTE 2]: [id number] Medications acetaminophen 325 mg oral tablet 650 [...] Refills, Soft Stop, 06/01/24 3:08:00 PM EST, [facility], 172.7, cm, 05/30/24 14:42:00 [...] mg, By Mouth, Daily, # 90 tablet, 1 Refills, Maintenance, 09/23/24 10:07:00 AM EDT, Tablet, [facility], Please ask patient to call office to schedule a medication follow appt elenita, 172.7, cm, 05/30/24 14:42:00 EST, Height Start Date: 09/23/24 Stop Date: 03/22/25 Status: Ordered Quantity: 90.0 Unit: tablet Repeat number: 2 fenofibrate 134 mg oral capsule 1 capsule = 134 mg, By Mouth, Daily, # 90 capsule, 1 Refills, Maintenance, 09/23/24 10:08:00 AM EDT,Capsule, [facility], Please ask patient to call office to schedule a medication follow appt elenita, 172.7, cm, 05/30/24 14:42:00 EST, Height Start Date: 09/23/24 Stop Date: 03/22/25 Status: Ordered Quantity: 90.0 Unit: capsule Repeat number: 2 Freestyle Lite Monitor See Instructions, # 1 [...] 3:47:00 PM EDT, Route to Pharmacy Electronically, [facility], 172.7, cm, 10/05/23 15:37:00 EDT, Height, 88.5, kg, 09/02/22 20:03:00 EDT, Dry Weight Start Date: 10/05/23 Stop Date: 09/29/24 Status: Ordered Quantity: 90.0 Unit: tablet Repeat number: 4 Lantus Solostar Pen 100 units/mL subcutaneous solution See Instructions, INJECT 30 UNITS UNDER THE SKIN EVERY MORNING, # 15 mL, 3 Refills, Maintenance, 10/11/23 2:00:00 PM EDT, [facility], 172.7, cm, 10/05/23 15:37:00 EDT, Height, 88.5, kg, 09/02/22 20:03:00 EDT, Dry Weight Start Date: 10/11/23 Status: Ordered Quantity: 15.0 Unit: mL Repeat number: 4 metFORMIN 750 mg oral tablet, extended release See Instructions, TAKE 2 TABLETS BY MOUTH ONCE DAILY WITH FOOD, # 180 tablet, 1 Refills, Maintenance, 05/29/24 11:15:00 PM EST, [facility], 172.7, cm, 04/10/24 14:44:00 EST, Height, 88.5, kg, 09/02/22 20:03:00 EDT, Dry Weight Start Date: 05/29/24 Status: Ordered Quantity: 180.0 Unit: tablet Repeat number: 1 Metoprolol Tartrate 100 mg oral tablet 1 tablet, By Mouth, 2 times a day, # 180 tablet, 1 Refills, Maintenance, 05/10/24 12:33:00 PM EST, [facility], 172.7, cm, 04/10/24 14:44:00 EST, Height, 88.5, kg, 09/02/22 20:03:00 EDT, Dry Weight Start Date: 05/10/24 Status: Ordered Quantity: 180.0 Unit: tablet Repeat number: 1 metroNIDAZOLE 1% topical gel 1 application, Topically, Daily, apply a thin film to affected area after washing, # 60 Gm, 5 Refills, Maintenance, 12/11/20 11:49:00 AM EDT, Gel, [facility], Partial fill upon patient [...] AM EST, 10/05/23 3:44:00 PM EDT, Cream, [facility], Partial fill upon patient request [...] 1 Refills, Maintenance, 06/20/24 7:21:00 PM EST, [facility], 172.7, cm, 05/30/24 14:42:00 EST, Height, 88.5, kg, 09/02/22 20:03:00 EDT, Dry Weight Start Date: 06/20/24 Status: Ordered Quantity: 90.0 Unit: each Repeat number: 2 Pen Houston, 32 G x 4 mm BD Ultra [...] tablet, 3 Refills, 06/21/23 9:10:00 AM EST, [facility], 172.7, cm, 04/27/23 14:30:00 EST, Height, 88.5, kg, 09/02/22 20:03:00 EDT, Dry Weight Start Date: 06/21/23 Status: Ordered Quantity: 180.0 Unit: tablet Repeat number: 4 Problem List Condition Confirmation Course Effective Dates Status Health Status Informant Anticoagulation goal of INR 2.5 to 3.5- due to mechanical Aortic valve- managed by [facility] 1, 2 Confirmed Active Carpal tunnel [...] anticoagulants- due to mechanical AVR, followed by [facility] 5 Confirmed Active Mitral valve regurgitation Confirmed 03/25/22 Active Health care maintenance Confirmed Active Persistent proteinuria associated with type 2 diabetes mellitus Confirmed 06/20/13 Active Rosacea Confirmed Active Trigger finger of right hand Confirmed Active Vitamin D deficiency Confirmed Active 1managed by [facility] 2goal of INR 2.5 to 3.5- due to mechanical valve 40925 4Aortic 5due to mechanical AVR, followed by [facility] Diagnosis Diagnosis Type Effective Dates Health Status Clinical Service Informant Diabetes mellitus, with long-term current use of insulin Discharge Diagnosis 10/03/24 CKD stage 3 secondary to diabetes Discharge Diagnosis 10/03/24 Mechanical heart valve present- Aortic Discharge Diagnosis 10/03/24 Vital Signs Most recent to oldest [Reference Range]: 1 Height 172.7 cm (10/03/24 2:39 PM) Weight 88.4 kg (10/03/24 2:39 PM) Oxygen Saturation [94-100 %] 97 % (10/03/24 2:39 PM) Pulse Rate [55-90 bpm] 76 bpm (10/03/24 2:39 PM) Body Mass Index [18.5-24.99 kg/m2] 29.64 kg/m2 *H* (10/03/24 2:39 PM) Blood Pressure [90-138/55-84 mm Hg] 144/ 80mm Hg *H* (10/03/24 2:39 PM) Mode of Delivery (Oxygen) Room air (10/03/24 2:39 PM) Blood pressure sites Arm, left (10/03/24 2:39 PM) Weight Obtained Via Standing scale (10/03/24 2:39 PM) Social History Social History Type Response Tobacco Use: Occasional ciga r special occasion. Type: Cigars. Sex Sex Representation Male (finding) Note * Kavon Mayer: PERFORM Event Display: Patient Education/Instruction Authored Date: Ambulatory Adult Visit Summary [address] [id number] Name: EDDIE CARLINJOSHUA : 1960?? Visit: 10/03/2024 14:33?? Ambulatory Visit Instructions ?? Your Care Team Primary Care Provider Alannah FLETCHER, Priscilla Stone? 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 PSA Screen - Routine, Once, 10/05/23 15:46:00 EDT, Order for Today, [facility], Blood?? CBC w/ Differential - Routine, Once, 10/03/24 15:05:00 EDT, Order for Today, [facility], Blood?? Comprehensive Metabolic Panel - Routine, Once, 10/03/24 15:05:00 EDT, Order for Today, [facility], Blood?? Hemoglobin A1C (Monitoring) - Routine, Once, 10/03/24 15:05:00 EDT, Order for Today, [facility], Blood?? Lipid Panel - Routine, Once, 10/03/24 15:05:00 EDT, Order for Today, [facility], Blood?? Medications The [...] provider. What How Much When Why Instructions Unchanged Acetaminophen (acetaminophen 325 mg oral tablet) [...] MellituS ?? Unchanged Durable Medical Equipment (Pen Houston, 32 G x 4 mm BD Ultra [...] (metFORMIN 750 mg oral tablet, extended release) See instructions TAKE 2 TABLETS BY MOUTH ONCE DAILY WITH FOOD ?? Unchanged Metoprolol (Metoprolol Tartrate 100 mg oral tablet) 1 tab(s) Oral Twice a day Unchanged Metronidazole Topical (metroNIDAZOLE 1% topical gel) 1 sera Topically Daily Rosacea apply a thin film to affected area after washing ?? Unchanged Mupirocin Topical (mupirocin 2% topical cream) 1 sera Topically 3 times a day Health care maintenance Unchanged Rosuvastatin (Crestor 40 mg oral tablet) 1 tab(s) Oral Daily Duration: 90 Days Unchanged semaglutide (Ozempic 2 mg/ 3 mL (0.25 mg or 0.5 mg dose) subcutaneous solution) See instructions INJECT 0.5MG SUBCUTANEOUSLY ONCE A WEEK ?? Unchanged Warfarin (warfarin 4 mg oral tablet) See instructions TAKE 2 TABLETS BY MOUTH ONCE DAILY DIRECTED BY ??[facility] ??CLINIC ?? Test Performed Below is a partial list of the tests performed during your Visit. You may have had other tests and procedures not included in this list. Please discuss all test results with your provider. CBC w/ Differential?-- Results Pending -- Comprehensive Metabolic Panel?-- Results Pending -- Hemoglobin A1C (Monitoring)?-- Results Pending -- Lipid Panel?-- Results Pending -- POC HBA1C ([facility]) Lab Test Results Below is a partial list of the most recent Laboratory test results done during your Visit. You may have had other tests and procedures not included in this list. Please discuss all test results with your provider. Test Name Test Result Date/Time POC HBA1C ([facility]) 5.6 % 10/03/2024 14:51 EDT Medications and Immunizations Administered Medications Given During [...] are strongly encouraged to quit. Please call [facility] at [phone] or [phone] ([phone]) or log in to [email or web address] for referrals to smoking cessation programs. ?? The National Suicide Prevention Hotline is available 24/7 if you or someone you know needs to find a reason to keep living. By calling 3-735-086-zxcc ([phone]) you'll be connected to a skilled, trained counselor at a crisis center in your area. [facility] [employer] Portal You can view and manage your care through the patient portal or by using a health care sera of your choosing. [employer] is a website that allows you to securely view your medical information including your hospital discharge summary, office visit summaries, medications and follow-up visits. You can also request appointments, renew medications, and request access to your medical information using a health care sera of your choosing, or just ask a question. You can enroll at [email or web address] or register during your next office visit. [facility], in keeping with [facility] guidance, no longer requires face masks for [...] [facility] provider by calling [facility] [employer] Link at [phone]. Patient Care team information Care Team Personnel Name: Mary Pena RN Position: [facility] WYATT RN Member Role: Primary Care Nurse Name: Kandi Samson RN Position: [facility] RN Member Role: Primary Care Nurse Name: Caitlin Locke RN Position: [facility] RN Member Role: Primary Care Nurse Name: Pretty [address] [place] Position: [facility] Member Role: Lifetime Consulting Physician Name: Priscilla Jaffe NP Position: [facility] PC[facility] Associate Professional Member Role: PCP Address: [address] [place] [address] Telecom: Name: Nelsy Gan RN Position: [facility] RN Member Role: Primary Care Nurse Care Team Related Persons Name: NORMA WELLINGTON Name: AGUSTIN GREEN Insurance Providers Guarantor name: [facility] [employer] [facility] Information #: 1 Payer: [employer] Member Number: [id number] Policy Number: NA Group Number: [id number] Health Plan Information #: 2 Payer: [employer] Member Number: [id number] Policy Number: NA Group Number: [id number]
--- OUTSIDE RECORDS SUMMARY | 2024-10-12 08:27 | XMS_ITS | Encounter Summary ---
Author Organization [facility], Address [address] [place] [address] Phone Care Team Providers Care Fish And Wildlife Biologist Name Role Phone Cindi Houston MD Primary Care Provider [phone] Encounter Details Date Type Department Care Team (Late st Contact Info) Description 08/05/2022 Documentation Only [facility], [facility] [address] [facility] [address] [place] [phone] Cindi Houston MD [address] [place], [place] [phone] Social History Tobacco Use Types Packs/Day Years [...] 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
--- OUTSIDE RECORDS SUMMARY | 2024-10-12 08:27 | XMS_ITS | Clinical Summary ---
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
--- NOTE | 2024-10-12 08:32 | MHC.OFFVISCO ---
Intake Intake Visit Reasons: Anticoagulation Allergies meperidine [From Demerol] Allergy (Severe, Verified 10/12/24 08:22) DIFF BREATHING clopidogrel [From Plavix] Allergy (Intermediate, Verified 10/12/24 08:22) EDEMA allopurinol Allergy (Intermediate, Uncoded 10/12/24 08:22) Hives contrast dye Adverse Reaction (Intermediate, Uncoded 10/12/24 08:22) Hives Medication List - Last Reconciled 10/12/24 by Marguerite Mcclelland RN amoxicillin 2,000 mg PO ONCE PRN aspirin (Adult Low Dose Aspirin) 81 mg PO DAILY fenofibrate micronized 134 mg PO DAILY hydrochlorothiazide 25 mg PO DAILY insulin glargine (Lantus Solostar U-100 Insulin) subcut every morning; metformin ER 1,500 mg PO DAILY metoprolol tartrate 100 mg PO BID metronidazole 1% topical mupirocin 2% 1 appl topical TID pen needle, diabetic As directed rosuvastatin 40 mg PO DAILY semaglutide 0.5 mg subcut QWEEK sildenafil mg PO triamcinolone acetonide 0.1% appl topical warfarin 4 mg See Protocol PO DAILY Nursing Note INR: 2.9 in therapeutic range Medications and supplements reviewed S/P PREVIOUS INR 5.3 S/P DIETARY CHANGES Denies any signs and symptoms of bleeding or bruising or clotting. Bleeding, bruising, clotting discussed Nutritional guidance given =REMEMBER COOKED GREENS CAN LOWER YOUR INR MORE THAN RAW GREENS, SHOULD GO WITHOUT SALADS FOR A FEW DAYS TRY TO EAT A COOKED GREENS Dose: RESUME USUAL DOSE 6MG MWF/ 4MG X 4 DAYS F/U INR: 2 WEEKS Patient verbalizes understanding of instructions given Coding Level of Care Code Est Patient Level 1 Diagnoses Current use of anticoagulant therapy Z79.01 Results AMB INR Fingerstick AMB INR Fingerstick 2.9 Last Edit by Marguerite Mcclelland RN on 10/12/24 08:29 MANUAL ENTRY Assessment & Plan Assessment & Plan (1) Current use of anticoagulant therapy: Code(s): Z79.01 - termite inspector (current) use of anticoagulants Category: Medical
== END 2024-10-12 08:35 | disposition home or self-care (01) ==
LOC: HO.ACS 08:16
PROVIDERS: PCP Family Medicine; Visit Provider Internal Medicine Medical Oncology
DX: Z79.01 Long term (current) use of anticoagulants (principal)

== ENCOUNTER → 2024-10-12 08:16 | Outpatient (BNVA) | payer BC, SELFPAY | PROVIDERS: PCP Family Medicine; Visit Provider Internal Medicine Medical Oncology | DX: Z95.2 Presence of prosthetic heart valve (principal); Z51.81 Encounter for therapeutic drug level monitoring; Z79.01 Long term (current) use of anticoagulants | CPT/HCPCS: 85610; 99211 ==

== ENCOUNTER 2024-10-25 14:58 | Outpatient (AMB) | payer BC, SELFPAY ==
--- NOTE | 2024-10-25 15:08 | MHC.OFFVISCO ---
Intake Intake Visit Reasons: Anticoagulation Allergies meperidine [From Demerol] Allergy (Severe, Verified 10/25/24 15:04) DIFF BREATHING clopidogrel [From Plavix] Allergy (Intermediate, Verified 10/25/24 15:04) EDEMA allopurinol Allergy (Intermediate, Uncoded 10/25/24 15:04) Hives contrast dye Adverse Reaction (Intermediate, Uncoded 10/25/24 15:04) Hives Medication List - Last Reconciled 10/25/24 by Blanca Pavon RN amoxicillin 2,000 mg PO ONCE PRN aspirin (Adult Low Dose Aspirin) 81 mg PO DAILY fenofibrate micronized 134 mg PO DAILY hydrochlorothiazide 25 mg PO DAILY insulin glargine (Lantus Solostar U-100 Insulin) subcut every morning; metformin ER 1,500 mg PO DAILY metoprolol tartrate 100 mg PO BID metronidazole 1% topical mupirocin 2% 1 appl topical TID pen needle, diabetic As directed rosuvastatin 40 mg PO DAILY semaglutide 0.5 mg subcut QWEEK sildenafil mg PO triamcinolone acetonide 0.1% appl topical warfarin 4 mg See Protocol PO DAILY Nursing Note INR: 3.0- in therapeutic range 2.5-3.5 Medications and supplements reviewed- no changes No changes in health, diet, medications, or supplements, Denies any signs and symptoms of bleeding or bruising or clotting. Bleeding, bruising, clotting discussed Nutritional guidance given Dose: 6mg x 3, 4mg x 4 F/U INR:2 weeks Patient verbalizes understanding of instructions given Coding Level of Care Code Est Patient Level 1 Diagnoses Current use of anticoagulant therapy Z79.01 Assessment & Plan Assessment & Plan (1) Current use of anticoagulant therapy: Code(s): Z79.01 - card checker (current) use of anticoagulants Category: Medical
[2024-10-25 15:10] LABS: Prothrombin Time Whole Bld POC 36.4 sec (11.1-13.5)
--- OUTSIDE RECORDS SUMMARY | 2024-10-25 15:44 | XMS_ITS | Encounter Summary ---
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
== END 2024-10-25 15:17 | disposition home or self-care (01) ==
LOC: HO.ACS 14:58
PROVIDERS: PCP Family Medicine; Visit Provider Internal Medicine Medical Oncology
DX: Z79.01 Long term (current) use of anticoagulants (principal)

== ENCOUNTER → 2024-10-25 14:58 | Outpatient (BNVA) | payer BC, SELFPAY | PROVIDERS: PCP Family Medicine; Visit Provider Internal Medicine Medical Oncology | DX: Z95.2 Presence of prosthetic heart valve (principal); Z51.81 Encounter for therapeutic drug level monitoring; Z79.01 Long term (current) use of anticoagulants | CPT/HCPCS: 85610; 99211 ==

== ENCOUNTER 2024-11-08 15:20 | Outpatient (AMB) | payer BC, SELFPAY ==
--- NOTE | 2024-11-08 15:29 | MHC.OFFVISCO ---
Intake Intake Visit Reasons: Anticoagulation Allergies meperidine [From Demerol] Allergy (Severe, Verified 11/08/24 15:25) DIFF BREATHING clopidogrel [From Plavix] Allergy (Intermediate, Verified 11/08/24 15:25) EDEMA allopurinol Allergy (Intermediate, Uncoded 11/08/24 15:25) Hives contrast dye Adverse Reaction (Intermediate, Uncoded 11/08/24 15:25) Hives Medication List - Last Reconciled 11/08/24 by Blanca Pavon RN amoxicillin 2,000 mg PO ONCE PRN aspirin (Adult Low Dose Aspirin) 81 mg PO DAILY fenofibrate micronized 134 mg PO DAILY hydrochlorothiazide 25 mg PO DAILY insulin glargine (Lantus Solostar U-100 Insulin) subcut every morning; metformin ER 1,500 mg PO DAILY metoprolol tartrate 100 mg PO BID metronidazole 1% topical mupirocin 2% 1 appl topical TID pen needle, diabetic As directed rosuvastatin 40 mg PO DAILY semaglutide 0.5 mg subcut QWEEK sildenafil mg PO triamcinolone acetonide 0.1% appl topical warfarin 4 mg See Protocol PO DAILY Nursing Note INR: 3.1- in therapeutic range of 2.5-3.5 Medications and supplements reviewed- no changes No changes in health, diet, medications, or supplements, Denies any signs and symptoms of bleeding or bruising or clotting. Bleeding, bruising, clotting discussed Nutritional guidance given Dose: 4mg x 4, 6mg x 3 F/U INR: 3 weeks due to vacation Patient verbalizes understanding of instructions given Coding Level of Care Code Est Patient Level 1 Diagnoses Current use of anticoagulant therapy Z79.01 Results AMB INR Fingerstick AMB INR Fingerstick 3.1 Last Edit by Blanca Pavon RN on 11/08/24 15:31 interface delaY Assessment & Plan Assessment & Plan (1) Current use of anticoagulant therapy: Code(s): Z79.01 - [facility] (current) use of anticoagulants Category: Medical
[2024-11-08 15:31] LABS: Prothrombin Time Whole Bld POC 37.2 sec (11.1-13.5); ~PT, ~INR - Anti Coag Clinic 3.1 (0.9-1.1)
--- OUTSIDE RECORDS SUMMARY | 2024-11-08 17:40 | XMS_ITS | Continuity of Care Document ---
Author Organization [facility] Address [address] [place] [address]- Care Team Providers Care Registrar Assistant Name Role Phone Alannah HELMINTHOLOGY TEACHER, Priscilla Stone Primary Care Physician Encounter [facility] Date(s): 10/04/24 - 11/03/24 [facility] [address] [place] [address]- Encounter Type: Triage Allergies, Adverse Reactions, Alerts Substance Criticality Severity Reaction Reaction Severity Status allopurinol hives Active Lipitor hives Active contrast media (iodine-based) Active Plavix hives Active Demerol HCl stops breathing Ac tive Contrast Dye Unknown Active Immunizations Given and [...] virus vaccine, inactivated 03/03/16 Give n SARS-CoV-2(COVID-19)mRNA-LNP vac([id number]) 04/21/24 Recorded SARS-CoV-2(COVID-19)mRNA-LNP vac([id number]) 04/01/23 Recorded [id number] 12y+ bivalent booster vax 04/17/22 Recorded tetanus/diphtheria/pertussis, acel(Tdap) 03/01/22 Recorded tetanus/diphtheria/pertussis, acel(Tdap) 05/28/15 Given SARS-CoV-2 (COVID-19) mRNA BNT-162b2 vac 3 04/03/21 Given SARS-CoV-2 (COVID-19) mRNA-1273 vaccine 08/24/20 G iven SARS-CoV-2 (COVID-19) mRNA-1273 vaccine 07/27/20 G iven pneumococcal 23-valent vaccine 4 10/26/18 Given 1Result Comment: [facility]#[id number] 2Result Comment: [04/08/2017] Afluria [id number] [facility] 3Result Comment: [id number] 4Result Comment: [facility]: [id number] Medications acetaminophen 325 mg oral tablet 650 [...] Refills, Soft Stop, 06/01/24 3:08:00 PM EST, [facility], 172.7, cm, 05/30/24 14:42:00 [...] Refills, Maintenance, 09/23/24 10:07:00 AM EDT, Tablet, [facility], Please ask patient to call office to schedule a medication follow appt elenita, 172.7, cm, 05/30/24 14:42:00 EST, Height Start Date: 09/23/24 Stop Date: 03/22/25 Status: Ordered Quantity: 90.0 Unit: tablet Repeat number: 2 fenofibrate 134 mg oral capsule 1 capsule = 134 mg, By Mouth, Daily, # 90 capsule, 1 Refills, Maintenance, 09/23/24 10:08:00 AM EDT,Capsule, [facility], Please ask patient to [...] Quantity: 1.0 Unit: each Repeat number: 1 Indications: Type 2 diabetes mellitus without complications; Freestyle Lite Test Strips See Instructions, # 100 each, Refills 0, Tot. Refills 0, Maintenance, Test blood sugars 3 times a day, 04/17/19 9:25:15 AM EST, Compound Start Date: 04/17/19 Status: Ordered Quantity: 100.0 Unit: each Repeat number: 1 Indications: Type 2 diabetes mellitus without complications; hydrochlorothiazide 25 mg oral tablet 25 mg, 1, tablet, By Mouth, Daily, Take with Food, # 90 tablet, Refills 3, Tot. Refills 3, Maintenance, 10/05/23 3:47:00 PM EDT, Route to Pharmacy Electronically, [facility], 172.7, cm, 10/05/23 15:37:00 EDT, Height, 88.5, kg, 09/02/22 20:03:00 EDT, Dry Weight Start Date: 10/05/23 Stop Date: 09/29/24 Status: Ordered Quantity: 90.0 Unit: tablet Repeat number: 4 Lantus Solostar Pen 100 units/mL subcutaneous solution See Instructions, INJECT 30 UNITS SUBCUTANEOUSLY IN THE MORNING, # 15 mL, 11 Refills, Maintenance, 10/26/24 7:13:00 PM EDT, [facility], 172.7, cm, 10/03/24 14:39:00 EDT, Height Start Date: 10/26/24 Status: Ordered Quantity: 15.0 Unit: mL Repeat number: 1 metFORMIN 750 mg oral tablet, extended release See Instructions, TAKE 2 TABLETS BY MOUTH ONCE DAILY WITH FOOD, # 180 tablet, 1 Refills, Maintenance, 05/29/24 11:15:00 PM EST, [facility], 172.7, cm, 04/10/24 14:44:00 EST, Height, 88.5, kg, 09/02/22 20:03:00 EDT, Dry Weight Start Date: 05/29/24 Status: Ordered Quantity: 180.0 Unit: tablet Repeat number: 1 Metoprolol Tartrate 100 mg oral tablet 1 tablet, By Mouth, 2 times a day, # 180 tablet, 1 Refills, Maintenance, 05/10/24 12:33:00 PM EST, [facility], 172.7, cm, 04/10/24 14:44:00 EST, Height, 88.5, kg, 09/02/22 20:03:00 EDT, Dry Weight Start Date: 05/10/24 Status: Ordered Quantity: 180.0 Unit: tablet Repeat number: 1 metroNIDAZOLE 1% topical gel 1 application, Topically, Daily, apply a thin film to affected area after washing, # 60 Gm, 5 Refills, Maintenance, 12/11/20 11:49:00 AM EDT, Gel, [facility], Partial fill upon patient request if the prescription is for a schedule II opioid drug., 1 application Topically Daily,Instr:applya thin film to affected area after washing, 175.26, cm, 11/28/20 15:48:00 EDT, Height, 103.7, kg, 02/06/19 12:38:00 EDT, Dry Weight Start Date: 12/11/20 Status: Ordered Quantity: 60.0 Unit: g Repeat number: 6 Indications: Rosacea, unspecified; mupirocin 2% topical cream 1 application, Topically, 3 times a day, # 15 Gm, 0 Refills, Acute 05/31/25 12:00:00 AM EST, 10/05/23 3:44:00 PM EDT, [facility], Partial fill upon patient request if the prescription is for a schedule II opioid drug., 1 application Topically 3 times a day, 172.7, cm, 10/05/23 15:37:00 EDT, Height, 88.5, kg, 09/02/22 20:03:00 EDT, Dry Weight Start Date: 10/05/23 Stop Date: 05/31/25 Status: Ordered Quantity: 15.0 Unit: g Repeat number: 1 Indications: Encounter for general adult medical examination without abnormal findings; One Touch Delica Lancets See Instructions, # [...] 1 Refills, Maintenance, 06/20/24 7:21:00 PM EST, [facility], 172.7, cm, 05/30/24 14:42:00 EST, Height, 88.5, kg, 09/02/22 20:03:00 EDT, Dry Weight Start Date: 06/20/24 Status: Ordered Quantity: 90.0 Unit: each Repeat number: 2 Pen [place], 32 G x 4 mm BD Ultra [...] Quantity: 100.0 Unit: each Repeat number: 4 Indications: Type 2 diabetes mellitus without complications; warfarin 4 mg oral tablet See Instructions, TAKE 2 TABLETS BY MOUTH ONCE DAILY DIRECTED BY COUMADIN CLINIC, # 180 tablet, 3 Refills, 06/21/23 9:10:00 AM EST, [facility], 172.7, cm, 04/27/23 14:30:00 EST, Height, 88.5, kg, 09/02/22 20:03:00 EDT, Dry Weight Start Date: 06/21/23 Status: Ordered Quantity: 180.0 Unit: tablet Repeat number: 4 Problem List Condition Confirmation Course Effective Dates Status Health Status Informant Anticoagulation goal of INR 2.5 to 3.5- due to mechanical Aortic valve- managed by [facility] 1, 2 Confirmed Active Carpal tunnel [...] anticoagulants- due to mechanical AVR, followed by [facility] 5 Confirmed Active Mitral valve regurgitation Confirmed 03/25/22 Active Health care maintenance Confirmed Active 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 Type: Cigars. Sex Sex Representation Male (finding) Patient Care team information Care Team Personnel Name: Mary Pena RN Position: [facility] RN Member Role: Primary Care Nurse Name: Kandi Samson RN Position: [facility] RN Member Role: Primary Care Nurse Name: Caitlin Locke RN Position: [facility] RN Member Role: Primary Care Nurse Name: Pretty Street [place] Position: [facility] JOSSELYN [place] Member Role: Lifetime Consulting Physician Name: Priscilla Jaffe NP Position: [facility] PCO Associate Professional Member Role: PCP Address: [address] [place] [address] Telecom: Name: Nelsy Gan RN Position: [facility] RN Member Role: Primary Care Nurse Care Team Related Persons Name: WELLINGTON GREEN Name: AGUSTIN GREEN Insurance Providers Guarantor name: [facility] Information #: 1 Payer: [employer] Payer Identifier: MEGHAN Member Number: [id number] Group Number: [id number] Subscriber Identifier: [id number] Relationship to Subscriber: self Coverage Type: NA Coverage Verification Date: NA Telecom: Address:
== END 2024-11-08 15:37 | disposition home or self-care (01) ==
LOC: HO.ACS 15:20
PROVIDERS: PCP Family Medicine; Visit Provider Internal Medicine Medical Oncology
DX: Z79.01 Long term (current) use of anticoagulants (principal)

== ENCOUNTER → 2024-11-08 15:20 | Outpatient (BNVA) | payer BC, SELFPAY | PROVIDERS: PCP Family Medicine; Visit Provider Internal Medicine Medical Oncology | DX: Z95.2 Presence of prosthetic heart valve (principal); Z79.01 Long term (current) use of anticoagulants; Z51.81 Encounter for therapeutic drug level monitoring | CPT/HCPCS: 85610; 99211 ==

== ENCOUNTER 2024-11-28 15:01 | Outpatient (AMB) | payer BC, SELFPAY ==
--- OUTSIDE RECORDS SUMMARY | 2024-11-25 23:59 | XMS_ITS | Continuity of Care Document ---
Author Organization [facility] Address [address] [place] [address]- Care Team Providers Care Field Sales Associate Name Role Phone Alannah PET AMBASSADOR, Priscilla Stone Primary Care Physician [phone] [place]counter [facility] [place]): 10/26/24 - 11/25/24 [facility] [address] [place], [place] [address] Encounter Type: Triage Allergies, Adverse Reactions, Alerts [...] virus vaccine, inactivated 03/03/16 Give n SARS-CoV-2(COVID-19)mRNA-LNP vac([id number]) 04/21/24 Recorded SARS-CoV-2(COVID-19)mRNA-LNP vac([id number]) 04/01/23 Recorded [id number] 12y+ bivalent booster vax 04/17/22 Recorded tetanus/diphtheria/pertussis, acel(Tdap) 03/01/22 Recorded tetanus/diphtheria/pertussis, acel(Tdap) 05/28/15 Given SARS-CoV-2 (COVID-19) mRNA BNT-162b2 vac 3 04/03/21 Given SARS-CoV-2 (COVID-19) mRNA-1273 vaccine 08/24/20 G iven SARS-CoV-2 (COVID-19) mRNA-1273 vaccine 07/27/20 G iven pneumococcal 23-valent vaccine 4 10/26/18 Given 1Result Comment: [facility]#[id number] 2Result Comment: [04/08/2017] Afluria [id number] [facility] 3Result Comment: [id number] 4Result Comment: [facility]: [id number] Medications acetaminophen 325 mg oral tablet 650 [...] Refills, Soft Stop, 06/01/24 3:08:00 PM EST, [facility], 172.7, cm, 05/30/24 14:42:00 [...] Refills, Maintenance, 09/23/24 10:07:00 AM EDT, Tablet, [facility], Please ask patient to call office to schedule a medication follow appt elenita, 172.7, cm, 05/30/24 14:42:00 EST, Height Start Date: 09/23/24 Stop Date: 03/22/25 Status: Ordered Quantity: 90.0 Unit: tablet Repeat number: 2 fenofibrate 134 mg oral capsule 1 capsule = 134 mg, By Mouth, Daily, # 90 capsule, 1 Refills, Maintenance, 09/23/24 10:08:00 AM EDT,Capsule, [facility], Please ask patient to [...] Take with Food, # 90 tablet, Refills 1, Tot. Refills 1, Maintenance, 11/22/24 11:11:00 AM EDT, Route to Pharmacy Electronically, [facility], 172.7, cm, 10/03/24 14:39:00 EDT, Height Start Date: 11/22/24 Stop Date: 05/21/25 Status: Ordered Quantity: 90.0 Unit: tablet Repeat number: 2 Lantus Solostar Pen 100 units/mL subcutaneous solution See Instructions, INJECT 30 UNITS SUBCUTANEOUSLY IN THE MORNING, # 15 mL, 11 Refills, Maintenance, 10/26/24 7:13:00 PM EDT, [facility], 172.7, cm, 10/03/24 14:39:00 EDT, Height Start Date: 10/26/24 Status: Ordered Quantity: 15.0 Unit: mL Repeat number: 1 metFORMIN 750 mg oral tablet, extended release See Instructions, TAKE 2 TABLETS BY MOUTH ONCE DAILY WITH FOOD, # 180 tablet, 1 Refills, Maintenance, 11/06/24 2:06:00 PM EDT, [facility], 172.7, cm, 10/03/24 14:39:00 EDT, Height Start Date: 11/06/24 Status: Ordered Quantity: 180.0 Unit: tablet Repeat number: 2 Metoprolol Tartrate 100 mg oral tablet 1 tablet, By Mouth, 2 times a day, # 180 tablet, 1 Refills, Maintenance, 11/06/24 2:05:00 PM EDT, [facility], 172.7, cm, 10/03/24 14:39:00 EDT, Height Start Date: 11/06/24 Status: Ordered Quantity: 180.0 Unit: tablet Repeat number: 2 metroNIDAZOLE 1% topical gel 1 application, Topically, Daily, apply a thin film to affected area after washing, # 60 Gm, 5 Refills, Maintenance, 12/11/20 11:49:00 AM EDT, Gel, [facility], Partial fill upon patient [...] AM EST, 10/05/23 3:44:00 PM EDT, Cream, [facility], Partial fill upon patient [...] WEEK, # 90 each, 1 Refills, Maintenance, 11/06/24 2:16:00 PM EDT, [facility], 172.7, cm, 10/03/24 14:39:00 EDT, Height Start Date: 11/06/24 Status: Ordered Quantity: 90.0 Unit: each Repeat number: 2 Pen [place], 32 G x 4 mm BD Ultra Fine III See Instructions, # 100 each, Refills 3, Tot. Refills 3, Maintenance, for flex pen needles Use as directed with flex pen Dx: E11.9, 11/14/24 12:39:00 PM EDT, Dx: DM type 2 ICD10: E11.9, Compound, 172.7, cm, 10/03/24 14:39:00 EDT, Height Start Date: 11/14/24 Status: Ordered Quantity: 100.0 Unit: each Repeat number: 4 Indications: Type 2 diabetes mellitus without complications; warfarin 4 mg oral tablet See Instructions, TAKE 2 TABLETS BY MOUTH ONCE DAILY DIRECTED BY COUMADIN CLINIC, # 180 tablet, 3 Refills, 06/21/23 9:10:00 AM EST, [facility], 172.7, cm, 04/27/23 14:30:00 EST, Height, 88.5, kg, 09/02/22 20:03:00 EDT, Dry Weight Start Date: 06/21/23 Status: Ordered Quantity: 180.0 Unit: tablet Repeat number: 4 Problem List Condition Confirmation Course Effective Dates Status Health Status Informant Anticoagulation goal of INR 2.5 to 3.5- due to mechanical Aortic valve- managed by [facility] 1, 2 Confirmed Active Carpal [...] due to mechanical AVR, followed by [facility] 5 Confirmed Active Mitral valve regurgitation Confirmed 03/25/22 Active Health care maintenance Confirmed Active 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 Type: Cigars. Sex Sex Representation Male (finding) Patient Care team information Care Team Personnel Name: Mary Pena RN Position: [facility] RN Member Role: Primary Care Nurse Name: Kandi Samson RN Position: [facility] RN Member Role: Primary Care Nurse Name: Caitlin Locke RN Position: [facility] RN Member Role: Primary Care Nurse Name: Pretty Street [place] Position: [facility] JOSSELYN ROSE Member Role: Lifetime Consulting Physician Name: Priscilla Jaffe NP Position: [facility] PCO Associate Professional Member Role: PCP Address: [address] [place] [address] Telecom: Name: Nelsy Gan RN Position: [facility] RN Member Role: Primary Care Nurse Care Team Related Persons Name: NORMAWELLINGTON Name: AGUSTIN GREEN Insurance Providers Guarantor name: [facility] Information #: 1 Payer: [employer] [facility] Payer Identifier: NA Member Number: [id number] Group Number: [id number] Subscriber Identifier: [id number] Relationship to Subscriber: self Coverage Type: NA Coverage Verification Date: Telecom: Address:
--- NOTE | 2024-11-28 15:12 | MHC.OFFVISCO ---
Intake Intake Visit Reasons: Anticoagulation Allergies meperidine (From Demerol) Allergy (Severe, Verified 11/28/24 15:02) DIFF BREATHING clopidogrel (From Plavix) Allergy (Intermediate, Verified 11/28/24 15:02) EDEMA allopurinol Allergy (Intermediate, Uncoded 11/28/24 15:02) Hives contrast dye Adverse Reaction (Intermediate, Uncoded 11/28/24 15:02) Hives Medication List - Last Reconciled 11/28/24 by Kimi Gross RN amoxicillin 2,000 mg PO ONCE PRN aspirin (Adult Low Dose Aspirin) 81 mg PO DAILY fenofibrate micronized 134 mg PO DAILY hydrochlorothiazide 25 mg PO DAILY insulin glargine (Lantus Solostar U-100 Insulin) subcut every morning; metformin ER 1,500 mg PO DAILY metoprolol tartrate 100 mg PO BID metronidazole 1% topical mupirocin 2% 1 appl topical TID pen needle, diabetic As directed rosuvastatin 40 mg PO DAILY semaglutide 0.5 mg subcut QWEEK sildenafil mg PO triamcinolone acetonide 0.1% appl topical warfarin 4 mg See Protocol PO DAILY Nursing Note INR: 4.3?out of therapeutic range of 2.5-3.5 Medications and supplements reviewed Patient status: well Medications or supplements: no changes Diet: usual diet for pt Denies any signs and symptoms of bleeding or clotting or unusual bruising Bleeding, bruising, clotting discussed Nutritional guidance given: to have a serving of greens today and tomorrow Dose: decrease today's dose to 2mg (4mg) then 4mg X 4 days and 6mg X 3 days (M/W/F) F/U INR Date: 1 week?? Patient verbalizing understanding of instructions given. Coding Level of Care Code Est Patient Level 1 Diagnoses Current use of anticoagulant therapy Z79.01 Results AMB INR Fingerstick AMB INR Fingerstick 4.3 Last Edit by Kimi Gross RN on 11/28/24 15:08 interface delay Assessment & Plan Assessment & Plan (1) Current use of anticoagulant therapy: Code(s): Z79.01 - [facility] (current) use of anticoagulants Category: Medical
[2024-11-28 15:28] LABS: Prothrombin Time Whole Bld POC 51.6 sec (11.1-13.5); ~PT, ~INR - Anti Coag Clinic 4.3 (0.9-1.1)
--- OUTSIDE RECORDS SUMMARY | 2024-11-28 15:56 | XMS_ITS | Encounter Summary ---
Author Organization [facility], Address [address] [place] [address] Phone Care Team Providers Care Glove Cleaner Name Role Phone Cindi Houston MD Primary Care Provider [phone] Encounter Details Date Type Department Care Team (Late st Contact Info) Description 08/05/2022 Documentation Only [facility], [facility] [place] [address] [place] [phone] Cindi Houston MD [address] [place], [place] [id number] Social History Tobacco Use Types Packs/Day Years [...] 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
== END 2024-11-28 15:15 | disposition home or self-care (01) ==
LOC: HO.ACS 15:01
PROVIDERS: PCP Family Medicine; Visit Provider Internal Medicine Medical Oncology
DX: Z79.01 Long term (current) use of anticoagulants (principal)

== ENCOUNTER → 2024-11-28 15:01 | Outpatient (BNVA) | payer BC, SELFPAY | PROVIDERS: PCP Family Medicine; Visit Provider Internal Medicine Medical Oncology | DX: Z79.01 Long term (current) use of anticoagulants (principal) | CPT/HCPCS: 85610; 99211 ==

== ENCOUNTER 2024-12-05 14:55 | Outpatient (AMB) | payer BC, SELFPAY ==
[2024-12-05 15:02] LABS: Prothrombin Time Whole Bld POC 49.1 sec (11.1-13.5); ~PT, ~INR - Anti Coag Clinic 4.1 (0.9-1.1)
--- NOTE | 2024-12-05 15:05 | MHC.OFFVISCO ---
Intake Intake Visit Reasons: Anticoagulation Allergies meperidine (From Demerol) Allergy (Severe, Verified 12/05/24 14:57) DIFF BREATHING clopidogrel (From Plavix) Allergy (Intermediate, Verified 12/05/24 14:57) EDEMA allopurinol Allergy (Intermediate, Uncoded 12/05/24 14:57) Hives contrast dye Adverse Reaction (Intermediate, Uncoded 12/05/24 14:57) Hives Medication List - Last Reconciled 12/05/24 by Kimi Gross RN amoxicillin 2,000 mg PO ONCE PRN aspirin (Adult Low Dose Aspirin) 81 mg PO DAILY fenofibrate micronized 134 mg PO DAILY hydrochlorothiazide 25 mg PO DAILY insulin glargine (Lantus Solostar U-100 Insulin) subcut every morning; metformin ER 1,500 mg PO DAILY metoprolol tartrate 100 mg PO BID metronidazole 1% topical mupirocin 2% 1 appl topical TID pen needle, diabetic As directed rosuvastatin 40 mg PO DAILY semaglutide 0.5 mg subcut QWEEK sildenafil mg PO triamcinolone acetonide 0.1% appl topical warfarin 4 mg See Protocol PO DAILY Nursing Note INR: 4.1?out of therapeutic range of 2.5-3.5 Medications and supplements reviewed Patient status: well Medications or supplements: no changes Diet: same Denies any signs and symptoms of bleeding or clotting or unusual bruising Bleeding, bruising, clotting discussed Nutritional guidance given: to have a serving of greens today. Pt states he will have broccoli Dose: decrease today's dose to 2mg (4mg) then 4mg X 4 days and 6mg X 3 days F/U INR Date: 3 weeks?? Patient verbalizing understanding of instructions given. Coding Level of Care Code Est Patient Level 1 Diagnoses Current use of anticoagulant therapy Z79.01 Results AMB INR Fingerstick AMB INR Fingerstick 4.1 Last Edit by Kimi Gross RN on 12/05/24 15:01 interface delay Assessment & Plan Assessment & Plan (1) Current use of anticoagulant therapy: Code(s): Z79.01 - [facility] (current) use of anticoagulants Category: Medical
--- OUTSIDE RECORDS SUMMARY | 2024-12-05 15:38 | XMS_ITS | Encounter Summary ---
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
== END 2024-12-05 15:09 | disposition home or self-care (01) ==
LOC: HO.ACS 14:55
PROVIDERS: PCP Family Medicine; Visit Provider Internal Medicine Medical Oncology
DX: Z79.01 Long term (current) use of anticoagulants (principal)

== ENCOUNTER → 2024-12-05 14:55 | Outpatient (BNVA) | payer BC, SELFPAY | PROVIDERS: PCP Family Medicine; Visit Provider Internal Medicine Medical Oncology | DX: Z95.2 Presence of prosthetic heart valve (principal); Z79.01 Long term (current) use of anticoagulants; Z51.81 Encounter for therapeutic drug level monitoring | CPT/HCPCS: 85610; 99211 ==

== ENCOUNTER 2024-12-20 14:18 | Outpatient (AMB) | payer BC, SELFPAY ==
--- NOTE | 2024-12-20 14:25 | MHC.OFFVISCO ---
Intake Intake Visit Reasons: Anticoagulation Allergies meperidine (From Demerol) Allergy (Severe, Verified 12/20/24 14:21) DIFF BREATHING clopidogrel (From Plavix) Allergy (Intermediate, Verified 12/20/24 14:21) EDEMA allopurinol Allergy (Intermediate, Uncoded 12/20/24 14:21) Hives contrast dye Adverse Reaction (Intermediate, Uncoded 12/20/24 14:21) Hives Medication List - Last Reconciled 12/20/24 by Blanca Pavon RN amoxicillin 2,000 mg PO ONCE PRN aspirin (Adult Low Dose Aspirin) 81 mg PO DAILY fenofibrate micronized 134 mg PO DAILY hydrochlorothiazide 25 mg PO DAILY insulin glargine (Lantus Solostar U-100 Insulin) subcut every morning; metformin ER 1,500 mg PO DAILY metoprolol tartrate 100 mg PO BID metronidazole 1% topical mupirocin 2% 1 appl topical TID pen needle, diabetic As directed rosuvastatin 40 mg PO DAILY semaglutide 0.5 mg subcut QWEEK sildenafil mg PO triamcinolone acetonide 0.1% appl topical warfarin 4 mg See Protocol PO DAILY Nursing Note INR: 3.5- in therapeutic range OF 2.5-3.5 Medications and supplements reviewed- NO changes No changes in health, diet, medications, or supplements, Denies any signs and symptoms of bleeding or bruising or clotting. 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
[2024-12-20 14:27] LABS: Prothrombin Time Whole Bld POC 41.7 sec (11.1-13.5); ~PT, ~INR - Anti Coag Clinic 3.5 (0.9-1.1)
--- OUTSIDE RECORDS SUMMARY | 2024-12-20 14:59 | XMS_ITS | Encounter Summary ---
Author Organization [facility] Address [address] [place] [address] Phone Care Team Providers Care Filler Spreader Name Role Phone Cindi [place] MD Primary Care Provider [phone] Pito Maya DO Primary Care Provider [phone] Encounter Details Date Type Department Care Team (Late st Contact Info) Description 09/24/2022 Procedure Pass Echo Lab [place] [place] [address] Social History Tobacco Use Types Packs/Day Years Used Date Smoking Tobacco: Light Smoker Smokeless Tobacco: Never Comments:occasional cigar Alcohol Use Standard Drinks/Week Comments Yes 4 (1 standard drink = 0.6 oz pur e alcohol) social drinker Education Answer Date Recorded Are you interested in more education? Not on john e 09/24/2022 Are you concerned about learning? Not on file 09/24/2022 No 09/24/2022 No 09/24/2022 Sex and Gender Information Value Date Recorded Sex Assigned at Male 11/04/2017 9:36 AM EDT Legal Sex Male 9:51 PM EDT Gender Identity Male 11/04/2017 9:36 AM EDT Sexual Orientation Straight 08/31/2018 6: 39 PM EDT documented as of this encounter Plan of Treatment Upcoming Encounters Date Type Department Care Team (Late st Contact Info) Description 03/13/2025 2:40 PM EDT Office Visit [facility] [address] Floor, [address] [place], [place] [id number] Hugo Barrios MD 22 [facility] [address] [place] [address] [email or web address] documented as of this encounter Visit Diagnoses Not on filedocumented in this encounter Care Teams Filler Spreader Relationship Specialty Start Date End Date Cindi [place] MD [address] [place] [address] [email or web address] PCP - General Family Medicine 09/19/2109/20 Pito Maya DO [address] [address] PCP - General Family Medicine 09/22/23 documented as of this encounter Additional Source Comments The information contained in this document represents components of the legal health record. It is not the complete legal health record.[facility]
--- OUTSIDE RECORDS SUMMARY | 2024-12-20 14:59 | XMS_ITS | Encounter Summary ---
Author Organization [facility], Address [address] [place] [address] Phone Care Team Providers Care Environmental Field Team Member Name Role Phone Cindi [place] MD Primary Care Provider [phone] Encounter Details Date Type Department Care Team (Late st Contact Info) Description 08/05/2022 Documentation Only [facility], [facility] [address] [place] [phone] Cindi [place] MD [address] [place], [place] [id number] Social History Tobacco Use Types Packs/Day Years [...] 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
== END 2024-12-20 15:17 | disposition home or self-care (01) ==
LOC: HO.ACS 14:18
PROVIDERS: PCP Family Medicine; Visit Provider Internal Medicine Medical Oncology
DX: Z79.01 Long term (current) use of anticoagulants (principal)

== ENCOUNTER → 2024-12-20 14:18 | Outpatient (BNVA) | payer BC, SELFPAY | PROVIDERS: PCP Family Medicine; Visit Provider Internal Medicine Medical Oncology | DX: Z95.2 Presence of prosthetic heart valve (principal); Z79.01 Long term (current) use of anticoagulants; Z51.81 Encounter for therapeutic drug level monitoring | CPT/HCPCS: 85610; 99211 ==

== ENCOUNTER 2025-01-10 15:05 | Outpatient (AMB) | payer BC, SELFPAY ==
--- OUTSIDE RECORDS SUMMARY | 2025-01-10 15:07 | XMS_ITS | Encounter Summary ---
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
--- OUTSIDE RECORDS SUMMARY | 2025-01-10 15:07 | XMS_ITS | Encounter Summary ---
Author Organization [facility] Address [address] [place] [address] Phone Care Team Providers Care Welding Specialist Name Role Phone Cindi [place] MD Primary Care Provider [phone] Pito Maya DO Primary Care Provider [phone] Encounter Details Date Type Department Care Team (Late st Contact Info) Description 09/24/2022 Procedure Pass Echo Lab [address] [place] [address] Social History Tobacco Use Types Packs/Day Years [...] Description 03/13/2025 2:40 PM EDT Office Visit [facility] [address] Floor, [address] [place], [place] [phone] Hugo Barrios MD 22 [facility] [address] [place] [address] [email or web address] documented as of this encounter Visit Diagnoses Not on filedocumented in this encounter Care Teams Welding Specialist Relationship Specialty Start Date End Date Cindi [place] MD [address] [place] [address] [email or web address] PCP - General Family Medicine 09/19/2109/20 Pito Maya DO [address] [address] PCP - General Family Medicine 09/22/23 documented as of this encounter Additional Source Comments The information contained in this document represents components of the legal health record. It is not the complete legal health record.[facility]
--- NOTE | 2025-01-10 15:13 | MHC.OFFVISCO ---
Intake Intake Visit Reasons: Anticoagulation Allergies meperidine (From Demerol) Allergy (Severe, Verified 01/10/25 15:07) DIFF BREATHING clopidogrel (From Plavix) Allergy (Intermediate, Verified 01/10/25 15:07) EDEMA allopurinol Allergy (Intermediate, Uncoded 01/10/25 15:07) Hives contrast dye Adverse Reaction (Intermediate, Uncoded 01/10/25 15:07) Hives Medication List - Last Reconciled 01/10/25 by Blanca Pavon RN amoxicillin 2,000 mg PO ONCE PRN aspirin (Adult Low Dose Aspirin) 81 mg PO DAILY fenofibrate micronized 134 mg PO DAILY hydrochlorothiazide 25 mg PO DAILY insulin glargine (Lantus Solostar U-100 Insulin) subcut every morning; metformin ER 1,500 mg PO DAILY metoprolol tartrate 100 mg PO BID metronidazole 1% topical mupirocin 2% 1 appl topical TID pen needle, diabetic As directed rosuvastatin 40 mg PO DAILY semaglutide 0.5 mg subcut QWEEK sildenafil mg PO triamcinolone acetonide 0.1% appl topical warfarin 4 mg See Protocol PO DAILY Nursing Note INR: 2.8- in therapeutic range of 2.5-3.5 Medications and supplements reviewed No changes in health, diet, medications, or supplements, Denies any signs and symptoms of bleeding or bruising or clotting. 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
[2025-01-10 15:14] LABS: Prothrombin Time Whole Bld POC 33.7 sec (11.1-13.5); ~PT, ~INR - Anti Coag Clinic 2.8 (0.9-1.1)
== END 2025-01-10 15:18 | disposition home or self-care (01) ==
LOC: HO.ACS 15:05
PROVIDERS: PCP Family Medicine; Visit Provider Internal Medicine Medical Oncology
DX: Z79.01 Long term (current) use of anticoagulants (principal)

== ENCOUNTER → 2025-01-10 15:05 | Outpatient (BNVA) | payer BC, SELFPAY | PROVIDERS: PCP Family Medicine; Visit Provider Internal Medicine Medical Oncology | DX: Z51.81 Encounter for therapeutic drug level monitoring (principal); Z79.01 Long term (current) use of anticoagulants | CPT/HCPCS: 85610; 99211 ==

== ENCOUNTER 2025-01-30 14:52 | Outpatient (AMB) | payer BC, SELFPAY ==
--- NOTE | 2025-01-30 14:57 | MHC.OFFVISCO ---
Intake Intake Visit Reasons: Anticoagulation Allergies meperidine (From Demerol) Allergy (Severe, Verified 01/30/25 14:57) DIFF BREATHING clopidogrel (From Plavix) Allergy (Intermediate, Verified 01/30/25 14:57) EDEMA allopurinol Allergy (Intermediate, Uncoded 01/10/25 15:07) Hives contrast dye Adverse Reaction (Intermediate, Uncoded 01/10/25 15:07) Hives Medication List - Last Reconciled 01/30/25 by Ruby Dick RN amoxicillin 2,000 mg PO ONCE PRN aspirin (Adult Low Dose Aspirin) 81 mg PO DAILY fenofibrate micronized 134 mg PO DAILY hydrochlorothiazide 25 mg PO DAILY insulin glargine (Lantus Solostar U-100 Insulin) subcut every morning; metformin ER 1,500 mg PO DAILY metoprolol tartrate 100 mg PO BID metronidazole 1% topical mupirocin 2% 1 appl topical TID pen needle, diabetic As directed rosuvastatin 40 mg PO DAILY semaglutide 0.5 mg subcut QWEEK sildenafil mg PO triamcinolone acetonide 0.1% appl topical warfarin 4 mg See Protocol PO DAILY Nursing Note NO CP,SOB,DIET/MED CHANGES,FALLS OR OF BLEEDING. CONTINUE PRESENT DOSE AND FOLLOW-UP IN 4 WEEKS [place] TODAY GOOD UNDERSTANDING OF DOSING INSTR. Coding Level of Care Code Est Patient Level 1 Diagnoses Current use of anticoagulant therapy Z79.01 Assessment & Plan Assessment & Plan (1) Current use of anticoagulant therapy: Code(s): Z79.01 - jail (current) use of anticoagulants Category: Medical
[2025-01-30 15:02] LABS: Prothrombin Time Whole Bld POC 44.4 sec (11.1-13.5); ~PT, ~INR - Anti Coag Clinic 3.7 (0.9-1.1)
--- OUTSIDE RECORDS SUMMARY | 2025-01-30 16:06 | XMS_ITS | Encounter Summary ---
Author Organization [facility] Address [address] [place] [address] Phone Care Team Providers Care Oil Process Stillman Name Role Phone Cindi [place] MD Primary Care Provider [phone] Pito Maya DO Primary Care Provider [phone] Encounter Details Date Type Department Care Team (Late st Contact Info) Description 09/24/2022 Procedure Pass Echo Lab [place] [place] [address] Social History Tobacco Use Types Packs/Day Years [...] Description 03/13/2025 2:40 PM EDT Office Visit [facility] [address], [address] [place], [place] [phone] Hugo Barrios MD 22 [facility] [address] [place] [address] [email or web address] documented as of this encounter Visit Diagnoses Not on filedocumented in this encounter Care Teams Oil Process Stillman Relationship Specialty Start Date End Date Cindi [place] MD [address] [place] [address] [email or web address] PCP - General Family Medicine 09/19/2109/20 Pito Maya DO [address] [address] PCP - General Family Medicine 09/22/23 documented as of this encounter Additional Source Comments The information contained in this document represents components of the legal health record. It is not the complete legal health record.[facility]
--- OUTSIDE RECORDS SUMMARY | 2025-01-30 16:07 | XMS_ITS | Encounter Summary ---
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
--- OUTSIDE RECORDS SUMMARY | 2025-01-30 16:07 | XMS_ITS | Encounter Summary ---
Author Organization [facility] Address [address] [facility] [address] [place] [address] Phone Care Team Providers Care Senior Java Data Architect Name Role Phone NachoRichardson hicks Primary Care Provider [phone] Najma Jung MD Primary Care Provider Cindi [place] MD Primary Care Provider [phone] Pito Maya DO Primary Care Provider Encounter Details Date Type Department Care Team (Late Contact Info) Description 10/09/2020 Procedure Pass [facility] Endoscopy Admitting Dept Virtual Department [address] [place] [address] Social History Tobacco Use Types Packs/Day Years Used Date Smoking Tobacco: Light Smoker Smokeless Tobacco: Never Comments:occasional cigar Alcohol Use Standard Drinks/Week Comments Yes 4 (1 standard drink = 0.6 oz pur e alcohol) social drinker Sex and Gender Information Value Date Recorded Sex Assigned at Male 11/04/2017 9:36 AM EDT Legal Sex Male 9:51 PM EDT Gender Identity Male 11/04/2017 9:36 AM EDT Sexual Orientation Straight 08/31/2018 6: 39 PM EDT documented as of this encounter Plan of Treatment Upcoming Encounters Date Type Department Care Team (Late Contact Info) Description 03/13/2025 2:40 PM EDT Office Visit [facility] [address] [place] [address] 3rd Floor, [address] [place] [address] Hugo Barrios MD 22 [facility] [address] [place] [address] [email or web address] documented as of this encounter Visit Diagnoses Not on filedocumented in this encounter Care Teams Senior Java Data Architect Relationship Specialty Start Date End Date Richardson Griffith DO [address] [place] [address] [email or web address] PCP - General Family Medicine 04/07/19 08/19/21 Najma Jung MD [address] [place] [address] PCP - General Family Medicine 08/20/21 09/18/21 Cindi [place] MD [address] [place] [address] [email or web address] PCP - General Family Medicine 09/19/2109/20 Pito Maya DO [address] [place] [address] PCP - General Family Medicine 09/22/23 documented as of this encounter Additional Source Comments The information contained in this document represents components of the legal health record. It is not the complete legal health record.[facility]
--- OUTSIDE RECORDS SUMMARY | 2025-01-30 16:07 | XMS_ITS | Encounter Summary ---
Author Organization [facility] Address [address] [place] [address] Phone Care Team Providers Care Neon Molder Name Role Phone Cindi [place] MD Primary Care Provider [phone] Pito Maya DO Primary Care Provider [phone] Encounter Details Date Type Department Care Team (Late st Contact Info) Description 03/25/2022 Procedure Pass Echo Lab [place] [place] [address] Social History Tobacco Use Types Packs/Day Years [...] Description 03/13/2025 2:40 PM EDT Office Visit [facility] [address] [place] [address] 3rd Floor, [address] [place] [address] Hugo Barrios MD 22 [facility], [address] [place] [address] documented as of this encounter Visit Diagnoses Not on filedocumented in this encounter Care Teams Neon Molder Relationship Specialty Start Date End Date Cindi [place] MD [address] [place] [address] [email or web address] PCP - General Family Medicine 09/19/2109/20 Pito Maya DO [address] [address] PCP - General Family Medicine 09/22/23 documented as of this encounter Additional Source Comments The information contained in this document represents components of the legal health record. It is not the complete legal health record.[facility]
--- OUTSIDE RECORDS SUMMARY | 2025-01-30 16:07 | XMS_ITS | Encounter Summary ---
Author Organization [facility] Address [address] [place] [address] Phone Care Team Providers Care Equipment Sterilizer Name Role Phone NachoRichardson hicks Primary Care Provider Najma Jung MD Primary Care Provider Cindi [place] MD Primary Care Provider [phone] Pito Maya DO Primary Care Provider [phone] Encounter Details Date Type Department Care Team (Late st Contact Info) Description 02/27/2021 Procedure Pass Echo Lab [place] [place] [address] Social History Tobacco Use Types Packs/Day Years [...] Description 03/13/2025 2:40 PM EDT Office Visit [facility] [address] [place] [address] 3rd Floor, [address] [place] [address] Hugo Barrios MD [address] [place] [address], [address] [place] [address] [place] [address] [email or web address] documented as of this encounter Visit Diagnoses Not on filedocumented in this encounter Care Teams Equipment Sterilizer Relationship Specialty Start Date End Date Richardson Griffith DO [address] [place] [address] La [email or web address] PCP - General Family Medicine 04/07/19 08/19/21 Najma Jung MD [address] [place] [address] PCP - General Family Medicine 08/20/21 09/18/21 Cindi [place] MD [address] [place] [address] [email or web address] PCP - General Family Medicine 09/19/2109/20 Pito Maya DO [address] [address] PCP - General Family Medicine 09/22/23 documented as of this encounter Additional Source Comments The information contained in this document represents components of the legal health record. It is not the complete legal health record.[facility]
--- OUTSIDE RECORDS SUMMARY | 2025-01-30 16:07 | XMS_ITS | Clinical Summary ---
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
--- OUTSIDE RECORDS SUMMARY | 2025-01-30 16:07 | XMS_ITS | Encounter Summary ---
Author Organization [facility] Address [address] [place] [address] [place] [address] Phone Care Team Providers Care Engineer Third Assistant Name Role Phone Purling, Pito Lubin DO Primary Care Provider Encounter Details Date Type Department Care Team (Late Contact Info) Description 09/22/2023 Procedure Pass Echo Lab [address] [place] [address] Social History Tobacco Use Types Packs/Day Years [...] on file 09/24/2022 No 09/24/2022 No 09/24/2022 Digital Access Answer Date Recorded No 10/24/2022 No 10/24/2022 Reliable internet access at home? Not on file 10/24/2022 Device with a working camera? Not on file Sex and Gender Information Value Date Recorded Sex Assigned at Male 11/04/2017 9:36 AM EDT Legal Sex Male 9:51 PM EDT Gender Identity Male 11/04/2017 9:36 AM EDT Sexual Orientation Straight 08/31/2018 6: 39 PM EDT documented as of this encounter Plan of Treatment Upcoming Encounters Date Type Department Care Team (Late Contact Info) Description 03/13/2025 2:40 PM EDT Office Visit [facility] [address] [facility] 3rd Floor, [address] [place] [address] Hugo Barrios MD 22 [facility], [address] [place] [address] [email or web address] documented as of this encounter Visit Diagnoses Not on filedocumented in this encounter Care Teams Engineer Third Assistant Relationship Specialty Start Date End Date Pito Maya DO [facility] [address] [place] [address] PCP - General Family Medicine 09/22/23 documented as of this encounter Additional Source Comments The information contained in this document represents components of the legal health record. It is not the complete legal health record.[facility]
--- OUTSIDE RECORDS SUMMARY | 2025-01-30 16:07 | XMS_ITS | Clinical Summary ---
Author Organization [facility] Address [address] [facility] [address] [place] [phone] Phone Care Team Providers Care Desk Manager Name Role Phone Pito Maya DO Primary Care Provider Allergies Active Allergy Reactions Criticality Noted Date Comments Allopurinol Hives 05/06/2021 Atorvastatin Hives 05/06/2021 Meperidine Anaphylaxis High 07/06/2017 Iodinated Contrast Media 05/06/2021 Other reaction(s): Unknown Clopidogrel 11/04/2017 Medications metFORMIN (GLUCOPHAGE-XR) 750 MG 24 hr tablet Take 750 mg by mouth 2 (two) times a day. Active rosuvastatin (CRESTOR) 40 MG tablet Take 40 mg by mouth daily. Active warfarin (COUMADIN) 4 MG tablet Take 4 mg by mouth daily. Active metoprolol tartrate (LOPRESSOR) 100 MG tablet Take 100 mg by mouth 2 (two) times a day. Active fenofibrate micronized (LOFIBRA) 134 mg capsule Take 1 capsule (134 mg total) by mouth daily before breakfast. 90 capsule 3 9 Active semaglutide (OZEMPIC) 0.25 mg or 0.5 mg(2 mg/1.5 mL) subcutaneous injection pen Inject 0.5 mg under the skin every 7 days. Active aspirin 81 MG EC tablet Take 81 mg by mouth daily. Active hydroCHLOROthiaz pamela (HYDRODIURIL) 25 MG tablet Take 25 mg by mouth daily. 2 Active LANTUS SOLOSTAR U-100 INSULIN 100 unit/mL (3 mL) InPn injection pen Inject 30 Units under the skin nightly at bedtime. 2 Active metroNIDAZOLE (METROGEL) 1 % gel Apply 1 Application topically as needed. Active BD NIKOLE 2ND GEN PEN NEEDLE 32 gauge x 5/32 Ndle USE DIRECTED WITH FLEXPEN 3 Active amoxicillin (AMOXIL) 500 MG capsule Take 2,000 mg by mouth as needed (1 hour prior to dental). Active acetaminophen (TYLENOL) [address] 325 mg rectally every 4 (four) hours as needed for fever. Active Active Problems Problem Noted Date Diagnosed Date Mitral valve insufficiency 03/25/2022 Assessment & Plan (03/24/2023 3:29 PM EDT): Echocardiogram showed a little bit of mitral valve regurgitation and mild mitral stenosis. We will recheck an echocardiogram next year before his next follow-up with Dr. Barrios. Assessment & Plan (03/25/2022 3:37 PM EDT): His most recent echocardiogram showed a little bit of mitral valve regurgitation and mild mitral stenosis. We will recheck an echocardiogram next year. Pre-operative cardiovascular examination 019 Assessment & Plan (02/09/2019 4:23 PM EDT): Patient is scheduled to have risk surgery on Wednesday. In terms of his cardiac risk factors he does have a history of hypertension, he is moderately controlled on his current regimen. He has history of high cholesterol for which she is appropriately on fenofibrate. He is a diabetic and is controlled with insulin. He does have elevated BMI. He smokes occasional cigar and drinks about 2 drinks a week. Do not have recent BMP, but he has no history of kidney disease. He has no symptoms of CHF. He does have known coronary disease for which he is currently on appropriate medications and not exhibiting symptoms of. He can complete 4 METS of activity easily. I see no cardiac contraindication from having his upcoming carpal tunnel wrist surgery, he would be low to moderate risk for intra-or perioperative cardiac complications. He is already appropriately going to be bridged, his warfarin should resume as soon as his surgeon feels it is safe to do so. Paroxysmal supraventricular tachycardia 11/12/19 19 Overview (04/07/2019): 09/2018 EVENT MONITOR There are runs of a supraventricular tachycardia the longest being about 19 beats at a rate of 157. There are multiple other runs. Some of them look like SVT with aberrancy versus slower ventricular tachycardia. There did appear to be a 4 beat run of nonsustained ventricular tachycardia. Assessment & Plan (03/25/2022 3:37 PM EDT): No symptoms. Assessment & Plan (09/19/2021 2:34 PM EDT): Denies palpitations. No recurrence at this point. Monitor and follow-up as needed. Syncope 09/01/2018 Assessment & Plan (04/07/2019 4:16 PM EST): No recurrences. Assessment & Plan (02/09/2019 4:20 PM EDT): No recurrence of this since August. Assessment & Plan (09/12/2018 3:28 PM EDT): Patient had a recent admission at [facility] for a syncopal episode. It was felt this was likely vasovagal in the setting of dehydration. He denies any recurrent episodes of syncope, dizziness, or lightheadedness. I have encouraged adequate hydration. Assessment & Plan (09/01/2018 5:18 PM EDT): This patient with known coronary artery disease presents with an episode of posterior neck discomfort followed by a brief syncopal or presyncopal episode. This all followed a very long car ride, a drink of whiskey, smoking some pot and eating a large steak and cheese plate glass grinder. PE is less likely as the pt is anticoagulated with his current INR 5.5. He was seen by Cardiology whom felt his symptoms were to be from a vasovagal event. No findings on tele-monitor. Pt has been asymptomatic since arrival. -echo results pending -cardiology to follow Well controlled type 2 diabetes mellitus 019 Assessment & Plan (02/09/2019 4:21 PM EDT): I do not have a recent A1c. Patient reports this is well controlled. He does continue with daily Levemir. Assessment & Plan (09/01/2018 5:16 PM EDT): Continue levemir 30 units sc daily POCs with meals Diabetic diet Coronary artery disease invo lving sleetmute coronary artery of sleetmute heart without angina pectoris 06/01/2017 Overview (04/07/2019): 01/2016 CABG/AVR [place]; SVG-RCA; SVG-OM; [facility] 08/2018 ECHO The predominant rhythm during the study was sinus. Left ventricular cavity size is normal and the left ventricular wall thickness is increased. There is mild concentric left ventricular hypertrophy. Left ventricular systolic function is normal. There are no segmental left ventricular wall motion abnormalities noted. The estimated ejection fraction is 60% (Normal 50-75%). The left ventricular ejection fraction was measured by the single plane method of discs. The prosthetic valve is not well visualized. There is a bileaflet tilting disc mechanical valve in the aortic position. The valve acid regenerator is [employer]. Adam #23. The peak gradient is 22 mmHg. The mean gradient is 10 mmHg. The gradients appear normal for this valve. Peak velocity 2.4 m/s. The peak aortic valve gradient is 22 mmHg. The mean aortic gradient is 11 mmHg. There is evidence of mild mitral stenosis. The peak trans mitral valve gradient is 8 mmHg. The mean trans mitral valve gradient is 4 mmHg. There is an insufficient tricuspid regurgitation Doppler profile to calculate a right ventricular systolic pressure. Compared to a prior report from 04/28/2016, no important changes. Assessment & Plan (03/24/2023 3:30 PM EDT): He has a history of coronary artery disease and had coronary artery bypass grafting years ago. He has felt well with no chest pain or any other symptoms which are concerning for ischemia. We will continue to optimize his risk factors. Blood pressure in the office today is adequately controlled. Continue statin. He will get a lipid panel. Continue aspirin. Assessment & Plan (03/25/2022 3:34 PM EDT): He has a history of coronary artery disease and had coronary artery bypass grafting 8 years ago. He has felt well. He has not had any chest pain or shortness of breath. We will continue to optimize his risk factors. Blood pressure in the office today is adequately controlled. Continue with current dose of rosuvastatin. He will recheck a lipid panel. Assessment & Plan (09/19/2021 2:32 PM EDT): Stable. Asymptomatic. Continue to optimize cardiovascular risk factors. Assessment & Plan (02/07/2020 4:26 PM EDT): Asymptomatic. Would suggest repeat echocardiogram in about a year. He will follow-up with 1 of my colleagues due to my pending penitentiary. Assessment & Plan (10/10/2019 3:37 PM EDT): Doing well. Asymptomatic. Assessment & Plan (04/07/2019 4:16 PM EST): Asymptomatic without limitations. Over time I may want to decrease his metoprolol so we can go either once or twice a day. For now we will leave things as is because of his brief episodes of supraventricular tachycardia seen on his event monitor. Assessment & Plan (02/09/2019 4:19 PM EDT): He is not reporting any symptoms concerning for angina. His nuclear stress showed transient ischemic dilation, not clear if this is truly significant ischemia. We will continue to optimize his risk factors as he is not having any symptoms. Assessment & Plan (01/04/2019 4:36 PM EDT): I am not convinced that he has significant ischemic issues but I would like to follow him a little more closely so I will bring him back in several months. I will hold his isosorbide for now and he will call if anything changes. Assessment & Plan (09/12/2018 3:31 PM EDT): Currently denying any exertional symptoms or symptoms concerning for angina. Most recent ECG showing sinus rhythm with left bundle branch block Troponins flat while admitted at [facility] Has not had a stress test in some time will order a pharmacologic nuclear stress test for some reassurance as his is concerned that his syncope may in fact be due to blockage. Assessment & Plan (06/28/2018 9:02 AM EST): Asymptomatic. Medications appropriate. Last echocardiogram was about 2 years ago. Would repeat again in about another year. ECG reveals sinus rhythm with left bundle branch block. This is unchanged. Heart rate was 70 and there was no ectopy. Assessment & Plan (07/06/2017 8:53 AM EST): Doing well. No clinical issues. I've encouraged him to become more active. His weight is up about 11 pounds. History of mechanical aortic valve replacement 0 06/01/2017 Overview (04/07/2019): 08/2018 ECHO The predominant rhythm during the study was sinus. Left ventricular cavity size is normal and the left ventricular wall thickness is increased. There is mild concentric left ventricular hypertrophy. Left ventricular systolic function is normal. There are no segmental left ventricular wall motion abnormalities noted. The estimated ejection fraction is 60% (Normal 50-75%). The left ventricular ejection fraction was measured by the single plane method of discs. The prosthetic valve is not well visualized. There is a bileaflet tilting disc mechanical valve in the aortic position. The valve acid regenerator is [employer]. Adam #23. The peak gradient is 22 mmHg. The mean gradient is 10 mmHg. The gradients appear normal for this valve. Peak velocity 2.4 m/s. The peak aortic valve gradient is 22 mmHg. The mean aortic gradient is 11 mmHg. There is evidence of mild mitral stenosis. The peak trans mitral valve gradient is 8 mmHg. The mean trans mitral valve gradient is 4 mmHg. There is an insufficient tricuspid regurgitation Doppler profile to calculate a right ventricular systolic pressure. Compared to a prior report from 04/28/2016, no important changes. Assessment & Plan (03/24/2023 3:30 PM EDT): He had a mechanical aortic valve replacement. Most recent echocardiogram showed that his valve is functioning properly. He will have an echocardiogram before his next follow-up with Dr. Barrios. He reports that he had a bleed in his brain. He tells me that his INR was elevated the week before but the week of his bleed, his INR was normal. He has not had any issues since then. He will continue to take Coumadin. Assessment & Plan (03/25/2022 3:36 PM EDT): He had a mechanical aortic valve replacement. His most recent echocardiogram shows that it is functioning properly although he does have aortic valve regurgitation. We will recheck an echocardiogram next year. He will then follow-up with Dr. Barrios. Assessment & Plan (09/19/2021 2:33 PM EDT): Echocardiogram 08/20/2021 overall left ventricular systolic function is normal with an EF between 60 to 65%. Physiologic regurgitation of the mechanical prosthetic aortic valve. Compared with the findings of the prior report of 09/06/2020, the velocity across the aortic prosthesis has decreased from 2.73 to 2.06 m/s. Assessment & Plan (10/10/2019 3:37 PM EDT): Again asymptomatic. We will repeat his echo in a year or 2. Assessment & Plan (04/07/2019 4:16 PM EST): Functioning well on recent echocardiogram. Exam is unchanged. Assessment & Plan (02/09/2019 4:19 PM EDT): He is interacting on warfarin, he is in the process of holding this for his upcoming surgery. He is going to be bridging with Lovenox. He should resume warfarin as soon as his surgeons as it is safe to do so. Assessment & Plan (09/12/2018 3:29 PM EDT): He is anticoagulated with warfarin and is compliant INR monitoring. He will be on this for life. Assessment & Plan (09/01/2018 5:22 PM EDT): For his mechanical valve the patient is maintained on Coumadin he believes 6 mg Wednesday and 8 mg the remaining days. On the morning of August 31 he was about to board an airplane to fly home when his advised taking an extra 2 mg of Coumadin. With all of this his INR is elevated. INR today noted at 5.5. Hold coumadin Assessment & Plan (07/06/2017 8:53 AM EST): Functioning normally. Essential hypertension 06/01/2017 Assessment & Plan (03/24/2023 3:30 PM EDT): Normal. No medication changes. Assessment & Plan (03/25/2022 3:34 PM EDT): Blood pressure in the office today is adequately controlled. No medication changes. Assessment & Plan (09/19/2021 2:34 PM EDT): Good blood pressure control on current cardiac regimen. No indication for changes today. Assessment & Plan (02/07/2020 4:25 PM EDT): Elevated today. He recently bought a home device. I think his goal should be a systolic of around 120 and I have pushed his lisinopril to 40 mg a day. Assessment & Plan (10/10/2019 3:38 PM EDT): I have decreased his metoprolol to 100 mg twice a day and asked him to get a home blood pressure monitor. Aim is blood pressure 130/80 without episodes of supraventricular tachycardia. Assessment & Plan (04/07/2019 4:16 PM EST): Mildly elevated today. I have asked him to purchase a home device and begin to monitor his bedtime blood pressures. Goal for him should be 130 or less. Assessment & Plan (02/09/2019 4:20 PM EDT): Pressure little bit elevated during my visit today. He is not sure if he took his meds or not this morning. He showed me paperwork from a previous visit with his PCP where his blood pressure was exceptionally normal at 114/72, he tells me he smoked marijuana just before that appointment and thinks that may be why the blood pressures are low. I suspect he may run a bit on the high side. I have asked him to obtain a blood pressure cuff and monitor his blood pressure at home. If his systolic remains consistently above 140 we could double his lisinopril or consider adding HCTZ. Assessment & Plan (01/04/2019 4:36 PM EDT): Elevated today but typically 50 points lower. He will monitor peer Assessment & Plan (09/12/2018 3:27 PM EDT): Patient hypertensive in the office today. He reports that blood pressure was well controlled at PCP visit last week. I have asked him to obtain blood pressure cuff and monitor this daily for several weeks at home. If systolic readings greater than 130 to call the office and we will up titrate his lisinopril Assessment & Plan (09/01/2018 5:23 PM EDT): Pt was seen by cardiology whom confirmed his dosing of metoprolol. Continue metoprolol 100mg po tid Continue lisinopril 20mg po daily Assessment & Plan (06/28/2018 8:59 AM EST): Mildly elevated today. Will increase lisinopril to 20 mg a day. Assessment & Plan (07/06/2017 8:53 AM EST): Well-controlled. Hyperlipidemia 06/01/2017 Assessment & Plan (09/19/2021 2:35 PM EDT): Continue on statin therapy without change. Assessment & Plan (02/07/2020 4:26 PM EDT): Despite fenofibrate his triglycerides remain moderately high at around 350. LDL is 55 with HDL of 27. Renal and hepatic function are fine. Assessment & Plan (04/07/2019 4:17 PM EST): Recent profile includes an LDL of 63 with an HDL of 35. Triglycerides remain moderately elevated now at 321. He knows to watch his diet and alcohol consumption. Assessment & Plan (02/09/2019 4:21 PM EDT): Remains on fenofibrate. He is due for a repeat lab work before he sees Dr. Alston next. Assessment & Plan (01/04/2019 4:36 PM EDT): Remains on his statin and fenofibrate. I will have his labs repeated in 3 months. Assessment & Plan (09/12/2018 3:30 PM EDT): Remains on statin and fenofibrate, he tells me he is having fasting labs drawn in the next week or so I presum that this will include a lipid panel, we will try to get those records Assessment & Plan (06/28/2018 8:59 AM EST): Remains on his statin and fenofibrate. Will have labs drawn shortly and again in 6 months. Assessment & Plan (07/06/2017 8:54 AM EST): Triglycerides are now over 500. I have started him on fenofibrate in addition to his high-dose rosuvastatin. I've asked to have labs redrawn in several months. Immunizations Immunization Administration Dates Next Due COVID-19 (Pre-03/22) Moderna Vaccine, mRNA, PF 0 07/27/2020 INFLUENZA, SPLIT VIRUS, TRIVALENT PF 04/01/2017 Influenza Quadrivalent Preservative Free IM 12/30 Family History Medical History Relation Comments Aortic aneurysm Brother Heart disease Father Aortic aneurysm Maternal Uncle Aortic aneurysm Mother Valvular heart disease Mother Relation Status Comments Brother Father Maternal Uncle Mother Social History Tobacco Use Types Packs/Day Years Used Date Smoking Tobacco: Light Smoker Smokeless Tobacco: Never Tobacco Cessation:Ready to Q uit: Not Asked; Counseling Given: Not Answered Comments:occasional cigar Alcohol Use Standard Drinks/Week Comments [...] Orientation Straight 08/31/2018 6: 39 PM EDT Last Filed Vital Signs Vital Sign Reading Time Taken Comments Blood Pressure 144/78 09/05/2024 2:34 PM EDT Pulse 88 09/05/2024 2:34 PM EDT Temperature 36.4 C (97.5 F) 09/02/2018 12:19 PM EDT Respiratory Rate 18 09/02/2018 12:19 PM EDT Oxygen Saturation 97% 09/05/2024 2:34 PM EDT Inhaled Oxygen Concentration - - Weight 89.4 kg (197 lb) 09/05/2024 2:34 PM EDT Height 175.3 cm (5' 9.02 ) 09/05/2024 2:34 PM ED T Body Mass Index 29.07 09/05/2024 2:34 PM EDT Plan of Treatment Upcoming Encounters Date Type Department Care Team (Late st Contact Info) Description 03/13/2025 2:40 PM EDT Office Visit [facility] [address] [place] [address] 3rd Floor, [address] [place] [address] Hugo Barrios MD [address] [facility], [address] [place] [address] [email or web address] Health Maintenance Due Date Last Done Comments HEMOGLOBIN A1C 1958 DEPRESSION SCREENING 1970 SMOKING Hx and SMOKELESS TOBACCO SCREENING 1971 HEPATITIS C SCREENING 02/17/1976 PNEUMOCOCCAL VACCINES (50+ years) (1 of 2 - PCV) 1977 COLOGUARD 2003 COLONOSCOPY 2003 COLORECTAL CANCER SCREENING 2003 FIT TEST 2003 FOBT 2003 SIGMOIDOSCOPY 2003 VIRTUAL COLONOSCOPY 2003 ZOSTER VACCINES (1 of 2) 02/17/2008 DIABETIC EYE EXAM 11/28/2017 URINE MICROALBUMIN/CREATININE RATIO 11/28/2017 RSV VACCINE (1 - Risk 60-74 years 1-dose series) 2018 CREATININE LEVEL 02/02/2021 02/03/2020, 07/2019, 04/04/2019, Additional history exists ABDOMINAL AORTIC ANEURYSM (AAA) SCREENING 2023 INFLUENZA VACCINE (#1) 2024 01/22/2020, 2016 COVID-19 VACCINE (2 - season) 2025 07/27/2020 BLOOD PRESSURE 03/07/2025 09/05/2024 Adult Td,Tdap Booster 03/01/2032 03/01/2022, 015 HEPATITIS A VACCINES Aged Out No long er eligible based on patient's age to complete this topic HIB VACCINES Aged Out No longer eligi ble based on patient's age to complete this topic MENINGOCOCCAL VACCINES (ACWY) Aged Out No longer eligible based on patient's age to complete this topic MENINGOCOCCAL VACCINES (B) Aged Out N o longer eligible based on patient's age to complete this topic Medical Devices Not on file Procedures Procedure Name Priority Date/Time Associated Diagnosis Comments BASIC METABOLIC PANEL Routine 02/03/2020 8:52 AM EDT Pure hypercholesterolemia from Last 3 Months or Most Recently Relevant to Health Maintenance Results * (ABNORMAL) Basic metabolic panel (02/03/2020 8:52 AM EDT) SODIUM 137 133 - 146 mmol/L [facility] CHLORIDE 104 96 - 108 mmol/L [facility] POTASSIUM 4.7 3.3 - 5.1 mmol/L [facility] CO2 26 21 - 35 mmol/L [facility] BUN 21(H) 6 - 19 mg/dL [facility] CREATININE 1.10 0.5 - 1.5 mg/dL [facility] GLUCOSE 165(H) 70 - 99 mg/dL [facility] CALCIUM 9.2 8.4 - 10.3 mg/dL [facility] EGFR 72 >59 mL/min/1.7 3m2 [facility] Comment:Estimated glomerular filtration rate calculated using the CKD-EPI equation. ANION GAP 12 10 - 20 mmol/L [facility] Blood 02/03/2020 8:52 AM EDT 02/03/2020 8:55 AM EDT us Yahir Alston MD LAB BLOOD ORDERABLES Final Resu lt [facility] [address] [place] [address] from Last 3 Months or Most Recently Relevant to Health Maintenance Insurance BLUE CROSS OUT OF STATE PPO MEDICARE A [facility] OUT OF [facility] PPO MEDICARE A [place] OUT OF STATE PPO [place] OUT OF STATE PPO [place] OUT OF STATE PPO MEDICARE A [place] OUT OF [facility] PPO BL[place] OUT OF STATE PPO MEDICARE A [address] [place], [place] [id number] [place] [address] OUT [facility] PPO MEDICARE A BLUE [place] OUT OF STATE PPO MEDICARE A Advance Directives For more information, please contact: [phone] (9AM - 5PM [facility], Wednesday-Wednesday) * Full Code (Presumed) (Latest Code Status on File) Date Activated Date Inactivated Comments 09/01/2018 1:55 AM 09/02/2018 3:30 PM Care Teams Desk Manager Relationship Specialty Start Date End Date [facility] [address] [address] PCP - General Family Medicine 09/22/23 Additional Source Comments The information contained in this document represents components of the legal health record. It is not the complete legal health record.[facility]
--- OUTSIDE RECORDS SUMMARY | 2025-01-30 16:07 | XMS_ITS | Encounter Summary ---
Author Organization [facility] Address [address] [place] [address] Phone Care Team Providers Care Driving School Instructor Name Role Phone NachoRichardson hicks Primary Care Provider Najma Jung MD Primary Care Provider Cindi Houston MD Primary Care Provider [phone] Pito Maya DO Primary Care Provider Encounter Details Date Type Department Care Team (Late st Contact Info) Description 08/07/2020 Procedure Pass Echo [facility] [place] [address] Social History Tobacco Use Types [...] Description 03/13/2025 2:40 PM EDT Office Visit [facility] [address] [place] [address] [address]rd Floor, [address] [place], [place] [id number] Hugo Barrios MD [address] [place] [address], [address] [place] [address] [place] [address] [email or web address] documented as of this encounter Visit Diagnoses Not on filedocumented in this encounter Care Teams Driving School Instructor Relationship Specialty Start Date End Date Richardson Griffith DO [address] [place] [phone] [email or web address] PCP - General Family Medicine 04/07/19 08/19/21 Najma Jung MD [address] [place] [address] PCP - General Family Medicine 08/20/21 09/18/21 Cindi Houston MD [address] [place] [address] [email or web address] PCP - General Family Medicine 09/19/2109/20 Pito Maya DO [address] [address] PCP - General Family Medicine 09/22/23 documented as of this encounter Additional Source Comments The information contained in this document represents components of the legal health record. It is not the complete legal health record.[facility]
== END 2025-01-30 15:08 | disposition home or self-care (01) ==
LOC: HO.ACS 14:52
PROVIDERS: PCP Family Medicine; Visit Provider Internal Medicine Medical Oncology
DX: Z79.01 Long term (current) use of anticoagulants (principal)

== ENCOUNTER → 2025-01-30 14:52 | Outpatient (BNVA) | payer BC, SELFPAY | PROVIDERS: PCP Family Medicine; Visit Provider Internal Medicine Medical Oncology | DX: Z51.81 Encounter for therapeutic drug level monitoring (principal); Z79.01 Long term (current) use of anticoagulants | CPT/HCPCS: 85610; 99211 ==

== ENCOUNTER 2025-02-28 13:59 | Outpatient (AMB) | payer BC, SELFPAY ==
[2025-02-28 14:06] LABS: Prothrombin Time Whole Bld POC 43.3 sec (11.1-13.5); ~PT, ~INR - Anti Coag Clinic 3.6 (0.9-1.1)
--- NOTE | 2025-02-28 14:15 | MHC.OFFVISCO ---
Intake Intake Visit Reasons: Anticoagulation Allergies meperidine (From Demerol) Allergy (Severe, Verified 02/28/25 14:00) DIFF BREATHING clopidogrel (From Plavix) Allergy (Intermediate, Verified 02/28/25 14:00) EDEMA allopurinol Allergy (Intermediate, Uncoded 01/10/25 15:07) Hives contrast dye Adverse Reaction (Intermediate, Uncoded 01/10/25 15:07) Hives Medication List - Last Reconciled 02/28/25 by Ruby Dick RN amoxicillin 2,000 mg PO ONCE PRN aspirin (Adult Low Dose Aspirin) 81 mg PO DAILY fenofibrate micronized 134 mg PO DAILY hydrochlorothiazide 25 mg PO DAILY insulin glargine (Lantus Solostar U-100 Insulin) subcut every morning; metformin ER 1,500 mg PO DAILY metoprolol tartrate 100 mg PO BID metronidazole 1% topical mupirocin 2% 1 appl topical TID pen needle, diabetic As directed rosuvastatin 40 mg PO DAILY semaglutide 0.5 mg subcut QWEEK sildenafil mg PO triamcinolone acetonide 0.1% appl topical warfarin 4 mg See Protocol PO DAILY Nursing Note NO CP,SOB,DIET/MED CHANGES,FALLS OR SX OF BLEEDING. CONTINUIE PRESENT DOSE AND FOLLOW-UP IN 4 WEEKS GOOD UNDERSTANDING OF DOSING INSTR. Coding Level of Care Code Est Patient Level 1 Diagnoses Current use of anticoagulant therapy Z79.01 Assessment & Plan Assessment & Plan (1) Current use of anticoagulant therapy: Code(s): Z79.01 - intermediate frame tender (current) use of anticoagulants Category: Medical
--- OUTSIDE RECORDS SUMMARY | 2025-02-28 15:12 | XMS_ITS | Clinical Summary ---
Author Organization [facility] Address [address] [facility] [address] [place] [address] Phone Care Team Providers Care Clinical Law Professor Name Role Phone Pito Maya DO Primary Care Provider [phone] Allergies Active Allergy Reactions Criticality Noted Date [...] EDT): Patient had a recent admission at [facility] for a syncopal episode. 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 PE is less likely as the pt [...] Diabetic diet Coronary artery disease invo lving [place] coronary artery of [place] heart without angina pectoris 06/01/2017 Overview (04/07/2019): [...] valve in the aortic position. The valve lockstitch waistline joiner is [employer]. Adam #23. The peak gradient [...] of my colleagues due to my pending halfway. Assessment & Plan (10/10/2019 3:37 PM EDT): [...] branch block Troponins flat while admitted at [facility] Has not had a stress test in [...] valve in the aortic position. The valve lockstitch waistline joiner is St. Adam #23. The peak gradient [...] Description 03/13/2025 2:40 PM EDT Office Visit [facility] [address] [place] [address] 3rd Floor, [address] [place] [address] Hugo Barrios MD [address] [facility], [address] [place] [address] [email or web address] Health Maintenance Due Date Last Done Comments [...] EDT) SODIUM 137 133 - 146 mmol/L [facility] CHLORIDE 104 96 - 108 mmol/L [facility] POTASSIUM 4.7 3.3 - 5.1 mmol/L [facility] CO2 26 21 - 35 mmol/L [facility] BUN 21(H) 6 - 19 mg/dL [facility] CREATININE 1.10 0.5 - 1.5 mg/dL [facility] GLUCOSE 165(H) 70 - 99 mg/dL [facility] CALCIUM 9.2 8.4 - 10.3 mg/dL [facility] EGFR 72 >59 mL/min/1.7 3m2 [facility] Comment:Estimated glomerular filtration rate calculated using the CKD-EPI equation. ANION GAP 12 10 - 20 mmol/L [facility] Blood 02/03/2020 8:52 AM EDT 02/03/2020 8:55 AM EDT us Yahir Alston MD LAB BLOOD ORDERABLES Final Resu lt [facility] [address] [place] [address] from Last 3 Months or Most Recently Relevant to Health Maintenance Insurance BLUE [employer]OSS OUT OF STATE PPO MEDICARE A [facility] OUT OF [facility] PPO MEDICARE A [employer] [place] OUT OF STATE PPO [employer] [place] OUT OF STATE PPO [place] [place] OUT OF STATE PPO MEDICARE A [place] [place] OUT OF [facility] PPO BLUE [place] OUT OF STATE PPO MEDICARE A [address] [place], [place] [id number] [place] [address] OUT [employer] PPO MEDICARE A [place]UE [place] OUT OF STATE PPO MEDICARE A Advance Directives For more information, please contact: [phone] (9AM - 5PM [facility], Wednesday-Wednesday) * Full Code (Presumed) (Latest Code Status on File) Date Activated Date Inactivated Comments 09/01/2018 1:55 AM 09/02/2018 3:30 PM Care Teams Clinical Law Professor Relationship Specialty Start Date End Date [facility] [address] [address] PCP - General Family Medicine 09/22/23 Additional Source Comments The information contained in this document represents components of the legal health record. It is not the complete legal health record.[facility]
--- OUTSIDE RECORDS SUMMARY | 2025-02-28 15:12 | XMS_ITS | Encounter Summary ---
Author Organization [facility] Address [address] [facility] [address] [place] [address] Phone Care Team Providers Care Board Setter Name Role Phone NachoRichardson hicks Primary Care Provider [phone] Najma Jung MD Primary Care Provider Cindi Houston MD Primary Care Provider [phone] Pito Maya DO Primary Care Provider Encounter Details Date Type Department Care Team (Late Contact Info) Description 10/09/2020 Procedure Pass [facility] Endoscopy Admitting Dept Virtual Department [address] [place] [address] Social History Tobacco Use Types Packs/Day Years [...] Description 03/13/2025 2:40 PM EDT Office Visit [facility] [address] [place] [address] 3rd Floor, [address] [place] [address] Hugo Barrios MD [address] [facility] [address] [place] [address] [email or web address] documented as of this encounter Visit Diagnoses Not on filedocumented in this encounter Care Teams Board Setter Relationship Specialty Start Date End Date Richardson Griffith DO [address] [place] [address] La [email or web address] PCP - General Family Medicine 04/07/19 08/19/21 Najma Jung MD [address] [place] [address] PCP - General Family Medicine 08/20/21 09/18/21 Cindi Houston MD [address] [place] [address] [email or web address] PCP - General Family Medicine 09/19/2109/20 Pito Maya DO [address] [place] [address] PCP - General Family Medicine 09/22/23 documented as of this encounter Additional Source Comments The information contained in this document represents components of the legal health record. It is not the complete legal health record.[facility]
--- OUTSIDE RECORDS SUMMARY | 2025-02-28 15:12 | XMS_ITS | Encounter Summary ---
Author Organization [facility] Address [address] [facility] [place] [address] Phone Care Team Providers Care Forestry Patrolman Name Role Phone Cindi Houston MD Primary Care Provider [phone] Pito Maya DO Primary Care Provider [phone] Encounter Details Date Type Department Care Team (Late st Contact Info) Description 09/24/2022 Procedure Pass [facility] [address] [place] [address] Social History Tobacco Use Types Packs/Day Years [...] Description 03/13/2025 2:40 PM EDT Office Visit [facility] [address] Floor, [address] [place], [place] [address] Hugo Barrios MD [address] [facility] [address] [place] [address] [email or web address] documented as of this encounter Visit Diagnoses Not on filedocumented in this encounter Care Teams Forestry Patrolman Relationship Specialty Start Date End Date Cindi Houston MD [address] [place] [address] [email or web address] PCP - General Family Medicine 09/19/2109/20 Pito Maya DO [address] [address] PCP - General Family Medicine 09/22/23 documented as of this encounter Additional Source Comments The information contained in this document represents components of the legal health record. It is not the complete legal health record.[facility]
--- OUTSIDE RECORDS SUMMARY | 2025-02-28 15:12 | XMS_ITS | Encounter Summary ---
Author Organization [facility] Address [address] [place] [address] Phone Care Team Providers Care Fleet Manager Name Role Phone NachoRichardson hicks Primary Care Provider [phone] Najma Jung MD Primary Care Provider Cindi Houston MD Primary Care Provider [phone] Pito Maya DO Primary Care Provider Encounter Details Date Type Department Care Team (Late st Contact Info) Description 08/07/2020 Procedure Pass [facility] [address] [place] [address] Social History Tobacco Use Types [...] Description 03/13/2025 2:40 PM EDT Office Visit [facility] [address] [place] [address] 3rd Floor, [address] [place], [place] [address] Hugo Barrios MD [address] [place] [address], [address] [place] [address] [place] [address] [email or web address] documented as of this encounter Visit Diagnoses Not on filedocumented in this encounter Care Teams Fleet Manager Relationship Specialty Start Date End Date Richardson Griffith DO [address] [place] [address] La [email or web address] PCP - General Family Medicine 04/07/19 08/19/21 Najma Jung MD [address] [place] [address] PCP - General Family Medicine 08/20/21 09/18/21 Cindi Houston MD [address] [place] [address] [email or web address] PCP - General Family Medicine 09/19/2109/20 Pito Maya DO [address] [address] PCP - General Family Medicine 09/22/23 documented as of this encounter Additional Source Comments The information contained in this document represents components of the legal health record. It is not the complete legal health record.[facility]
--- OUTSIDE RECORDS SUMMARY | 2025-02-28 15:12 | XMS_ITS | Encounter Summary ---
Author Organization [facility] Address [address] [place] [address] Phone Care Team Providers Care Historic Sites Registrar Name Role Phone NachoRichardson hicks Primary Care Provider Najma Jung MD Primary Care Provider Cindi Houston MD Primary Care Provider [phone] Pito Maya DO Primary Care Provider [phone] Encounter Details Date Type Department Care Team (Late st Contact Info) Description 02/27/2021 Procedure Pass [facility] [address] [place] [address] Social History Tobacco Use Types [...] Description 03/13/2025 2:40 PM EDT Office Visit [facility] [address] [place] [address] 3rd Floor, [address] [place] [address] Hugo Barrios MD [address] [place] [address], [address] [place] [address] [place] [address] [email or web address] documented as of this encounter Visit Diagnoses Not on filedocumented in this encounter Care Teams Historic Sites Registrar Relationship Specialty Start Date End Date Rihcardson Griffith DO [address] [place] [address] La [email or web address] PCP - General Family Medicine 04/07/19 08/19/21 Najma Jung MD [address] [place] [address] PCP - General Family Medicine 08/20/21 09/18/21 Cindi Houston MD [address] [place] [address] [email or web address] PCP - General Family Medicine 09/19/2109/20 Pito Maya DO [address] [address] PCP - General Family Medicine 09/22/23 documented as of this encounter Additional Source Comments The information contained in this document represents components of the legal health record. It is not the complete legal health record.[facility]
--- OUTSIDE RECORDS SUMMARY | 2025-02-28 15:12 | XMS_ITS | Encounter Summary ---
Author Organization [facility] Address [address] [place] [address] [place] [address] Phone Care Team Providers Care Staff Rn Name Role Phone [place], Pito Lubin DO Primary Care Provider [phone] Encounter Details Date Type Department Care Team (Late Contact Info) Description 09/22/2023 Procedure Pass [facility] [address] [place] [address] Social History Tobacco Use Types Packs/Day Years [...] Description 03/13/2025 2:40 PM EDT Office Visit [facility] [address] [facility] 3rd Floor, [address] [place] [address] Hugo Barrios MD [address] [facility], [address] [place] [address] [email or web address] documented as of this encounter Visit Diagnoses Not on filedocumented in this encounter Care Teams Staff Rn Relationship Specialty Start Date End Date Pito Maya DO [facility] [address] [place] [address] PCP - General Family Medicine 09/22/23 documented as of this encounter Additional Source Comments The information contained in this document represents components of the legal health record. It is not the complete legal health record.[facility]
--- OUTSIDE RECORDS SUMMARY | 2025-02-28 15:12 | XMS_ITS | Encounter Summary ---
Author Organization [facility] Address [address] [place] [address] Phone Care Team Providers Care Non Destructive Testing Specialist Name Role Phone Cindi Houston MD Primary Care Provider [phone] Pito Maya DO Primary Care Provider [phone] Encounter Details Date Type Department Care Team (Late st Contact Info) Description 03/25/2022 Procedure Pass [facility] [address] [place] [address] Social History Tobacco Use Types Packs/Day Years [...] Description 03/13/2025 2:40 PM EDT Office Visit [facility] [address] [place] [address] 3rd Floor, [address] [place] [address] Hugo Barrios MD [address] [facility], [address] [place] [address] documented as of this encounter Visit Diagnoses Not on filedocumented in this encounter Care Teams Non Destructive Testing Specialist Relationship Specialty Start Date End Date Cindi Houston MD [address] [place] [address] [email or web address] PCP - General Family Medicine 09/19/2109/20 Pito Maya DO [address] [address] PCP - General Family Medicine 09/22/23 documented as of this encounter Additional Source Comments The information contained in this document represents components of the legal health record. It is not the complete legal health record.[facility]
== END 2025-02-28 14:24 | disposition home or self-care (01) ==
LOC: HO.ACS 13:59
PROVIDERS: PCP Family Medicine; Visit Provider Internal Medicine Medical Oncology
DX: Z79.01 Long term (current) use of anticoagulants (principal)

== ENCOUNTER → 2025-02-28 13:59 | Outpatient (BNVA) | payer BC, SELFPAY | PROVIDERS: PCP Family Medicine; Visit Provider Internal Medicine Medical Oncology | DX: Z51.81 Encounter for therapeutic drug level monitoring (principal); Z79.01 Long term (current) use of anticoagulants | CPT/HCPCS: 85610; 99211 ==

== ENCOUNTER 2025-03-27 14:54 | Outpatient (AMB) | payer BC, SELFPAY ==
[2025-03-27 15:00] LABS: Prothrombin Time Whole Bld POC 53.1 sec (11.1-13.5); ~PT, ~INR - Anti Coag Clinic 4.4 (0.9-1.1)
--- NOTE | 2025-03-27 15:04 | MHC.OFFVISCO ---
Intake Intake Visit Reasons: Anticoagulation Allergies meperidine (From Demerol) Allergy (Severe, Verified 03/27/25 14:54) DIFF BREATHING clopidogrel (From Plavix) Allergy (Intermediate, Verified 03/27/25 14:54) EDEMA allopurinol Allergy (Intermediate, Uncoded 03/27/25 14:54) Hives contrast dye Adverse Reaction (Intermediate, Uncoded 03/27/25 14:54) Hives Medication List - Last Reconciled 03/27/25 by Kimi Gross RN amoxicillin 2,000 mg PO ONCE PRN aspirin (Adult Low Dose Aspirin) 81 mg PO DAILY fenofibrate micronized 134 mg PO DAILY hydrochlorothiazide 25 mg PO DAILY insulin glargine (Lantus Solostar U-100 Insulin) subcut every morning; metformin ER 1,500 mg PO DAILY metoprolol tartrate 100 mg PO BID metronidazole 1% topical mupirocin 2% 1 appl topical TID pen needle, diabetic As directed rosuvastatin 40 mg PO DAILY semaglutide 0.5 mg subcut QWEEK sildenafil mg PO triamcinolone acetonide 0.1% appl topical warfarin 4 mg See Protocol PO DAILY Nursing Note INR: 4.4 out of therapeutic range of 2.5-3.5 Medications and supplements reviewed Patient status: feels well Medications or supplements: no changes Diet: pt states he has not been eating his normal greens Denies any signs and symptoms of bleeding or clotting or unusual bruising Bleeding, bruising, clotting discussed Nutritional guidance given: to have a serving of greens today Dose: decrease today's dose from 4mg to 2mg and decrease tomorrow's dose from 6mg to 4mg then usual dose of 4mg X 4 days and 6mg X 3 days on Mon, Wed and Fri. F/U INR Date: 04/05/25?? Patient verbalizing understanding of instructions given. Coding Level of Care Code Est Patient Level 1 Diagnoses Current use of anticoagulant therapy Z79.01 Results AMB INR Fingerstick AMB INR Fingerstick 4.4 Last Edit by Kimi Gross RN on 03/27/25 14:59 interface delay Assessment & Plan Assessment & Plan (1) Current use of anticoagulant therapy: Code(s): Z79.01 - [facility] (current) use of anticoagulants Category: Medical
--- OUTSIDE RECORDS SUMMARY | 2025-03-27 19:18 | XMS_ITS | Encounter Summary ---
Author Organization [facility] Address [address] [place] [address] [place] [address] Phone Care Team Providers Care Electric Trucker Name Role Phone Cindi Houston MD Primary Care Provider [phone] Pito Maya DO Primary Care Provider [phone] Encounter Details Date Type Department Care Team (Late st Contact Info) Description 09/24/2022 Procedure Pass [facility] [place] [address] Social History Tobacco Use Types Packs/Day Years [...] Team (Late st Contact Info) Description 03/13/2025 Procedure Pass [facility] [place] [address] 08/10/2025 3:30 PM EDT Appointment [facility] [address] [place] [address] Hugo Barrios MD [address] [place] [address], [address] [address] [email or web address] 09/13/2025 2:40 PM EDT Office Visit [facility] [address] [place] [address] 3rd Floor, [address] [place] [address] Hugo Barrios MD [address] [place] [address] [email or web address] documented as of this encounter Visit Diagnoses Not on filedocumented in this encounter Care Teams Electric Trucker Relationship Specialty Start Date End Date Cindi Houston MD [address] [place] [address] [email or web address] PCP - General Family Medicine 09/19/2109/20 Pito Maya DO [address] [address] PCP - General Family Medicine 09/22/23 documented as of this encounter Additional Source Comments The information contained in this document represents components of the legal health record. It is not the complete legal health record.[facility]
--- OUTSIDE RECORDS SUMMARY | 2025-03-27 19:18 | XMS_ITS | Encounter Summary ---
Author Organization [facility] Address [address] [place] [address] [place] [address] Phone Care Team Providers Care Pearl Peller Name Role Phone Pito Maya Tristian BAILEY Primary Care Provider [phone] Encounter Details Date Type Department Care Team (Late st Contact Info) Description 09/22/2023 Procedure Pass Echo [facility] [address] [place] [address] Social History Tobacco Use Types Packs/Day Years [...] Care Team (Late Contact Info) Description 03/13/2025 Procedure Pass Echo Lab [address] [place] [address] 08/10/2025 3:30 PM EDT Appointment Echo Lab [address] [place] [place] [address] Hugo Barrios MD [address] [place] [address], [address] [place] [address] 09/13/2025 2:40 PM EDT Office Visit [facility] [address] [place] [address] 3rd Floor, [address] [place] [address] Hugo Barrios MD [address] [place] [address], [address] [address] documented as of this encounter Visit Diagnoses Not on filedocumented in this encounter Care Teams Pearl Peller Relationship Specialty Start Date End Date Pito Maya DO [address] [address] PCP - General Family Medicine 09/22/23 documented as of this encounter Additional Source Comments The information contained in this document represents components of the legal health record. It is not the complete legal health record.[facility]
--- OUTSIDE RECORDS SUMMARY | 2025-03-27 19:19 | XMS_ITS | Clinical Summary ---
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
--- OUTSIDE RECORDS SUMMARY | 2025-03-27 19:19 | XMS_ITS | Encounter Summary ---
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
--- OUTSIDE RECORDS SUMMARY | 2025-03-27 19:19 | XMS_ITS | Clinical Summary ---
Author Organization [facility] Address [address] [facility] [address] [place] [address] Phone Care Team Providers Care Tabulating Clerk Name Role Phone Pito Maya DO Primary [...] EDT): Patient had a recent admission at [facility] for a syncopal episode. It was felt [...] and eating a large steak and cheese wood grinder. 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 The valve lehr attendant is St. Adam #23. The peak gradient [...] of my colleagues due to my pending nursing home. Assessment & Plan (10/10/2019 3:37 PM EDT): [...] branch block Troponins flat while admitted at [facility] Has not had a stress test in [...] valve in the aortic position. The valve lehr attendant is St. Adam #23. The peak gradient [...] to have labs redrawn in several months. 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; Essential hypertension from Last 3 Months Immunizations Immunization Administration Dates Next Due COVID-19 [...] Sign Reading Time Taken Comments Blood Pressure 172/80 03/13/2025 2:51 PM EDT Pulse 85 03/13/2025 2:51 PM EDT Temperature 36.4 C (97.5 F) 09/02/2018 12:19 PM EDT Respiratory Rate 18 09/02/2018 12:19 PM EDT Oxygen Saturation 94% 03/13/2025 2:51 PM EDT Inhaled Oxygen Concentration - - Weight 87.5 kg (193 lb) 03/13/2025 2:51 PM EDT Height 175.3 cm (5' 9.02 ) 03/13/2025 2:51 PM ED T Body Mass Index 28.49 03/13/2025 2:51 PM EDT Plan of Treatment Upcoming Encounters Date Type Department Care Team (Late st Contact Info) Description 03/13/2025 Procedure Pass Echo Lab [address] [place] [address] 08/10/2025 3:30 PM EDT Appointment Echo Lab [place] [address] [place] [address] Hugo Barrios MD 22 [facility], [address] [place] [address] 09/13/2025 2:40 PM EDT Office Visit [facility] [address] 3rd Floor, [address] [place] [address] Hugo Barrios MD [address] [place] [address], [address] [place] [address] [email or web address] Health Maintenance Due Date Last Done Comments HEMOGLOBIN A1C 1958 DEPRESSION SCREENING 1970 SMOKING Hx and SMOKELESS TOBACCO SCREENING 1971 HEPATITIS C SCREENING 02/17/1976 PNEUMOCOCCAL VACCINES (50+ years) (1 of 2 - PCV) 1977 COLOGUARD 2003 COLONOSCOPY 2003 COLORECTAL CANCER SCREENING 2003 FIT TEST 2003 FOBT 2003 SIGMOIDOSCOPY 2003 VIRTUAL COLONOSCOPY 2003 RSV VACCINE (1 - Risk 50-74 years 1-dose series) 02/17/2008 ZOSTER VACCINES (1 of 2) 02/17/2008 DIABETIC EYE EXAM 11/28/2017 URINE MICROALBUMIN/CREATININE RATIO 11/28/2017 CREATININE LEVEL 02/02/2021 02/03/2020, 07/2019, 04/04/2019, Additional history exists POTASSIUM LEVEL 02/02/2021 02/03/2020, 05/0 07/2019, 04/04/2019, Additional history exists ABDOMINAL AORTIC ANEURYSM (AAA) SCREENING 2023 INFLUENZA VACCINE (#1) 2024 01/22/2020, 2016 COVID-19 VACCINE (2 - 2024- season) 2025 07/27/2020 BLOOD PRESSURE 09/11/2025 03/13/2025 Adult Td,Tdap Booster 03/01/2032 03/01/2022, 015 HEPATITIS [...] EDT) SODIUM 137 133 - 146 mmol/L [facility] CHLORIDE 104 96 - 108 mmol/L [facility] POTASSIUM 4.7 3.3 - 5.1 mmol/L [facility] CO2 26 21 - 35 mmol/L [facility] BUN 21(H) 6 - 19 mg/dL [facility] CREATININE 1.10 0.5 - 1.5 mg/dL [facility] GLUCOSE 165(H) 70 - 99 mg/dL [facility] CALCIUM 9.2 8.4 - 10.3 mg/dL [facility] EGFR 72 >59 mL/min/1.7 3m2 [facility] Comment:Estimated glomerular filtration rate calculated using the CKD-EPI equation. ANION GAP 12 10 - 20 mmol/L [facility] Blood 02/03/2020 8:52 AM EDT 02/03/2020 8:55 AM EDT us Yahir Alston MD LAB BLOOD ORDERABLES Final Resu lt [facility] [address] [place] [address] from Last 3 Months or Most Recently Relevant to Health Maintenance Insurance [address] [place] [address] [facility] OUT STATE O MEDICARE A BLUE CROSS OUT OF STATE PPO MEDICARE A BLUE CROSS OUT OF STATE PPO BLUE [place]OSS OUT OF STATE PPO BLUE [place]OSS OUT OF STATE PPO MEDICARE A BLUE CROSS OUT OF STATE PPO BLUE CROSS OUT OF BLUE [facility] PPO MEDICARE A BLUE CROSS OUT OF STATE PPO MEDICARE A [address] [place] [address] BLUE [place] OUT [facility] PPO MEDICARE A Advance Directives For more information, please contact: [phone] (9AM - 5PM [facility], Wednesday-Wednesday) * Full Code (Presumed) (Latest Code Status on File) Date Activated Date Inactivated Comments 09/01/2018 1:55 AM 09/02/2018 3:30 PM Care Teams Tabulating Clerk Relationship Specialty Start Date End Date Pito Maya DO [address] [address] PCP - General Family Medicine 09/22/23 Additional Source Comments The information contained in this document represents components of the legal health record. It is not the complete legal health record.[facility]
--- OUTSIDE RECORDS SUMMARY | 2025-03-27 19:19 | XMS_ITS | Encounter Summary ---
Author Organization [facility] Address [address] [facility] [address] [place] [address] Phone Care Team Providers Care Real Estate Listing Consultant Name Role Phone Cindi Houston MD Primary Care Provider [phone] Pito Maya DO Primary Care Provider [phone] Encounter Details Date Type Department Care Team (Late st Contact Info) Description 03/25/2022 Procedure Pass Echo Lab [address] [place] [address] Social History Tobacco Use Types Packs/Day Years [...] Info) Description 03/13/2025 Procedure Pass Echo Lab [address] [place] [address] 08/10/2025 3:30 PM EDT Appointment Echo Lab [address] [place] [address] Hugo Barrios MD 22 [facility], [address] [place] [address] 09/13/2025 2:40 PM EDT Office Visit [facility] [address] [place] [address] 3rd Floor, [address] [place] [address] Hugo Barrios MD [address] [address] [email or web address] documented as of this encounter Visit Diagnoses Not on filedocumented in this encounter Care Teams Real Estate Listing Consultant Relationship Specialty Start Date End Date Cindi Houston MD [address] [place] [address] [email or web address] PCP - General Family Medicine 09/19/2109/20 Pito Maya DO [address] [address] PCP - General Family Medicine 09/22/23 documented as of this encounter Additional Source Comments The information contained in this document represents components of the legal health record. It is not the complete legal health record.[facility]
--- OUTSIDE RECORDS SUMMARY | 2025-03-27 19:19 | XMS_ITS | Encounter Summary ---
Author Organization [facility] Address [address] [place] [address] [place] [address] Phone Care Team Providers Care Towel Hemmer Name Role Phone NachoRichardson hicks Primary Care Provider Najma Jung MD Primary Care Provider Cindi Houston MD Primary Care Provider [phone] Pito Maya DO Primary Care Provider Encounter Details Date Type Department Care Team (Late st Contact Info) Description 02/27/2021 Procedure Pass Echo Lab [place] [place] [address] Social History Tobacco Use Types Packs/Day Years [...] Info) Description 03/13/2025 Procedure Pass Echo Lab [place] [place] [address] 08/10/2025 3:30 PM EDT Appointment Echo Lab [place] [place] [address] Hugo Barrios MD 22 [facility], [address] [address] [email or web address] 09/13/2025 2:40 PM EDT Office Visit [facility] [address] [place] [address] 3rd Floor, [address] [place] [address] Hugo Barrios MD [address] [place] [address], [address] [address] [email or web address] documented as of this encounter Visit Diagnoses Not on filedocumented in this encounter Care Teams Towel Hemmer Relationship Specialty Start Date End Date Richardson Griffith DO [address] [place] [address] [email or web address] PCP - General Family Medicine 04/07/19 08/19/21 Najma Jung MD [address] [place] [address] PCP - General Family Medicine 08/20/21 09/18/21 Cindi Houston MD [address] [place] [address] [email or web address] PCP - General Family Medicine 09/19/2109/20 Pito Maya DO [address] [address] PCP - General Family Medicine 09/22/23 documented as of this encounter Additional Source Comments The information contained in this document represents components of the legal health record. It is not the complete legal health record.[facility]
--- OUTSIDE RECORDS SUMMARY | 2025-03-27 19:19 | XMS_ITS | Encounter Summary ---
Author Organization [facility] Address [address] [place] [address] [place] [address] Phone Care Team Providers Care Sap Bi Developer Name Role Phone NachoRichardson hicks Primary Care Provider Najma Jung MD Primary Care Provider Cindi Houston MD Primary Care Provider [phone] Pito Maya DO Primary Care Provider Encounter Details Date Type Department Care Team (Late st Contact Info) Description 08/07/2020 Procedure Pass Echo Lab [place] [place] [address] Social History Tobacco Use Types Packs/Day Years [...] Info) Description 03/13/2025 Procedure Pass Echo Lab [place] [address] [place] [address] 08/10/2025 3:30 PM EDT Appointment Echo Lab [place] [place] [address] Hugo Barrios MD 22 [facility], [address] [address] [email or web address] 09/13/2025 2:40 PM EDT Office Visit [facility] [address] [place] [address] 3rd Floor, [address] [place] [address] Hugo Barrios MD [address] [place] [address], [address] [address] [email or web address] documented as of this encounter Visit Diagnoses Not on filedocumented in this encounter Care Teams Sap Bi Developer Relationship Specialty Start Date End Date Richardson Griffith DO [address] [place] [address] La [email or web address] PCP - General Family Medicine 04/07/19 08/19/21 Najma Jung MD [address] [place] [address] PCP - General Family Medicine 08/20/21 09/18/21 Cindi Houston MD [address] [place] [address] [email or web address] PCP - General Family Medicine 09/19/2109/20 Pito Maya DO [address] [address] PCP - General Family Medicine 09/22/23 documented as of this encounter Additional Source Comments The information contained in this document represents components of the legal health record. It is not the complete legal health record.[facility]
--- OUTSIDE RECORDS SUMMARY | 2025-03-27 19:19 | XMS_ITS | Encounter Summary ---
Author Organization [facility] Address [address] [place] [address] [place] [address] Phone Care Team Providers Care Paper Deliverer Name Role Phone NachoRichardson hicks Primary Care Provider [phone] Najma Jung MD Primary Care Provider Cindi Houston MD Primary Care Provider [phone] Pito Maya DO Primary Care Provider Encounter Details Date Type Department Care Team (Late Contact Info) Description 10/09/2020 Procedure Pass [facility] Endoscopy Admitting Dept Virtual Department [address] [place] [address] Social History Tobacco Use Types Packs/Day Years [...] Upcoming Encounters Date Type Department Care Team ([facility] Contact Info) Description 03/13/2025 Procedure Pass Echo Lab [address] [place] [address] 08/10/2025 3:30 PM EDT Appointment Echo Lab [address] [place] [address] Hugo Barrios MD 22 [facility], [address] [address] [email or web address] 09/13/2025 2:40 PM EDT Office Visit [facility] 22 [facility] 3rd Floor, [address] [place] [address] Hugo Barrios MD 22 [facility], [address] [address] [email or web address] documented as of this encounter Visit Diagnoses Not on filedocumented in this encounter Care Teams Paper Deliverer Relationship Specialty Start Date End Date Richardson Griffith DO [address] [place] [address] La [email or web address] PCP - General Family Medicine 04/07/19 08/19/21 Najma Jung MD [address] [place] [address] PCP - General Family Medicine 08/20/21 09/18/21 Cindi Houston MD [address] [place] [address] [email or web address] PCP - General Family Medicine 09/19/2109/20 Pito Maya DO [address] [address] PCP - General Family Medicine 09/22/23 documented as of this encounter Additional Source Comments The information contained in this document represents components of the legal health record. It is not the complete legal health record.[facility]
== END 2025-03-27 15:10 | disposition home or self-care (01) ==
LOC: HO.ACS 14:54
PROVIDERS: PCP Family Medicine; Visit Provider Internal Medicine Medical Oncology
DX: Z79.01 Long term (current) use of anticoagulants (principal)

== ENCOUNTER → 2025-03-27 14:54 | Outpatient (BNVA) | payer BC, SELFPAY | PROVIDERS: PCP Family Medicine; Visit Provider Internal Medicine Medical Oncology | DX: Z95.2 Presence of prosthetic heart valve (principal); Z51.81 Encounter for therapeutic drug level monitoring; Z79.01 Long term (current) use of anticoagulants | CPT/HCPCS: 85610; 99211 ==

== ENCOUNTER 2025-04-05 14:56 | Outpatient (AMB) | payer BC, SELFPAY ==
[2025-04-05 15:02] LABS: Prothrombin Time Whole Bld POC 47.3 sec (11.1-13.5); ~PT, ~INR - Anti Coag Clinic 3.9 (0.9-1.1)
--- NOTE | 2025-04-05 15:08 | MHC.OFFVISCO ---
Intake Intake Visit Reasons: Anticoagulation Allergies meperidine (From Demerol) Allergy (Severe, Verified 04/05/25 14:57) DIFF BREATHING clopidogrel (From Plavix) Allergy (Intermediate, Verified 04/05/25 14:57) EDEMA allopurinol Allergy (Intermediate, Uncoded 04/05/25 14:57) Hives contrast dye Adverse Reaction (Intermediate, Uncoded 04/05/25 14:57) Hives Medication List - Last Reconciled 04/05/25 by Kimi Gross RN amoxicillin 2,000 mg PO ONCE PRN aspirin (Adult Low Dose Aspirin) 81 mg PO DAILY fenofibrate micronized 134 mg PO DAILY hydrochlorothiazide 25 mg PO DAILY insulin glargine (Lantus Solostar U-100 Insulin) subcut every morning; metformin ER 1,500 mg PO DAILY metoprolol tartrate 100 mg PO BID metronidazole 1% topical mupirocin 2% 1 appl topical TID pen needle, diabetic As directed rosuvastatin 40 mg PO DAILY semaglutide 0.5 mg subcut QWEEK sildenafil mg PO triamcinolone acetonide 0.1% appl topical warfarin 4 mg See Protocol PO DAILY Nursing Note INR: 3.9 out of therapeutic range of 2.5-3.5 Medications and supplements reviewed Patient status: feels well Medications or supplements: no changes Diet: no changes Denies any signs and symptoms of bleeding or clotting or unusual bruising Bleeding, bruising, clotting discussed Nutritional guidance given: to balance foods that raise with foods that lower the INR. Dose: decrease today's dose to 2mg (4mg) then 6mg and 4mg. Starting next week, will decrease weekly dose to 4mg X 5 days and 6mg X 2 days (Wed & ) F/U INR Date: 04/12/25?? Patient verbalizing understanding of instructions given. Coding Level of Care Code Est Patient Level 1 Diagnoses Current use of anticoagulant therapy Z79.01 Results AMB INR Fingerstick AMB INR Fingerstick 3.9 Last Edit by Kimi Gross RN on 04/05/25 15:07 interface delay Assessment & Plan Assessment & Plan (1) Current use of anticoagulant therapy: Code(s): Z79.01 - care home (current) use of anticoagulants Category: Medical
--- OUTSIDE RECORDS SUMMARY | 2025-04-05 18:04 | XMS_ITS | Clinical Summary ---
Author Organization [facility] Address [address] [facility] [address] [place] [address] Phone Care Team Providers Care Commercial Lender Name Role Phone Pito Maya DO Primary Care Provider [phone] Allergies Active Allergy Reactions Criticality Noted Date [...] EDT): Patient had a recent admission at [facility] for a syncopal episode. It was [...] and eating a large steak and cheese double end production grinder. PE is less likely as the [...] Diabetic diet Coronary artery disease invo lving hoopa coronary artery of hoopa heart without angina pectoris 06/01/2017 Overview (04/07/2019): [...] valve in the aortic position. The valve spline rolling machine job setter is St. Adam #23. The peak gradient [...] of my colleagues due to my pending care home. Assessment & Plan (10/10/2019 3:37 PM [...] branch block Troponins flat while admitted at [facility] Has not had a stress test [...] valve in the aortic position. The valve spline rolling machine job setter is St. Adam #23. The peak gradient [...] Description 03/13/2025 2:40 PM EDT Office Visit [facility] [address] 3rd Floor, [address] [place] [address] Hugo Barrios MD Presence of prosthetic heart valve (Primary Dx); Coronary artery disease involving hoopa coronary artery of hoopa heart without angina pectoris; Essential hypertension from [...] Description 03/13/2025 Procedure Pass Echo Lab [address] [place] [address] 08/10/2025 3:30 PM EDT Appointment Echo Lab [place] [address] [place] [address] Hugo Barrios MD 22 [facility], [address] [place] [address] 09/13/2025 2:40 PM EDT Office Visit [facility] [address] 3rd Floor, [address] [place] [address] Hugo Barrios MD [address] [place] [address], [address] [place] [address] [email or web address] Health Maintenance Due Date Last Done Comments [...] Date/Time Associated Diagnosis Comments BASIC METABOLIC PANEL (BMP) Routine 02/03/2020 8:52 AM EDT Pure hypercholesterolemia from Last 3 Months or Most Recently Relevant to Health Maintenance Results * (ABNORMAL) Basic metabolic panel (02/03/2020 8:52 AM EDT) SODIUM 137 133 - 146 mmol/L [facility] CHLORIDE 104 96 - 108 mmol/L [facility] POTASSIUM 4.7 3.3 - 5.1 mmol/L [facility] CO2 26 21 - 35 mmol/L [facility] BUN 21(H) 6 - 19 mg/dL [facility] CREATININE 1.10 0.5 - 1.5 mg/dL [facility] GLUCOSE 165(H) 70 - 99 mg/dL [facility] CALCIUM 9.2 8.4 - 10.3 mg/dL [facility] EGFR 72 >59 mL/min/1.7 3m2 [facility] Comment:Estimated glomerular filtration rate calculated using the CKD-EPI equation. ANION GAP 12 10 - 20 mmol/L [facility] Blood 02/03/2020 8:52 AM EDT 02/03/2020 8:55 AM EDT Yahir Alston MD LAB BLOOD BKR ORDERABLES Final Result [facility] [address] [place] [address] from Last 3 Months or Most Recently Relevant to Health Maintenance Insurance [address] [place] [address] [facility] PPO MEDICARE A BLUE CROSS OUT OF STATE PPO MEDICARE A BLUE CROSS OUT [place] [address] [place] [id number] CROSS OUT [facility] PPO [facility] OUT [facility] [place] [id number] BLUE CROSS OUT OF STATE PPO BL[place] [id number] BLUE [place]OSS OUT OF STATE PPO MEDICARE A Member Subscriber Plan / Payer (Ef fective 2023-Present) Name:Eddie Forrester Member ID:[id number] Relation to Subscriber:Self Name:Eddie Forrester Subscriber ID:[id number] Payer ID:[id number] Group ID:Not on file Type:Medicare Address: [facility] [address] [place] [phone] [address] [place], [place] [id number] [place], [place] [address]O MEDICARE A Advance Directives For more information, please contact: [phone] (9AM - 5PM [facility], Wednesday-Wednesday) * Full Code (Presumed) (Latest Code Status on File) Date Activated Date Inactivated Comments 09/01/2018 1:55 AM 09/02/2018 3:30 PM Care Teams Commercial Lender Relationship Specialty Start Date End Date Pito Maya DO [address] [address] PCP - General Family Medicine 09/22/23 Additional Source Comments The information contained in this document represents components of the legal health record. It is not the complete legal health record.[facility]
--- OUTSIDE RECORDS SUMMARY | 2025-04-05 18:04 | XMS_ITS | Encounter Summary ---
Author Organization [facility] Address [address] [place] [address] [place] [address] Phone Care Team Providers Care Strategic Debriefing Specialist Name Role Phone NachoRichardson hicks Primary Care Provider Najma Jung MD Primary Care Provider Cindi Houston MD Primary Care Provider [phone] Pito Maya DO Primary Care Provider Encounter Details Date Type Department Care Team (Late st Contact Info) Description 10/09/2020 Procedure Pass [facility] Endoscopy Admitting Dept Virtual Department [address] [place] [address] Social History Tobacco Use Types Packs/Day Years [...] Upcoming Encounters Date Type Department Care Team ([facility] Contact Info) Description 03/13/2025 Procedure Pass Echo Lab [address] [place] [address] 08/10/2025 3:30 PM EDT Appointment Echo Lab [address] [place] [address] Hugo Barrios MD 22 [facility], [address] [place] [address] 09/13/2025 2:40 PM EDT Office Visit [facility] [address] Floor, [address] [place] [address] Hugo Barrios MD 22 [facility], [address] [address] [email or web address] documented as of this encounter Visit Diagnoses Not on filedocumented in this encounter Care Teams Strategic Debriefing Specialist Relationship Specialty Start Date End Date Richardson Griffith DO [address] [place] [address] La [email or web address] PCP - General Family Medicine 04/07/19 08/19/21 Najma Jung MD [address] [place] [address] [email or web address] PCP - General Family Medicine 08/20/21 09/18/21 Cindi Houston MD [address] [place] [address] [email or web address] PCP - General Family Medicine 09/19/2109/20 Pito Maya DO [address] [address] PCP - General Family Medicine 09/22/23 documented as of this encounter Additional Source Comments The information contained in this document represents components of the legal health record. It is not the complete legal health record.[facility]
--- OUTSIDE RECORDS SUMMARY | 2025-04-05 18:04 | XMS_ITS | Encounter Summary ---
Author Organization [facility], Address [address] [place] [address] Phone Care Team Providers Care Flood Control Engineer Name Role Phone Cindi Houston MD Primary Care Provider [phone] Encounter Details Date Type Department Care Team (Late st Contact Info) Description 08/05/2022 Documentation Only [facility], [facility] [place] [address] [place] [id number] Cindi Houston MD [address] [place], [place] [phone] Social History Tobacco Use Types Packs/Day Years [...] 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
--- OUTSIDE RECORDS SUMMARY | 2025-04-05 18:04 | XMS_ITS | Encounter Summary ---
Author Organization [facility] Address [address] [place] [address] [place] [address] Phone Care Team Providers Care Tile Conduit Layer Name Role Phone Cindi Houston MD Primary Care Provider [phone] Pito Maya DO Primary Care Provider [phone] Encounter Details Date Type Department Care Team (Late st Contact Info) Description 09/24/2022 Procedure Pass Echo Lab [place] [place] [address] Social History Tobacco Use Types Packs/Day Years [...] Info) Description 03/13/2025 Procedure Pass Echo Lab [place] [place] [address] 08/10/2025 3:30 PM EDT Appointment Echo [facility] [place] [place] [address] Hugo Barrios MD [address] [place] [address], [address] [address] [email or web address] 09/13/2025 2:40 PM EDT Office Visit [facility] [address] [place] [address] 3rd Floor, [address] [place] [address] Hugo Barrios MD [address] [place] [address] [email or web address] documented as of this encounter Visit Diagnoses Not on filedocumented in this encounter Care Teams Tile Conduit Layer Relationship Specialty Start Date End Date Cindi Houston MD [address] [place] [address] [email or web address] PCP - General Family Medicine 09/19/2109/20 Pito Maya DO [address] [address] PCP - General Family Medicine 09/22/23 documented as of this encounter Additional Source Comments The information contained in this document represents components of the legal health record. It is not the complete legal health record.[facility]
--- OUTSIDE RECORDS SUMMARY | 2025-04-05 18:04 | XMS_ITS | Encounter Summary ---
Author Organization [facility] Address [address] [place] [address] [place] [address] Phone Care Team Providers Care Nursing Program Chair Name Role Phone Pito Maya Tristian BAILEY Primary Care Provider [phone] Encounter Details Date Type Department Care Team (Late st Contact Info) Description 09/22/2023 Procedure Pass Echo Lab [place] [place] [address] Social History Tobacco Use Types Packs/Day Years [...] Info) Description 03/13/2025 Procedure Pass Echo Lab [address] [place] [address] 08/10/2025 3:30 PM EDT Appointment Echo Lab [address] [place] [address] Hugo Barrios MD [address] [place] [address], [address] [place] [address] 09/13/2025 2:40 PM EDT Office Visit [facility] [address] [place] [address] 3rd Floor, [address] [place] [address] Hugo Barrios MD [address] [place] [address], [address] [address] documented as of this encounter Visit Diagnoses Not on filedocumented in this encounter Care Teams Nursing Program Chair Relationship Specialty Start Date End Date Pito Maya DO [address] [address] PCP - General Family Medicine 09/22/23 documented as of this encounter Additional Source Comments The information contained in this document represents components of the legal health record. It is not the complete legal health record.[facility]
--- OUTSIDE RECORDS SUMMARY | 2025-04-05 18:04 | XMS_ITS | Encounter Summary ---
Author Organization [facility] Address [address] [place] [address] [place] [address] Phone Care Team Providers Care Homeopathic Doctor Name Role Phone NachoRichardson hicks Primary Care Provider [phone] Najma Jung MD Primary Care Provider Cindi Houston MD Primary Care Provider [phone] Pito Maya DO Primary Care Provider Encounter Details Date Type Department Care Team (Late st Contact Info) Description 08/07/2020 Procedure Pass Echo Lab [place] [place] [address] Social History Tobacco Use Types Packs/Day Years [...] Info) Description 03/13/2025 Procedure Pass [facility] [place] [address] [place] [address] 08/10/2025 3:30 PM EDT Appointment Echo [facility] [place] [place] [address] Hugo Barrios MD 22 [facility], [address] [address] [email or web address] 09/13/2025 2:40 PM EDT Office Visit [facility] [address] [place] [address] 3rd Floor, [address] [place] [address] Hugo Barrios MD 22 [facility], [address] [address] [email or web address] documented as of this encounter Visit Diagnoses Not on filedocumented in this encounter Care Teams Homeopathic Doctor Relationship Specialty Start Date End Date Richardson Griffith DO [address] [place] [address] La [email or web address] PCP - General Family Medicine 04/07/19 08/19/21 Najma Jung MD [address] [place] [address] [email or web address] PCP - General Family Medicine 08/20/21 09/18/21 Cindi Houston MD [address] [place] [address] [email or web address] PCP - General Family Medicine 09/19/2109/20 Pito Maya DO [address] [address] PCP - General Family Medicine 09/22/23 documented as of this encounter Additional Source Comments The information contained in this document represents components of the legal health record. It is not the complete legal health record.[facility]
--- OUTSIDE RECORDS SUMMARY | 2025-04-05 18:04 | XMS_ITS | Encounter Summary ---
Author Organization [facility] Address [address] [place] [address] [place] [address] Phone Care Team Providers Care Diplomatic Officer Name Role Phone NachoRichardson hicks Primary Care Provider [phone] Najma Jung MD Primary Care Provider Cindi Houston MD Primary Care Provider [phone] Pito Maya DO Primary Care Provider Encounter Details Date Type Department Care Team (Late st Contact Info) Description 02/27/2021 Procedure Pass Echo Lab [place] [place] [address] Social History Tobacco Use Types Packs/Day Years [...] Info) Description 03/13/2025 Procedure Pass Echo Lab [place] [place] [address] 08/10/2025 3:30 PM EDT Appointment Echo Lab [place] [place] [address] Hugo Barrios MD 22 [facility], [address] [address] [email or web address] 09/13/2025 2:40 PM EDT Office Visit [facility] [address] [place] [address] 3rd Floor, [address] [place] [address] Hugo Barrios MD 22 [facility], [address] [address] [email or web address] documented as of this encounter Visit Diagnoses Not on filedocumented in this encounter Care Teams Diplomatic Officer Relationship Specialty Start Date End Date Richardson Griffith DO [address] [place] [address] La [email or web address] PCP - General Family Medicine 04/07/19 08/19/21 Najma Jung MD [address] [place] [address] [email or web address] PCP - General Family Medicine 08/20/21 09/18/21 Cindi Houston MD [address] [place] [address] [email or web address] PCP - General Family Medicine 09/19/2109/20 Pito Maya DO [address] [address] PCP - General Family Medicine 09/22/23 documented as of this encounter Additional Source Comments The information contained in this document represents components of the legal health record. It is not the complete legal health record.[facility]
--- OUTSIDE RECORDS SUMMARY | 2025-04-05 18:04 | XMS_ITS | Clinical Summary ---
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
--- OUTSIDE RECORDS SUMMARY | 2025-04-05 18:04 | XMS_ITS | Encounter Summary ---
Author Organization [facility] Address [address] [facility] [address] [place] [address] Phone Care Team Providers Care Sdv Pilot/Navigator/Dds Operator Name Role Phone Cindi Houston MD Primary Care Provider [phone] Pito Maya DO Primary Care Provider [phone] Encounter Details Date Type Department Care Team (Late st Contact Info) Description 03/25/2022 Procedure Pass Echo Lab [address] [place] [address] Social History Tobacco Use Types Packs/Day Years [...] Info) Description 03/13/2025 Procedure Pass Echo Lab [address] [place] [address] 08/10/2025 3:30 PM EDT Appointment Echo Lab [address] [place] [address] Hugo Barrios MD 22 [facility], [address] [place] [address] 09/13/2025 2:40 PM EDT Office Visit [facility] [address] [place] [address] 3rd Floor, [address] [place] [address] Hugo Barrios MD [address] [address] [email or web address] documented as of this encounter Visit Diagnoses Not on filedocumented in this encounter Care Teams Sdv Pilot/Navigator/Dds Operator Relationship Specialty Start Date End Date Cindi Houston MD [address] [place] [address] [email or web address] PCP - General Family Medicine 09/19/2109/20 Pito Maya DO [address] [address] PCP - General Family Medicine 09/22/23 documented as of this encounter Additional Source Comments The information contained in this document represents components of the legal health record. It is not the complete legal health record.[facility]
== END 2025-04-05 15:15 | disposition home or self-care (01) ==
LOC: HO.ACS 14:56
PROVIDERS: PCP Family Medicine; Visit Provider Internal Medicine Medical Oncology
DX: Z79.01 Long term (current) use of anticoagulants (principal)

== ENCOUNTER → 2025-04-05 14:56 | Outpatient (BNVA) | payer BC, SELFPAY | PROVIDERS: PCP Family Medicine; Visit Provider Internal Medicine Medical Oncology | DX: Z51.81 Encounter for therapeutic drug level monitoring (principal); Z79.01 Long term (current) use of anticoagulants; Z95.2 Presence of prosthetic heart valve | CPT/HCPCS: 85610; 99211 ==

== ENCOUNTER 2025-04-16 14:03 | Outpatient (AMB) | payer BC, SELFPAY ==
[2025-04-16 14:13] LABS: Prothrombin Time Whole Bld POC 42.4 sec (11.1-13.5); ~PT, ~INR - Anti Coag Clinic 3.5 (0.9-1.1)
--- NOTE | 2025-04-16 14:19 | MHC.OFFVISCO ---
Intake Intake Visit Reasons: Anticoagulation Allergies meperidine (From Demerol) Allergy (Severe, Verified 04/16/25 14:06) DIFF BREATHING clopidogrel (From Plavix) Allergy (Intermediate, Verified 04/16/25 14:06) EDEMA allopurinol Allergy (Intermediate, Uncoded 04/16/25 14:06) Hives contrast dye Adverse Reaction (Intermediate, Uncoded 04/16/25 14:06) Hives Medication List - Last Reconciled 04/16/25 by Kimi Gross RN amoxicillin 2,000 mg PO ONCE PRN aspirin (Adult Low Dose Aspirin) 81 mg PO DAILY fenofibrate micronized 134 mg PO DAILY hydrochlorothiazide 25 mg PO DAILY insulin glargine (Lantus Solostar U-100 Insulin) subcut every morning; metformin ER 1,500 mg PO DAILY metoprolol tartrate 100 mg PO BID metronidazole 1% topical mupirocin 2% 1 appl topical TID pen needle, diabetic As directed rosuvastatin 40 mg PO DAILY semaglutide 0.5 mg subcut QWEEK sildenafil mg PO triamcinolone acetonide 0.1% appl topical warfarin 4 mg See Protocol PO DAILY Nursing Note INR: 3.5 in therapeutic range of 2.5-3.5 Medications and supplements reviewed No changes in health, diet, medications, or supplements, Denies any signs and symptoms of bleeding or bruising or clotting. Bleeding, bruising, clotting discussed Nutritional guidance given to have a serving of greens today Dose: 4mg X 5 days and 6mg X 2 days (Mon/Thurs) F/U INR: 2 weeks Patient verbalizes understanding of instructions with read back given Coding Level of Care Code Est Patient Level 1 Diagnoses Current use of anticoagulant therapy Z79.01 Results AMB INR Fingerstick AMB INR Fingerstick 3.5 Last Edit by Kimi Gross RN on 04/16/25 14:15 interface delay Assessment & Plan Assessment & Plan (1) Current use of anticoagulant therapy: Code(s): Z79.01 - intermodal dispatcher (current) use of anticoagulants Category: Medical
== END 2025-04-16 14:21 | disposition home or self-care (01) ==
LOC: HO.ACS 14:03
PROVIDERS: PCP Family Medicine; Visit Provider Internal Medicine Medical Oncology
DX: Z79.01 Long term (current) use of anticoagulants (principal)

== ENCOUNTER → 2025-04-16 14:03 | Outpatient (BNVA) | payer BC, SELFPAY | PROVIDERS: PCP Family Medicine; Visit Provider Internal Medicine Medical Oncology | DX: Z95.2 Presence of prosthetic heart valve (principal); Z51.81 Encounter for therapeutic drug level monitoring; Z79.01 Long term (current) use of anticoagulants | CPT/HCPCS: 85610; 99211 ==

== ENCOUNTER 2025-05-01 09:59 | Outpatient (AMB) | payer BC, SELFPAY ==
[2025-05-01 10:04] LABS: Prothrombin Time Whole Bld POC 44.1 sec (11.1-13.5); ~PT, ~INR - Anti Coag Clinic 3.7 (0.9-1.1)
--- NOTE | 2025-05-01 10:06 | MHC.OFFVISCO ---
Intake Intake Visit Reasons: Anticoagulation Allergies meperidine (From Demerol) Allergy (Severe, Verified 05/01/25 10:00) DIFF BREATHING clopidogrel (From Plavix) Allergy (Intermediate, Verified 05/01/25 10:00) EDEMA allopurinol Allergy (Intermediate, Uncoded 05/01/25 10:00) Hives contrast dye Adverse Reaction (Intermediate, Uncoded 05/01/25 10:00) Hives Medication List - Last Reconciled 05/01/25 by Kimi Gross RN amoxicillin 2,000 mg PO ONCE PRN aspirin (Adult Low Dose Aspirin) 81 mg PO DAILY fenofibrate micronized 134 mg PO DAILY hydrochlorothiazide 25 mg PO DAILY insulin glargine (Lantus Solostar U-100 Insulin) subcut every morning; metformin ER 1,500 mg PO DAILY metoprolol tartrate 100 mg PO BID metronidazole 1% topical mupirocin 2% 1 appl topical TID pen needle, diabetic As directed rosuvastatin 40 mg PO DAILY semaglutide 0.5 mg subcut QWEEK sildenafil mg PO triamcinolone acetonide 0.1% appl topical warfarin 4 mg See Protocol PO DAILY Nursing Note INR: 3.7 out of therapeutic range of 2.5-3.5 Medications and supplements reviewed Patient status: feels well Medications or supplements: no changes Diet: usual diet for pt Denies any signs and symptoms of bleeding or clotting or unusual bruising Bleeding, bruising, clotting discussed Nutritional guidance given: to have a serving of greens today Dose: 4mg X 5 days and 6mg X 2 days (Mon/Thurs) F/U INR Date: 05/21/25?? Patient verbalizing understanding of instructions given. Coding Level of Care Code Est Patient Level 1 Diagnoses Current use of anticoagulant therapy Z79.01 Results AMB INR Fingerstick AMB INR Fingerstick 3.7 Last Edit by Kimi Gross RN on 05/01/25 10:06 interface delay Assessment & Plan Assessment & Plan (1) Current use of anticoagulant therapy: Code(s): Z79.01 - [facility] (current) use of anticoagulants Category: Medical
--- OUTSIDE RECORDS SUMMARY | 2025-05-01 11:12 | XMS_ITS | Encounter Summary ---
Author Organization [facility] Address [address] [place] [address] [place] [address] Phone Care Team Providers Care Customer Sales Advisor Name Role Phone Pito Maya Tristian BAILEY Primary Care Provider Encounter Details Date Type Department Care Team (Late st Contact Info) Description 09/22/2023 Procedure Pass Echo Lab [place] [place] [address] Social History Tobacco Use Types Packs/Day Years [...] Info) Description 03/13/2025 Procedure Pass Echo Lab [address] [place] [address] 08/10/2025 3:30 PM EDT Appointment Echo Lab [address] [place] [address] Hugo Barrios MD [address] [place] [address], [address] [place] [address] 09/13/2025 2:40 PM EDT Office Visit [facility] [address] [place] [address] 3rd Floor, [address] [place] [address] Hugo Barrios MD [address] [place] [address], [address] [address] documented as of this encounter Visit Diagnoses Not on filedocumented in this encounter Care Teams Customer Sales Advisor Relationship Specialty Start Date End Date Pito Maya DO [address] [address] PCP - General Family Medicine 09/22/23 documented as of this encounter Additional Source Comments The information contained in this document represents components of the legal health record. It is not the complete legal health record.[facility]
--- OUTSIDE RECORDS SUMMARY | 2025-05-01 11:12 | XMS_ITS | Encounter Summary ---
Author Organization [facility] Address [address] [place] [address] [place] [address] Phone Care Team Providers Care Care Support Representative Name Role Phone NachoRichardson hicks Primary Care Provider Najma Jung MD Primary Care Provider Cindi Houston MD Primary Care Provider [phone] Pito Maya DO Primary Care Provider Encounter Details Date Type Department Care Team (Late st Contact Info) Description 08/07/2020 Procedure Pass Echo Lab [place] [place] [address] Social History Tobacco Use Types Packs/Day Years [...] Info) Description 03/13/2025 Procedure Pass Echo Lab [place] [address] [place] [address] 08/10/2025 3:30 PM EDT Appointment Echo Lab [place] [place] [address] Hugo Barrios MD 22 [facility], [address] [address] [email or web address] 09/13/2025 2:40 PM EDT Office Visit [facility] [address] [place] [address] 3rd Floor, [address] [place] [address] Hugo Barrios MD 22 [facility], [address] [address] [email or web address] documented as of this encounter Visit Diagnoses Not on filedocumented in this encounter Care Teams Care Support Representative Relationship Specialty Start Date End Date Richardson Griffith DO [address] [place] [address] La [email or web address] PCP - General Family Medicine 04/07/19 08/19/21 Najma Jung MD [address] [place] [address] [email or web address] PCP - General Family Medicine 08/20/21 09/18/21 Cindi Houston MD [address] [place] [address] [email or web address] PCP - General Family Medicine 09/19/2109/20 Pito Maya DO [address] [address] PCP - General Family Medicine 09/22/23 documented as of this encounter Additional Source Comments The information contained in this document represents components of the legal health record. It is not the complete legal health record.[facility]
--- OUTSIDE RECORDS SUMMARY | 2025-05-01 11:12 | XMS_ITS | Encounter Summary ---
Author Organization [facility] Address [address] [place] [address] [place] [address] Phone Care Team Providers Care Information Coordinator Name Role Phone NachoRichardson hicks Primary Care Provider [phone] Najma Jung MD Primary Care Provider Cindi Houston MD Primary Care Provider [phone] Pito Maya DO Primary Care Provider Encounter Details Date Type Department Care Team (Late st Contact Info) Description 10/09/2020 Procedure Pass [facility] Endoscopy Admitting Dept Virtual Department [address] [place] [address] Social History Tobacco Use Types Packs/Day Years [...] Encounters Date Type Department Care Team ([facility] Contact Info) Description 03/13/2025 Procedure Pass Echo Lab [address] [place] [address] 08/10/2025 3:30 PM EDT Appointment Echo Lab [address] [place] [address] Hugo Barrios MD 22 [facility], [address] [place] [address] 09/13/2025 2:40 PM EDT Office Visit [facility] [address] 3rd Floor, [address] [place] [address] Hugo Barrios MD 22 [facility], [address] [address] [email or web address] documented as of this encounter Visit Diagnoses Not on filedocumented in this encounter Care Teams Information Coordinator Relationship Specialty Start Date End Date Richardson Griffith DO [address] [place] [address] La [email or web address] PCP - General Family Medicine 04/07/19 08/19/21 Najma Jung MD [address] [place] [address] [email or web address] PCP - General Family Medicine 08/20/21 09/18/21 Cindi Houston MD [address] [place] [address] [email or web address] PCP - General Family Medicine 09/19/2109/20 Pito Maya DO [address] [address] PCP - General Family Medicine 09/22/23 documented as of this encounter Additional Source Comments The information contained in this document represents components of the legal health record. It is not the complete legal health record.[facility]
--- OUTSIDE RECORDS SUMMARY | 2025-05-01 11:12 | XMS_ITS | Encounter Summary ---
Author Organization [facility] Address [address] [place] [address] [place] [address] Phone Care Team Providers Care Diagnostic Imaging Manager Name Role Phone Cnidi Houston MD Primary Care Provider [phone] Pito Maya DO Primary Care Provider [phone] Encounter Details Date Type Department Care Team (Late st Contact Info) Description 09/24/2022 Procedure Pass Echo Lab [place] [place] [address] Social History Tobacco Use Types Packs/Day Years [...] Info) Description 03/13/2025 Procedure Pass Echo Lab [place] [place] [address] 08/10/2025 3:30 PM EDT Appointment Echo Lab [place] [place] [address] Hugo Barrios MD [address] [place] [address], [address] [address] [email or web address] 09/13/2025 2:40 PM EDT Office Visit [facility] [address] [place] [address] 3rd Floor, [address] [place] [address] Hugo Barrios MD [address] [place] [address] [email or web address] documented as of this encounter Visit Diagnoses Not on filedocumented in this encounter Care Teams Diagnostic Imaging Manager Relationship Specialty Start Date End Date Cindi Houston MD [address] [place] [address] [email or web address] PCP - General Family Medicine 09/19/2109/20 Pito Maya DO [address] [address] PCP - General Family Medicine 09/22/23 documented as of this encounter Additional Source Comments The information contained in this document represents components of the legal health record. It is not the complete legal health record.[facility]
--- OUTSIDE RECORDS SUMMARY | 2025-05-01 11:12 | XMS_ITS | Clinical Summary ---
Author Organization [facility] Address [address] [facility] [address] [place] [address] Phone Care Team Providers Care Front Desk Admin Name Role Phone Pito Maya DO Primary [...] EDT): Patient had a recent admission at [facility] for a syncopal episode. It was [...] and eating a large steak and cheese card grinder. 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 The valve wheel lacer and truer is St. Adam #23. The peak gradient [...] of my colleagues due to my pending fpc. Assessment & Plan (10/10/2019 3:37 PM EDT): [...] branch block Troponins flat while admitted at [facility] Has not had a stress test [...] valve in the aortic position. The valve wheel lacer and truer is St. Adam #23. 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; Essential hypertension from [...] Info) Description 03/13/2025 Procedure Pass Echo Lab [address] [place] [address] 08/10/2025 3:30 PM EDT Appointment Echo Lab [place] [address] [place] [address] Hugo Barrios MD 22 [facility], [address] [place] [address] 09/13/2025 2:40 PM EDT Office Visit [facility] [address] 3rd Floor, [address] [place] [address] Hugo Barrios MD [address] [place] [address], [address] [place] [address] [email or web address] Health Maintenance Due Date Last Done Comments [...] EDT) SODIUM 137 133 - 146 mmol/L [facility] CHLORIDE 104 96 - 108 mmol/L [facility] POTASSIUM 4.7 3.3 - 5.1 mmol/L [facility] CO2 26 21 - 35 mmol/L [facility] BUN 21(H) 6 - 19 mg/dL [facility] CREATININE 1.10 0.5 - 1.5 mg/dL [facility] GLUCOSE 165(H) 70 - 99 mg/dL [facility] CALCIUM 9.2 8.4 - 10.3 mg/dL [facility] EGFR 72 >59 mL/min/1.7 3m2 [facility] Comment:Estimated glomerular filtration rate calculated using the CKD-EPI equation. ANION GAP 12 10 - 20 mmol/L [facility] Blood 02/03/2020 8:52 AM EDT 02/03/2020 8:55 AM EDT Yahir Alston MD LAB BLOOD BKR ORDERABLES Final Result [facility] [address] [place] [address] from Last 3 Months or Most Recently Relevant to Health Maintenance Insurance * Guarantor: Eddie Forrester Account Type Relation to Patient Date of Phone Billing Address Personal/Family Self [address] [place] [address] [address] [place] [address] [facility] PPO MEDICARE A BLUE CROSS OUT OF STATE PPO MEDICARE A BLUE CROSS OUT OF [place] [address] [address] CROSS OUT [facility] PPO [facility] OUT [facility] [place] [id number] BLUE [place]OSS OUT OF STATE PPO BL[place] [id number] BLUE [place]OSS OUT OF STATE PPO MEDICARE A [address] [place], [place] [id number] [place], [place] [id number] MEDICARE A Advance Directives For more information, please contact: [phone] (9AM - 5PM [facility], Wednesday-Wednesday) * Full Code (Presumed) (Latest Code Status on File) Date Activated Date Inactivated Comments 09/01/2018 1:55 AM 09/02/2018 3:30 PM Care Teams Front Desk Admin Relationship Specialty Start Date End Date Pito Maya DO [address] [address] PCP - General Family Medicine 09/22/23 Additional Source Comments The information contained in this document represents components of the legal health record. It is not the complete legal health record.[facility]
--- OUTSIDE RECORDS SUMMARY | 2025-05-01 11:12 | XMS_ITS | Encounter Summary ---
Author Organization [facility] Address [address] [place] [address] [place] [address] Phone Care Team Providers Care Maintenance Mechanic Millwright Name Role Phone NachoRichardson hicks Primary Care Provider Najma Jung MD Primary Care Provider Cindi [place] MD Primary Care Provider [phone] Pito Maya DO Primary Care Provider Encounter Details Date Type Department Care Team (Late st Contact Info) Description 02/27/2021 Procedure Pass Echo [facility] [place] [place] [address] Social History Tobacco Use Types Packs/Day Years [...] Info) Description 03/13/2025 Procedure Pass [facility] [place] [place] [address] 08/10/2025 3:30 PM EDT Appointment Echo [facility] [place] [place] [address] Hugo Barrios MD 22 [facility], [address] [address] [email or web address] 09/13/2025 2:40 PM EDT Office Visit [facility] [address] [place] [address] 3rd Floor, [address] [place] [address] Hugo Barrios MD 22 [facility], [address] [address] [email or web address] documented as of this encounter Visit Diagnoses Not on filedocumented in this encounter Care Teams Maintenance Mechanic Millwright Relationship Specialty Start Date End Date Richardson Griffith DO [address] [place] [address] La [email or web address] PCP - General Family Medicine 04/07/19 08/19/21 Najma Jung MD [address] [place] [address] [email or web address] PCP - General Family Medicine 08/20/21 09/18/21 Cindi Houston MD [address] [place] [address] [email or web address] PCP - General Family Medicine 09/19/2109/20 Pito Maya DO [address] [address] PCP - General Family Medicine 09/22/23 documented as of this encounter Additional Source Comments The information contained in this document represents components of the legal health record. It is not the complete legal health record.[facility]
--- OUTSIDE RECORDS SUMMARY | 2025-05-01 11:13 | XMS_ITS | Encounter Summary ---
Author Organization [facility] Address [address] [facility] [address] [place] [address] Phone Care Team Providers Care Launchman Name Role Phone Cindi Houston MD Primary Care Provider [phone] Pito Maya DO Primary Care Provider [phone] Encounter Details Date Type Department Care Team (Late st Contact Info) Description 03/25/2022 Procedure Pass [facility] [address] [place] [address] Social History Tobacco Use Types Packs/Day Years [...] Info) Description 03/13/2025 Procedure Pass [facility] [address] [place] [address] 08/10/2025 3:30 PM EDT Appointment Echo Lab [address] [place] [address] Hugo Barrios MD 22 [facility], [address] [place] [address] 09/13/2025 2:40 PM EDT Office Visit [facility] [address] [place] [address] 3rd Floor, [address] [place] [address] Hugo Barrios MD [address] [address] [email or web address] documented as of this encounter Visit Diagnoses Not on filedocumented in this encounter Care Teams Launchman Relationship Specialty Start Date End Date Cindi Houston MD [address] [place] [address] [email or web address] PCP - General Family Medicine 09/19/2109/20 Pito Maya DO [address] [address] PCP - General Family Medicine 09/22/23 documented as of this encounter Additional Source Comments The information contained in this document represents components of the legal health record. It is not the complete legal health record.[facility]
== END 2025-05-01 10:11 | disposition home or self-care (01) ==
LOC: HO.ACS 09:59
PROVIDERS: PCP Family Medicine; Visit Provider Internal Medicine Medical Oncology
DX: Z79.01 Long term (current) use of anticoagulants (principal)

== ENCOUNTER → 2025-05-01 09:59 | Outpatient (BNVA) | payer BC, SELFPAY | PROVIDERS: PCP Family Medicine; Visit Provider Internal Medicine Medical Oncology | DX: Z95.2 Presence of prosthetic heart valve (principal); Z51.81 Encounter for therapeutic drug level monitoring; Z79.01 Long term (current) use of anticoagulants | CPT/HCPCS: 85610; 99211 ==

== ENCOUNTER 2025-05-21 14:46 | Outpatient (AMB) | payer BC, SELFPAY ==
--- NOTE | 2025-05-21 15:24 | MHC.OFFVISCO ---
Intake Intake Visit Reasons: Anticoagulation Allergies meperidine (From Demerol) Allergy (Severe, Verified 05/21/25 15:09) DIFF BREATHING clopidogrel (From Plavix) Allergy (Intermediate, Verified 05/21/25 15:09) EDEMA allopurinol Allergy (Intermediate, Uncoded 05/21/25 15:09) Hives contrast dye Adverse Reaction (Intermediate, Uncoded 05/21/25 15:09) Hives Medication List - Last Reconciled 05/21/25 by Marguerite Mcclelland RN amoxicillin 2,000 mg PO ONCE PRN aspirin (Adult Low Dose Aspirin) 81 mg PO DAILY fenofibrate micronized 134 mg PO DAILY hydrochlorothiazide 25 mg PO DAILY insulin glargine (Lantus Solostar U-100 Insulin) subcut every morning; metformin ER 1,500 mg PO DAILY metoprolol tartrate 100 mg PO BID metronidazole 1% topical mupirocin 2% 1 appl topical TID pen needle, diabetic As directed rosuvastatin 40 mg PO DAILY semaglutide 0.5 mg subcut QWEEK sildenafil mg PO triamcinolone acetonide 0.1% appl topical warfarin 4 mg See Protocol PO DAILY Nursing Note INR 3.6 out of therapeutic range 2.5-3.5 Medications and supplements reviewed Patient status: well-no changes at this time semaglutide to increase this week Medications or supplements: no other changes Diet: good Denies any signs and symptoms of bleeding or clotting or unusual bruising Bleeding, bruising, clotting discussed Nutritional guidance given: increase weekly greens Dose: keep same dose for now 5mg x 2 days/ 4mg x 5 days F/U INR Date : 3 weeks due to semaglutide increase and the holidays ?? Patient verbalizing understanding of instructions given. 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
--- OUTSIDE RECORDS SUMMARY | 2025-05-21 18:02 | XMS_ITS | Encounter Summary ---
Author Organization [facility] Address [address] [place] [address] [place] [address] Phone Care Team Providers Care Rn School Name Role Phone Cindi Houston MD Primary Care Provider [phone] Pito Maya DO Primary Care Provider [phone] Encounter Details Date Type Department Care Team (Late st Contact Info) Description 09/24/2022 Procedure Pass [facility] [address] [place] [address] Social History Tobacco Use Types Packs/Day Years [...] (Late Contact Info) Description 03/13/2025 Procedure Pass [facility] [address] [place] [address] 08/10/2025 3:30 PM EDT Appointment [facility] [address] [place] [address] Hugo Barrios MD [address] [place] [address], [address] [address] [email or web address] 09/13/2025 2:40 PM EDT Office Visit [facility] [address] Floor, [address] [place] [address] Hugo Barrios MD [address] [place] [address] [email or web address] documented as of this encounter Visit Diagnoses Not on filedocumented in this encounter Care Teams Rn School Relationship Specialty Start Date End Date Cnidi Houston MD [address] [place] [address] [email or web address] PCP - General Family Medicine 09/19/2109/20 Pito Maya DO [address] [address] PCP - General Family Medicine 09/22/23 documented as of this encounter Additional Source Comments The information contained in this document represents components of the legal health record. It is not the complete legal health record.[facility]
--- OUTSIDE RECORDS SUMMARY | 2025-05-21 18:02 | XMS_ITS | Encounter Summary ---
Author Organization [facility] Address 399 [facility] [address] [place] [address] Phone Care Team Providers Care Assembly Operator Name Role Phone Pito Maya Tristian BAILEY Primary Care Provider Encounter Details Date Type Department Care Team (Late st Contact Info) Description 09/22/2023 Procedure Pass [facility] [address] [place] [address] Social History Tobacco Use Types Packs/Day Years [...] st Contact Info) Description 03/13/2025 Procedure Pass [facility] [address] [place] [address] 08/10/2025 3:30 PM EDT Appointment [facility] [address] [place] [address] Hugo Barrios MD [address] [place] [address], [address] [place] [address] 09/13/2025 2:40 PM EDT Office Visit [facility] [address] Floor, [address] [place] [address] Hugo Barrios MD [address] [place] [address], [address] [address] [email or web address] documented as of this encounter Visit Diagnoses Not on filedocumented in this encounter Care Teams Assembly Operator Relationship Specialty Start Date End Date Pito Maya DO [facility] [address] [address] PCP - General Family Medicine 09/22/23 documented as of this encounter Additional Source Comments The information contained in this document represents components of the legal health record. It is not the complete legal health record.[facility]
--- OUTSIDE RECORDS SUMMARY | 2025-05-21 18:02 | XMS_ITS | Clinical Summary ---
Author Organization [facility], Address [address] 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
--- OUTSIDE RECORDS SUMMARY | 2025-05-21 18:02 | XMS_ITS | Encounter Summary ---
Author Organization [facility] Address 399 [facility] [address] [place] [address] Phone Care Team Providers Care Knotter Hand Name Role Phone Cindi Houston MD Primary Care Provider [phone] Pito Maya DO Primary Care Provider [phone] Encounter Details Date Type Department Care Team (Late st Contact Info) Description 03/25/2022 Procedure Pass [facility] [address] [place] [address] Social History Tobacco Use Types Packs/Day Years [...] st Contact Info) Description 03/13/2025 Procedure Pass [facility] [address] [place] [address] 08/10/2025 3:30 PM EDT Appointment [facility] [address] [place] [address] Hugo Barrios MD 22 [facility], [address] [place] [address] 09/13/2025 2:40 PM EDT Office Visit [facility] [address] [place] [address] 3rd Floor, [address] [place] [address] Hugo Barrios MD 22 [facility], [address] [place] [address] [email or web address] documented as of this encounter Visit Diagnoses Not on filedocumented in this encounter Care Teams Knotter Hand Relationship Specialty Start Date End Date Cindi Houston MD [address] [place] [address] [email or web address] PCP - General Family Medicine 09/19/2109/20 Pito Maya DO [address] [address] PCP - General Family Medicine 09/22/23 documented as of this encounter Additional Source Comments The information contained in this document represents components of the legal health record. It is not the complete legal health record.[facility]
--- OUTSIDE RECORDS SUMMARY | 2025-05-21 18:02 | XMS_ITS | Encounter Summary ---
Author Organization [facility], Address [address] [place] [address] Phone Care Team Providers Care Sales Operations Coordinator Name Role Phone Cindi Houston MD Primary Care Provider Encounter Details Date Type Department Care Team (Late st Contact Info) Description 08/05/2022 Documentation Only [facility], [facility] [place] [address] [place] [phone] Cindi Houston MD [address] [place], [place] [id number] Social History Tobacco Use Types Packs/Day Years [...] 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
--- OUTSIDE RECORDS SUMMARY | 2025-05-21 18:02 | XMS_ITS | Encounter Summary ---
Author Organization [facility] Address [address] [place] [address] [place] [address] Phone Care Team Providers Care Socket Welder Helper Name Role Phone NachoRichardson hicks Primary Care Provider Najma Jung MD Primary Care Provider Cindi Houston MD Primary Care Provider [phone] Pito Maya DO Primary Care Provider Encounter Details Date Type Department Care Team (Late st Contact Info) Description 10/09/2020 Procedure Pass [facility] Admitting Dept Virtual Department [address] [place] [address] Social History Tobacco Use Types Packs/Day Years [...] (Late Contact Info) Description 03/13/2025 Procedure Pass [facility] [address] [place] [address] 08/10/2025 3:30 PM EDT Appointment [facility] [address] [place] [address] Hugo Barrios MD 22 [facility], [address] [address] [email or web address] 09/13/2025 2:40 PM EDT Office Visit [facility] [address] 3rd Floor, [address] [place] [address] Hugo Barrios MD 22 [facility], [address] [address] [email or web address] documented as of this encounter Visit Diagnoses Not on filedocumented in this encounter Care Teams Socket Welder Helper Relationship Specialty Start Date End Date Richardson Griffith DO [address] [place] [address] [email or web address] PCP - General Family Medicine 04/07/19 08/19/21 Najma Jung MD [address] [place] [address] [email or web address] PCP - General Family Medicine 08/20/21 09/18/21 Cindi Houston MD [address] [place] [address] [email or web address] PCP - General Family Medicine 09/19/2109/20 Pito Maya DO [address] [address] PCP - General Family Medicine 09/22/23 documented as of this encounter Additional Source Comments The information contained in this document represents components of the legal health record. It is not the complete legal health record.[facility]
--- OUTSIDE RECORDS SUMMARY | 2025-05-21 18:02 | XMS_ITS | Encounter Summary ---
Author Organization [facility] Address 399 [facility] [address] [place] [address] Phone Care Team Providers Care Hr Coordinator Name Role Phone NachoRichardson hicks Primary Care Provider Najma Jung MD Primary Care Provider Cindi Houston MD Primary Care Provider [phone] Pito Maya DO Primary Care Provider Encounter Details Date Type Department Care Team (Late st Contact Info) Description 02/27/2021 Procedure Pass [facility] [address] [place] [address] Social History Tobacco Use Types Packs/Day Years [...] st Contact Info) Description 03/13/2025 Procedure Pass [facility] [address] [place] [address] 08/10/2025 3:30 PM EDT Appointment [facility] [address] [place] [address] Hugo Barrios MD 22 [facility], [address] [place] [address] [email or web address] 09/13/2025 2:40 PM EDT Office Visit [facility] [address] [place] [address] 3rd Floor, [address] [place] [address] Hugo Barrios MD 22 [facility], [address] [address] [email or web address] documented as of this encounter Visit Diagnoses Not on filedocumented in this encounter Care Teams Hr Coordinator Relationship Specialty Start Date End Date Richardson Griffith DO [address] [place] [address] [email or web address] PCP - General Family Medicine 04/07/19 08/19/21 Najma Jung MD [address] [place] [address] [email or web address] PCP - General Family Medicine 08/20/21 09/18/21 Cindi [place] MD [address] [place] [address] [email or web address] PCP - General Family Medicine 09/19/2109/20 Pito Maya DO [address] [address] PCP - General Family Medicine 09/22/23 documented as of this encounter Additional Source Comments The information contained in this document represents components of the legal health record. It is not the complete legal health record.[facility]
--- OUTSIDE RECORDS SUMMARY | 2025-05-21 18:02 | XMS_ITS | Clinical Summary ---
Author Organization [facility] Address [address] [place] [address] Care Team Providers Care Front Of House Manager Name Role Phone Unavailable Primary Care Provider Unavailabl e Allergies Active Allergy Reactions Criticality Noted Date Comments Allopurinol Unknown Clopidogrel Unknown Iodinated Contrast Media Unknown Meperidine Unknown Medications aspirin 81 MG chewable tablet 1 (One) tablet(s) by mouth once a day 10/22/2022 Active fenofibrate micronized (LOFIBRA) 134 MG capsule 1 (One) capsule(s) by mouth once a day 10/22/2022 Active insulin glargine (LANTUS U-100 INSULIN) 100 unit/mL injection 30 units once a day 10/22/2022 Active hydroCHLOROthia zide (HYDRODIURIL) 25 MG tablet 1 (One) tablet(s) by mouth once a day 10/22/2022 Active metoprolol ER (TOPROL-XL) 100 MG 24 hr tablet 1 (One) tablet(s) by mouth once a day 10/22/2022 Active metroNIDAZOLE (METROGEL) 1 % gel gel topical 10/22/2022 Active metFORMIN ER (GLUCOPHAGE-XR) 750 MG 24 hr tablet 2 (Two) tablet(s) by mouth once a day 10/22/2022 Active rosuvastatin (CRESTOR) 40 MG tablet 1 (One) tablet(s) by mouth once a day 10/22/2022 Active cholecalciferol (VITAMIN D3) 125 mcg (5,000 unit) Tab tablet 1 (One) tablet(s) by mouth once a day 10/22/2022 Active semaglutide (OZEMPIC) 0.25 mg or 0.5 mg (2 mg/3 mL) injection 0.5 (One half) mg once a week 10/22/2022 Active warfarin (COUMADIN) 4 MG tablet tablet(s) by mouth 10/22/2022 Active Social History Tobacco Use Types Packs/Day Years Used Date Smoking Tobacco: Never Assessed Sex and Gender Information Value Date Recorded Sex Assigned at Not on file Legal Sex Male 12:46 AM EST Gender Identity Unable to obtain 07/16/2023 12:4 6 AM EST Sexual Orientation Not on file Plan of Treatment Health Maintenance Due Date Last Done Comments Blood Pressure 1958 Hemoglobin A1c 1958 Lipid Panel 1958 PSA 1958 Prostate Cancer Screening 1958 SDM 1958 Urine Microalbumin 1958 Depression Screening 1970 Hepatitis C Screening 02/17/1976 DTaP,Tdap,and Td Vaccines (1 - Tdap) 1977 Pneumococcal Vaccine: 50+ Ye ars (1 of 2 - PCV) 1977 CT Colonography 2003 Colonoscopy 2003 Colorectal Cancer Screening 2003 FIT 2003 FOBT 2003 Multitarget Stool DNA (Cologuard) 2003 Sigmoidoscopy 2003 Zoster Vaccine (1 of 2) 02/17/2008 COVID-19 Vaccine (1 - 2024-2 6 season) 2025 Influenza Vaccine (#1) 2025 Meningococcal B Vaccines Aged Out No longer eligible based on patient's age to complete this topic Meningococcal Vaccines Aged Out No lo nger eligible based on patient's age to complete this topic
--- OUTSIDE RECORDS SUMMARY | 2025-05-21 18:02 | XMS_ITS | Encounter Summary ---
Author Organization [facility] Address [address] [place] [address] Phone Care Team Providers Care Stencil Sprayer Name Role Phone NachoRichardson hicks Primary Care Provider [phone] Najma Jung MD Primary Care Provider Cindi Houston MD Primary Care Provider [phone] Pito Maya DO Primary Care Provider Encounter Details Date Type Department Care Team (Late st Contact Info) Description 08/07/2020 Procedure Pass [facility] [address] [place] [address] Social History Tobacco Use Types Packs/Day Years [...] st Contact Info) Description 03/13/2025 Procedure Pass [facility] [address] [place] [address] 08/10/2025 3:30 PM EDT Appointment [facility] [address] [place] [address] Hugo Barrios MD [address] [facility] [address], [address] [place] [address] [email or web address] 09/13/2025 2:40 PM EDT Office Visit [facility] [address] [place] [address] 3rd Floor, [address] [place] [address] Hugo Barrios MD [address] [facility] [address] [facility], [address] [address] [email or web address] documented as of this encounter Visit Diagnoses Not on filedocumented in this encounter Care Teams Stencil Sprayer Relationship Specialty Start Date End Date Richardson Griffith DO [address] [place] [address] [email or web address] PCP - General Family Medicine 04/07/19 08/19/21 Najma Jung MD [address] [place] [address] [email or web address] PCP - General Family Medicine 08/20/21 09/18/21 Cindi Houston MD [address] [place] [address] [email or web address] PCP - General Family Medicine 09/19/2109/20 Pito Maya DO [address] [address] PCP - General Family Medicine 09/22/23 documented as of this encounter Additional Source Comments The information contained in this document represents components of the legal health record. It is not the complete legal health record.[facility]
--- OUTSIDE RECORDS SUMMARY | 2025-05-21 18:02 | XMS_ITS | Clinical Summary ---
Author Organization [facility] Address [address] [place] [address] Phone Care Team Providers Care Manager Testing Name Role Phone Pito Maya DO Primary Care Provider [phone] Allergies Active Allergy Reactions Criticality Noted Date [...] EDT): Patient had a recent admission at [facility] for a syncopal episode. It was felt [...] and eating a large steak and cheese drier and grinder tender. 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 The valve [employer] is [employer] [facility]. The peak gradient [...] branch block Troponins flat while admitted at [facility] Has not had a stress test in [...] valve in the aortic position. The valve [employer] is [employer] [facility]. 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; Essential hypertension from [...] st Contact Info) Description 03/13/2025 Procedure Pass [facility] [address] [place] [address] 08/10/2025 3:30 PM EDT Appointment [facility] [address] [place] [address] Hugo Barrios MD [address] [facility], [address] [address] 09/13/2025 2:40 PM EDT Office Visit [facility] [address] [place] [address] 3rd Floor, [address] [place] [address] Hugo Barrios MD [address] [place] [address], [address] [place] [address] [email or web address] Health Maintenance Due Date Last Done Comments [...] EDT) SODIUM 137 133 - 146 mmol/L [facility] CHLORIDE 104 96 - 108 mmol/L [facility] POTASSIUM 4.7 3.3 - 5.1 mmol/L [facility] CO2 26 21 - 35 mmol/L [facility] BUN 21(H) 6 - 19 mg/dL [facility] CREATININE 1.10 0.5 - 1.5 mg/dL [facility] GLUCOSE 165(H) 70 - 99 mg/dL [facility] CALCIUM 9.2 8.4 - 10.3 mg/dL [facility] EGFR 72 >59 mL/min/1.7 3m2 [facility] Comment:Estimated glomerular filtration rate calculated using the CKD-EPI equation. ANION GAP 12 10 - 20 mmol/L [facility] Blood 02/03/2020 8:52 AM EDT 02/03/2020 8:55 AM EDT us Yahir Alston MD LAB BLOOD BKR ORDERABLES Final Result [facility] [address] [place] [address] from Last 3 Months or Most Recently Relevant to Health Maintenance Insurance [facility] PPO MEDICARE A BLUE CROSS OUT OF [facility] PPO MEDICARE A BLUE CROSS OUT OF STATE [place] [address] [place] [address] CROSS OUT OF [facility]ITICAL [facility] [place] [place] [address] OUT [facility] PPO MEDICARE A BLUE CROSS OUT OF STATE PPO BLUE CROSS OUT OF [facility] PPO MEDICARE A BLUE CROSS OUT OF STATE PPO MEDICARE A [address] [place], [place] [id number] [place], [place] [address] MEDICARE A Advance Directives For more information, please contact: [phone] (9AM - 5PM [place], Wednesday-[place]) * Full Code (Presumed) (Latest Code Status on File) Date Activated Date Inactivated Comments 09/01/2018 1:55 AM 09/02/2018 3:30 PM Care Teams Manager Testing Relationship Specialty Start Date End Date Pito Maya DO [address] [address] PCP - General Family Medicine 09/22/23 Additional Source Comments The information contained in this document represents components of the legal health record. It is not the complete legal health record.[facility]
[2025-05-22 08:49] LABS: Prothrombin Time Whole Bld POC 43.6 sec (11.1-13.5); ~PT, ~INR - Anti Coag Clinic 3.6 (0.9-1.1)
== END 2025-05-21 15:34 | disposition home or self-care (01) ==
LOC: HO.ACS 14:46
PROVIDERS: PCP Family Medicine; Visit Provider Internal Medicine Medical Oncology
DX: Z79.01 Long term (current) use of anticoagulants (principal)

== ENCOUNTER → 2025-05-21 14:46 | Outpatient (BNVA) | payer BC, SELFPAY | PROVIDERS: PCP Family Medicine; Visit Provider Internal Medicine Medical Oncology | DX: Z79.01 Long term (current) use of anticoagulants (principal) | CPT/HCPCS: 85610; 99211 ==